=== PATIENT | female | born 1960 | race Caucasian/White ===

== ENCOUNTER 2021-08-06 06:05 | Observation (INO) ==
--- NOTE | 2021-07-14 10:51 | PAT Medication Instructions ---
Medication Instructions Date of Service July 14, 2021 Home Medications Bone Broth 2 cap PO QAM [place] 1 cap PO QAM Turmeric Powder 1 dose PO QAM alfalfa 650 mg tablet 650 mg PO QAM alprazolam 0.5 mg tablet (Xanax) 0.5 mg PO BID PRN ascorbic acid (vitamin C) 1,000 mg capsule,extended release 1 cap PO QAM ascorbic acid 125 mg-collagen, hydrolyzed 740 mg capsule (Collagen Plus Vitamin C) 1 cap PO QAM Adrenal Tincture Otc 1 dose PO QAM Hair Plus Tincture Otc 1 dose PO QAM Kidney Tincture Otc 1 dose PO QAM Liver Gall Bladder Tincture Otc 1 dose PO QAM Lymphatic Tincture Otc 1 dose PO QAM Multi Collagen Otc 2 tab PO QAM Plant Calcium Otc 2 tab PO QAM ibuprofen 200 mg capsule 800 mg PO Q6H PRN lidocaine 5 % topical patch 1 patch TOPICAL DAILY PRN [id number] oil 350 mg- 400 mg capsule 1 cap PO QAM Continue as directed lidocaine 5 % topical patch 1 patch TOPICAL DAILY PRN (avoid placement near surgery site prior to surgery) ASK your surgeon for instructions ibuprofen 200 mg capsule 800 mg PO Q6H PRN STOP taking 2 weeks before surgery (or as soon as possible if surgery is within 2 weeks) Bone Broth 2 cap PO QAM [place] 1 cap PO QAM Turmeric Powder 1 dose PO QAM alfalfa 650 mg tablet 650 mg PO QAM Adrenal Tincture Otc 1 dose PO QAM Hair Plus Tincture Otc 1 dose PO QAM Kidney Tincture Otc 1 dose PO QAM Liver Gall Bladder Tincture Otc 1 dose PO QAM Lymphatic Tincture Otc 1 dose PO QAM Multi Collagen Otc 2 tab PO QAM Plant Calcium Otc 2 tab PO QAM [id number] [id number] oil 350 mg- 400 mg capsule 1 cap PO QAM DO NOT take the morning of surgery ascorbic acid (vitamin C) 1,000 mg capsule,extended release 1 cap PO QAM ascorbic acid 125 mg-collagen, hydrolyzed 740 mg capsule (Collagen Plus Vitamin C) 1 cap PO QAM Take morning of surgery With a small sip of water, OTHERWISE NOTHING TO EAT OR DRINK AFTER MIDNIGHT: alprazolam 0.5 mg tablet (Xanax) 0.5 mg PO BID PRN (if needed) Take evening before surgery alprazolam 0.5 mg tablet (Xanax) 0.5 mg PO BID PRN (if needed) Other Notes If you have any questions please call us at [phone] or [phone] or [phone] or [phone]
--- NOTE | 2021-07-15 14:03 | Anesthesiology Consultation ---
Date of Service July 15, 2021 Assessment & Plan (1) Encounter for pre-operative examination: - leukopenia, 3.6 reduced from 4.5 one year ago. Fritz with surgeon's office advised will fax most recent PCP note for further review. Awaiting most recent PCP note. - Outpatient joint pathway: Pt states discussion with surgeon's office was option through DOS to either go home or stay overnight. We discussed that if she was requesting outpatient joint plan would be to go home same day unless an issue arose. She states is nervous to go home same day and would like booking changed to stay overnight. Fritz with surgeon's office aware. - COVID screening: Per assessment on 07/15/2021: Travel screen negative, no known COVID-19 positive contacts or current COVID-19 related symptoms in past 2 weeks. Patient vaccinated. Surgeon arranging preop COVID testing, scheduled 07/21/2021. Awaiting results. Chart Review Chart Review: Pending: Refer to Additional Notes / Consult section and Patient seen in Pre Admission Testing Teaching & Discussion Pre-Anesthesia Teaching/Discussion Notes: Instructed NPO after midnight before surgery, except medications with 15 cc of water. Medication instructions provided according to the PAT guidelines. History Surgery Operation Date: 07/23/21 09:25 Proposed Procedures p OP: Right Total Hip Arthroplasty - Henrry Barcenas MD Height/Weight Height: 5 ft 4 in Weight: 69.5 kg Allergies Allergy/AdvReac Type Severity Reaction Status Date / Time doxycycline AdvReac Unknown CAN'T Verified 07/10/21 15:00 FUNCTION, CAN'T TALK Medications Home Medications Medication Instructions Recorded Confirmed Last Taken Bone Broth 2 cap PO QAM 05/06/20 07/10/21 05/05/20 [place] 1 cap PO QAM 05/06/20 07/10/21 05/05/20 Turmeric Powder 1 dose PO QAM 05/06/20 07/10/21 05/09/20 10:00 alfalfa 650 mg tablet 650 mg PO QAM 05/06/20 07/10/21 05/05/20 alprazolam 0.5 mg tablet (Xanax) 0.5 mg PO BID PRN 05/06/20 07/10/21 05/09/20 22:00 ascorbic acid (vitamin C) 1,000 mg 1 cap PO QAM 05/06/20 07/10/21 05/05/20 capsule,extended release ascorbic acid 125 mg-collagen, 1 cap PO QAM 05/06/20 07/10/21 05/05/20 hydrolyzed 740 mg capsule (Collagen Plus Vitamin C) Adrenal Tincture Otc 1 dose PO QAM 07/10/21 07/10/21 Unknown Hair Plus Tincture Otc 1 dose PO QAM 07/10/21 07/10/21 Unknown Kidney Tincture Otc 1 dose PO QAM 07/10/21 07/10/21 Unknown Liver Gall Bladder Tincture Otc 1 dose PO QAM 07/10/21 07/10/21 Unknown Lymphatic Tincture Otc 1 dose PO QAM 07/10/21 07/10/21 Unknown Multi Collagen Otc 2 tab PO QAM 07/10/21 07/10/21 Unknown Plant Calcium Otc 2 tab PO QAM 07/10/21 07/10/21 Unknown ibuprofen 200 mg capsule 800 mg PO Q6H PRN 07/10/21 07/10/21 Unknown lidocaine 5 % topical patch 1 patch TOPICAL DAILY PRN 07/10/21 07/10/21 Unknown mioft7-[id number]-other [id number] 1 cap PO QAM 07/10/21 07/10/21 Unknown oil 350 mg- 400 mg capsule Past Medical History Medical History Anxiety and depression Blood clot in vein OVER 20 YEARS AGO, R calf after Heart palpitations rare, denies dizziness, lightheadedness, chest discomfort or shortness of breath; ongoing x yrs; denies change or worsening History of restless legs syndrome with Lyme disease Hx of Lyme disease Post traumatic stress disorder Patient denies h/o stroke, seizures, heart attack, heart failure, DM, HTN, or blood transfusions. Exercise / Class Metabolic Activity II 4-5 Yardwork/Stairs/Walk up hill (denies CP or SOB with 1 FOS, ambulates with cane) Past Family History Family History Aunt Family history of diabetes mellitus Other No family history of adverse response to anesthesia Past Surgical History Surgical History H/O eye surgery LEFT EYE TITANIUM SHELF PLACED AFTER "CRACKING ORBIT" H/O foot surgery LEFT History of arthroscopy of right shoulder 05/10/20: Grade 2 view, MAC 3 ETT 7.5 + PNB. No postop issues per anesthesia progress note. History of cholecystectomy History of colonoscopy History of esophagogastroduodenoscopy (EGD) History of hemorrhoidectomy History of hysterectomy Hx of gynecological procedure VAGINAL RECONSTRUCTION AND BLADDER TACK/MESH Nausea and vomiting after administration of anesthetic agent "ALWAYS GETS MEDICATED TO PREVENT" Past Anesthesia History No Hx of Anesthesia Complications and No Family Hx of Anesthesia Complications History of PONV No Hx of Motion Sickness and History of PONV Social History Smoking Status: Light tobacco smoker tobacco type: cigarettes Smoking cigarettes per day: 5 CIGS A WEEK-NPO Do You Dip or Chew Tobacco: No Hx Alcohol Use: Yes Alcohol type: hard liquor alcohol intake frequency: a few times a month Hx Substance Use: No substance use type: does not use Review of Systems Occasional snoring, denies witnessed apneas. Patient denies chest pain, shortness of breath, dyspnea on exertion, reflux, fever, chills, cough, or wheezing. Physical Exam Vital Signs Vitals BP 138/85 P 74 TEMP 98.8 SP02 99% on RA RESP 16 Physical Full cervical extension range of motion without pain TMD 3.5 finger breaths Mallampati Score 2 Dentition: intact, denies missing, chipped or loose teeth, caps/crowns, implants or bridges Lungs: normal respiratory effort. Clear throughout to auscultation, no adventitious breath sounds Cardiac: regular rate and rhythm, no murmurs noted Carotid arteries: negative bruit bilat Lab Results Anesthesia Preop Results Results Anesthesia Widget: WBC 3.67 K/uL (4.8-10.8) L 07/15/21 Hgb 13.1 g/dL (12.0-16.0) 07/15/21 Hct 39.4 % (37-47) 07/15/21 Plt 248 K/uL (130-400) 07/15/21 Na 141 mmol/L (136-145) 07/15/21 K 3.9 mmol/L (3.5-5.1) 07/15/21 Cl 106 mmol/L (98-107) 07/15/21 CO2 31 mmol/L (21-32) 07/15/21 BUN 19 mg/dl (6-23) 07/15/21 Creat 0.85 mg/dl (0.6-1.2) 07/15/21 Glucose Level 91 mg/dl (70-99(Fasting)) 07/15/21 PT 10.9 Seconds (9.0-12.0) 07/15/21 PTT 25.3 Seconds (21.0-31.0) 07/15/21 INR 1.0 (0.9-1.1) 07/15/21 HA1c 5.0 % (4.5-5.6) 07/15/21 Urine Color Yellow 07/15/21 Urine Appearance Clear (Clear) 07/15/21 Urine pH 6.5 (4.5-7.5) 07/15/21 Urine Specific [place] 1.024 (1.000-1.030) 07/15/21 Urine Protein Negative (Negative) 07/15/21 Urine Glucose (UA) Negative (Negative) 07/15/21 Urine Ketones Negative (Negative) 07/15/21 Urine Blood Negative (Negative) 07/15/21 Urine Nitrite Negative (Negative) 07/15/21 Urine Bilirubin Negative (Negative) 07/15/21 Urine Urobilinogen Negative (Negative) 07/15/21 Urine Leukocyte Esterase Negative (Negative) 07/15/21 Blood Type O Negative 07/15/21 Antibody Screen NEGATIVE 07/15/21 Testing Electrocardiogram Date: 03/09/21 NSR, rate 61 bpm
--- NOTE | 2021-07-15 16:02 | History & Physical Report ---
Date of Service July 15, 2021 Assessment & Plan (1) Osteoarthritis of right hip: Plan: PRE-OP Diagnosis: Right hip osteoarthritis Planned Procedure: Right total hip arthroplasty Plan: Patient is scheduled to undergo this procedure at the [facility] with a 23-hour observation admission on , July 23, [address] Henrry Barcenas. Risks and complications of the procedure such as: Infection, bleeding, pain, scarring, nerve blood vessel damage, weakness, wound problems, stiffness, incomplete relief of symptoms, hardware failure, hardware loosening, wear, fracture, tendon or ligament injury, dislocation, leg length inequality, blood clots, embolism, heart attack, stroke and were explained to the patient at her visit today. Informed consent to perform the procedure was obtained. Patient also understands risks of proceeding with surgical intervention during the COVID-19 pandemic. Currently she is asymptomatic and understands that she will need to be tested prior to surgery. We have already obtained preoperative medical clearance from the patient's primary care provider Dr. Fox. Patient is scheduled to meet with anesthesia at the hospital later this afternoon and while there she will obtain a CBC with differential, complete metabolic panel, PT/INR, blood type and screen, urinalysis, urine culture and sensitivity, EKG, hemoglobin A1c and a nasal culture for MRSA. During today's visit we discussed discharge planning following surgery. Patient states that she will most likely do in-home physical therapy for the first 2 weeks postoperatively in order for this was placed. We reviewed the total hip packet. We discussed total hip precautions. I recommended the patient's purchase a hip kit, raised toilet seat and shower chair. I provided her with an order to get a walker. We discussed lectures offered by [facility] offered via Zoom in regards to joint replacement surgery. I provided the patient with a handicap placard paperwork for her vehicle. We discussed antibiotic use for dental procedures following joint replacement surgery. I advised the patient that we will discharge her from the hospital on postoperative day 1 with a prescription for narcotic pain medication and an anti-inflammatory. I would like her to purchase extra strength Tylenol and a baby aspirin to use for additional pain control and blood clot prevention respectively. Advised her that the baby aspirin will be taken twice daily for the first 30 days postoperatively. Patient is scheduled for 2-week postoperative follow-up with myself on August 07 at 2 PM. Patient verbalized understanding of all information provided during today's visit. She thanks for the care that she received. She has questions or concerns should arise prior to her surgery, she will contact clinic. History of Present Illness Chief Complaint: Chief Complaint: Right hip pain Primary Care Provider: Phoenix Arias MD History of Present Illness (including history relevant to procedure): This 61-year-old female presents to clinic today for preoperative history and physica l. Patient had an insidious onset of right hip pain that developed in late April and since that time, she has had difficulty walking. She feels the pain in her groin as well as in the posterior aspect of her hip. She sometimes gets a cramping sensation in the front of her quad and burning around the knee. She did have an EMG nerve conduction study done at [facility] that she says showed some abnormalities in L4 and L5. She denies any back pain, however. She has cracking in her hips now, which is painful for her. Patient also showed Dr. Stern who attempted to aspirate fluid from the patient's hip joint under ultrasound guidance but this was unsuccessful and patient continues to have debilitating pain that requires her to use a cane for ambulatory purposes. Review Of Systems: A 12 point review of systems performed was unremarkable except for those things stated in the HPI and past medical history. Past Medical History: Problems: Right hip pain Lipoma Tobacco user Anxiety Procedure History Procedure Procedure Date Comments Suturing of ligament of shoulder joint Hysterectomy Cholecystotomy Reconstruction of orbital cavity Excision 01/01/2021 Allergies and Sensitivities: doxycycline(Unable to speak) doxycycline(Unable to move) Social history: Patient states she occasionally smokes cigarettes and occasionally consumes alcohol. She denies any illicit drug use. Family history: Diabetes Current Home Meds: (Last Updated 07/15 11:17) ALPRAZolam (ALPRAZolam 0.5 mg oral tablet) 30 each Responsible Provider: BRIANA ARANDA 12/22 11:05 acyclovir (acyclovir 400 mg oral tablet) 30 each Responsible Provider: PHOENIX ARIAS 12/22 11:05 Initial Wt: 07/15 69.0 kg 152 lb Allergies Allergy/AdvReac Type Severity Reaction Status Date / Time doxycycline AdvReac Unknown CAN'T Verified 07/10/21 15:00 FUNCTION, CAN'T TALK Home Medications Medication Instructions Recorded Confirmed Type Bone Broth 2 cap PO QAM 05/06/20 07/10/21 History [place] 1 cap PO QAM 05/06/20 07/10/21 History Turmeric Powder 1 dose PO QAM 05/06/20 07/10/21 History alfalfa 650 mg tablet 650 mg PO QAM 05/06/20 07/10/21 History alprazolam 0.5 mg tablet (Xanax) 0.5 mg PO BID PRN 05/06/20 07/10/21 History ascorbic acid (vitamin C) 1,000 mg 1 cap PO QAM 05/06/20 07/10/21 History capsule,extended release ascorbic acid 125 mg-collagen, 1 cap PO QAM 05/06/20 07/10/21 History hydrolyzed 740 mg capsule (Collagen Plus Vitamin C) Adrenal Tincture Otc 1 dose PO QAM 07/10/21 07/10/21 History Hair Plus Tincture Otc 1 dose PO QAM 07/10/21 07/10/21 History Kidney Tincture Otc 1 dose PO QAM 07/10/21 07/10/21 History Liver Gall Bladder Tincture Otc 1 dose PO QAM 07/10/21 07/10/21 History Lymphatic Tincture Otc 1 dose PO QAM 07/10/21 07/10/21 History Multi Collagen Otc 2 tab PO QAM 07/10/21 07/10/21 History Plant Calcium Otc 2 tab PO QAM 07/10/21 07/10/21 History ibuprofen 200 mg capsule 800 mg PO Q6H PRN 07/10/21 07/10/21 History lidocaine 5 % topical patch 1 patch TOPICAL DAILY PRN 07/10/21 07/10/21 History -xgl-sso-other [id number] 1 cap PO QAM 07/10/21 07/10/21 History oil 350 mg- 400 mg capsule Past Med/Surg History Medical History Anxiety and depression Blood clot in vein OVER 20 YEARS AGO, R calf after Heart palpitations rare, denies dizziness, lightheadedness, chest discomfort or shortness of breath; ongoing x yrs; denies change or worsening History of restless legs syndrome with Lyme disease Hx of Lyme disease Post traumatic stress disorder Surgical History H/O eye surgery LEFT EYE TITANIUM SHELF PLACED AFTER "CRACKING ORBIT" H/O foot surgery LEFT History of arthroscopy of right shoulder 05/10/20: Grade 2 view, MAC 3 ETT 7.5 + PNB. No postop issues per anesthesia progress note. History of cholecystectomy History of colonoscopy History of esophagogastroduodenoscopy (EGD) History of hemorrhoidectomy History of hysterectomy Hx of gynecological procedure VAGINAL RECONSTRUCTION AND BLADDER TACK/MESH Nausea and vomiting after administration of anesthetic agent "ALWAYS GETS MEDICATED TO PREVENT" Family History Aunt Family history of diabetes mellitus Other No family history of adverse response to anesthesia Social History Smoking Status: Light tobacco smoker Cigarettes Per Day: 5 CIGS A WEEK-NPO; Second Hand Exposure: No; Hx Alcohol Use: Yes Alcohol type: hard liquor Hx Substance Use: No Preferred Language: Sinhala Communication Ability: Effective Attendant Honor Bar Required: No Beliefs That Will Affect Care: None Current Living Situation: Significant Other current occupational status: unemployed Feels Safe at Home: Yes Assistive Devices: Cane and Glasses Review of Systems All systems reviewed & are unremarkable except as noted in Subjective Physical Exam Physical Exam: Physical Exam: (relevant to the procedure, including heart and lung evaluation) General: Alert and oriented x3 with proper grooming and hygiene Eyes: Pupils are equal and reactive to light with accommodation. Extraocular movements are intact Throat: Deferred due to COVID-19 precautions Cardiac: Regular rate and rhythm with no murmurs or gallops appreciated Lungs: Clear to auscultation throughout with no wheezing, rales or rhonchi Abdomen: Mildly obese, nondistended, nontender with normoactive bowel sounds Extremities: Right hip: Flexion is limited to 110 degrees, external rotation 35 degrees and internal rotation 12 degrees. Straight leg raise test causes referred pain to the groin and posterior lateral hip. Logroll test negative. Stinchfield test positive. Patient experiences tenderness to palpation of her groin and posterior aspect of her hip. She walks with an antalgic gait with her ambulatory assistive device. She is neurovascularly intact in the right lower extremity. Neuro: Cranial nerves II through XII are intact no motor or sensory deficit Skin: Normal in appearance no open skin areas or discharge Results & Data ([facility]) Diagnostic Findings Studies (relevant to the procedure): X-rays done include a standing AP pelvis, false profile, and cross-table lateral views of the right hip. These demonstrate well-preserved joint spaces. Very mild upsloping of the sourcil, less than 10 degrees. No fractures are visualized.
[~2021-08-06 06:05] MED LIST: ACETAMINOPHEN 500 MG TAB PO SCH; CeleBREX 200 MG CAP PO SCH; FAMOTIDINE 20 MG TAB PO SCH; General Order Problem(s) SCH; LR 500ML BOLUS, THEN 15ML/HR IV SCH; LR 60ML/HR IV SCH; ROPIVACAINE 0.5% HCL/PF 150 MG, BUPIVACAINE 0.75% MPF 20 ML, EPINEPHrine 0.15 MG, Ketor... INFIL SCH; Scopolamine 1 MG TDSY TD SCH; TRANEXAMIC ACID 1,000 MG **IV Intra-op IV SCH; TRANEXAMIC ACID 1,000 MG **IV Pre-op IV SCH; ceFAZolin 2000MG 2,000 MG/15 ML SYR IV SCH; dexAMETHasone 4 MG TAB PO SCH; traMADol HCL 50 MG TABLET PO SCH
[2021-08-06] MEDS ORDERED: BUPIVACAINE 0.5 % 5 MG/1 ML PF 10ML VIAL ONE (06:27)
--- NOTE | 2021-08-06 07:44 | History & Physical Bridge Note ---
Date of Service August 06, 2021 History & Physical Bridge Note I have examined the patient, reviewed the History & Physical and in the interval since the performance of the History & Physical I have noted the following changes of clinical significance: no changes noted. Patient asked if she could have the bone that is removed. I told her that I was fairly certain there is a hospital policy against this, but we can ask to confirm whether or not this is true.
[2021-08-06] MEDS ORDERED: fentaNYL citrate 100 MCG/2 ML VIAL ONE (07:48)
[2021-08-06] MEDS ORDERED: PROPOFOL IV EMULSION 10 MG/ML 20 ML VIAL IV ONE ×3 (07:48→09:33)
[2021-08-06] MEDS ORDERED: MIDAZOLAM HCL 1 MG/ML 2ML VIAL ONE (07:48)
[2021-08-06] MEDS ORDERED: LIDOCAINE 2% 2 ML VIAL/AMP(20MG/ML) INFIL ONE (07:48)
[2021-08-06] MEDS ORDERED: ROPIVACAINE 0.5% HCL/PF 150 MG, BUPIVACAINE 0.75% MPF 20 ML, EPINEPHrine 0.15 MG, Ketor... INFIL SCH (08:20)
[2021-08-06] MEDS ORDERED: KETAMINE 50 MG/5 ML SYRINGE ONE (09:19)
--- NOTE | 2021-08-06 10:31 | Operative Report ---
Post Operative Report Pre & Post Diagnosis Operation Date: 08/06/21 08:15 Pre-Op Diagnosis: Right Hip avascular necrosis Post-Op Diagnosis: Right Hip avascular necrosis I identified the patient and participated in the time-out.: Yes Procedure Operation Date: 08/06/21 08:15 Actual Procedures p Right Total Hip Arthroplasty(Right) - Henrry Barcenas MD Surgeon Henrry Barcenas MD [employer] BRIAN Sousa PA-C and JAMIE Yoder2. No resident or fellow was available. Estimated Blood Loss 100 Findings Consistent with Post-Op Diagnosis Specimens Right femoral head Anesthesia Type Spinal MAC Complications none Disposition Disposition: Recovery Room Indications 61-year-old female with right hip pain refractory to conservative management. X-rays and MRI were obtained. This showed evidence of avascular necrosis with edema within the femoral head and subchondral collapse of the superior femoral head weightbearing surface. I had a long discussion with her about the risks and benefits of surgery, alternatives, and expected outcomes. After reviewing all these she elected to proceed with surgery. All questions were answered. Informed consent was signed. Description of Procedure Patient was identified in the preoperative holding area and the surgical site, right hip, was marked. A spinal anesthetic was placed, then the patient was brought back to the main operating room, placed in the operating table and moved into the lateral decubitus position. Axillary roll was placed. All bony prominences were padded. Perioperative antibiotics and tranexamic acid 1 gram IV were administered. Operative extremity was prepped and draped in the normal sterile fashion. Prior to incision a multidisciplinary timeout was called. All in the room were in agreement. We began by making an incision for a posterior approach to the hip. We dissected down through subcutaneous tissues to the level of the fascia. The fascia was incised in line with the incision. Charnley bow was placed. The trochanteric bursa was excised. The piriformis and short external rotators were dissected off the posterior aspect of the hip. A box cut was made in the capsule. The femoral head was dislocated. The femoral neck cut was made at our preoperative template. The acetabulum was then exposed. The labrum was sharply excised. Contents of the cotyloid fossa were removed with electrocautery. We then began reaming at a size 8 mm less than our preoperative template. We reamed up by [address] the way up to a size 50 mm cup. This gave us good bleeding cancellus bone circumferentially. The acetabulum was then irrigated out and dried. The real Blackwell Gription cup was then impacted down into position with 45 degrees of lateral opening and 25 degrees of anteversion. A single cancellous bone screw was placed up into the ilium. Excellent fixation was obtained. An Altrx polyethylene liner for a 32 mm femoral head was then impacted into the shell. The locking mechanism was checked to ensure that it had engaged which it had. Next we turned our attention to the femur. The lateral neck was removed with a box osteotome. Intramedullary guide was used followed by the lateralizing reamer. We then reamed up to a size 3 [place] stem. We then broached all the way up to a size 2. We began trialing with a high offset neck and a +1.5 head. Hip was reduced. Leg lengths were symmetric. The hip was stable in extension and external rotation, and stable in the sleeper position. At 90 degrees of hip flexion the hip could be internally rotated 65 degrees before levering out of the cup. I was very happy with the stability exam. Therefore the hip was dislocated and the femoral trial was removed. The femoral canal was irrigated and dried. The real size 2 high offset [place] femoral stem was opened up. This was impacted down into position. It sat at the same level as the femoral trial. Therefore the 32 mm ceramic femoral head with a +1.5 mm offset was opened up and gently impacted down onto the trunnion. The hip was atraumatically reduced. Another 1 gram of IV tranexamic acid was started prior to closure. The wound was irrigated out with sterile Betadine solution. The periarticular injection cocktail was then placed. The short external rotators, piriformis, and posterior capsule were repaired through drill holes in the greater trochanter u sing #2 Vicryl. The fascia was run with a looped #1 PDS. The subcutaneous layer was closed with #1 PDS. The dermal layer was closed with 2-0 Vicryl. Zip line was used for the skin followed by a Silverlon dressing. A compressive dressing was then placed. The patient was then rolled supine. Leg lengths were rechecked and were symmetric. An abduction pillow was placed. Sedation was lifted and the patient was transferred to recovery room in stable condition. Summary of implants: Depuy Blackwell Gription Acetabular Shell Sector Cup, 50 mm outer diameter Blackwell Cancellous bone screw, 6.5 x 35 mm Blackwell Altrx Polyethylene Acetabular Liner, Neutral, with a 32 mm inner diameter DePuy [place] Femoral stem with [place], 12/14 taper, size 2 high offset 32 mm ceramic femoral head with +1.5 offset Postoperative course: Patient will be admitted to the hospital from the recovery room. Patient will be weightbearing as tolerated with posterior hip precautions. Aspirin for DVT prophylaxis I attest to the content of the Intraoperative Record and any orders documented therein. Any exceptions are noted below.
[2021-08-06] MEDS ORDERED: METOCLOPRAMIDE HCL INJ 5 MG/ML 2 ML VIAL IV PRN (10:39)
[2021-08-06] MEDS ORDERED: ALUMINUM/MAGNESIUM SUSP 30 ML UDC PO PRN (10:39)
[2021-08-06] MEDS ORDERED: MAGNESIUM HYDROXIDE SUSP 30 ML UDC PO PRN (10:39)
[2021-08-06] MEDS ORDERED: NALOXONE HCL 0.4 MG/1 ML VIAL/CARP IV PRN (10:39)
[2021-08-06] MEDS ORDERED: diphenhydrAMINE 50 MG/ML VIAL IV PRN (10:39)
[2021-08-06] MEDS ORDERED: bisacodyL 10 MG SUPP PR PRN (10:39)
[2021-08-06] MEDS ORDERED: ONDANSETRON INJ 2 MG/ML 2 ML VIAL IV PRN (10:39)
--- NOTE | 2021-08-06 10:39 | Operative Report ---
Post Operative Report Pre & Post Diagnosis Operation Date: 08/06/21 08:15 Pre-Op Diagnosis: Right Hip Osteoarthritis Post-Op Diagnosis: Right Hip Osteoarthritis I identified the patient and participated in the time-out.: Yes Procedure Operation Date: 08/06/21 08:15 Actual Procedures p Right Total Hip Arthroplasty(Right) - Henrry Barcenas MD Surgeon Henrry Barcenas MD [facility] BRIAN Sousa PA-C and Robyn Vance MS-2. No resident or fellow was available. Estimated Blood Loss 100 Findings Consistent with Post-Op Diagnosis Specimens femoral head Description of Procedure I was present during the entire case assisting with positioning, prepping, draping, wound retraction, wound closure, dressing and abduction pillow placement. No fellow present. Please see Dr. Barcenas procedure note for specifics of the case. I attest to the content of the Intraoperative Record and any orders documented therein. Any exceptions are noted below.
[2021-08-06] MEDS ORDERED: IBUPROFEN 200 MG PO PRN (10:42)
[2021-08-06] MEDS ORDERED: ALPRAZolam 0.5 MG TABLET PO PRN (10:42)
[2021-08-06] MEDS ORDERED: LIDOCAINE 5% 1 PATCH TD PRN (10:42)
[2021-08-06] MEDS ORDERED: KETOROLAC TROMETHAMINE 15 MG/ML VIAL IV SCH (10:45)
[2021-08-06] MEDS ORDERED: SODIUM CHLORIDE 0.9% 1000ML 1,000 ML IV SCH (10:45)
--- NOTE | 2021-08-06 11:07 | XRay Report ---
XR pelvis 1-2V routine CLINICAL HISTORY: Post Surgical COMPARISON: Right hip radiographs April 16, 2021. FINDINGS: Alignment of the total right hip arthroplasty is anatomic. No periprosthetic fracture or u nexpected radiopaque foreign body. Acetabular screw is noted. IMPRESSION: Expected findings following total right hip arthroplasty. ACT 112: Negative or not required by law. Electronically signed by: Deric Ayala M.D. 08/06/2021 11:06 AM
--- NOTE | 2021-08-06 12:05 | Anesthesiology Progress Note ---
Date of Service August 06, 2021 Anesthesia Post Procedure Vital Signs Vital Signs: Temp Pulse Resp BP Pulse Ox 08/06/21 11:35 55 L 16 137/81 98 08/06/21 11:25 54 L 16 129/82 97 08/06/21 11:15 36.6 C 54 L 16 132/74 97 08/06/21 11:05 59 L 18 128/70 97 08/06/21 10:55 58 L 16 132/75 98 08/06/21 10:45 54 L 16 120/79 94 08/06/21 10:37 36.7 C 75 18 112/74 97 08/06/21 06:32 36.7 C 63 20 156/95 H 97 Transfer of Care Handoff Completed per policy Notes Mental Status: alert / awake / arousable and participated in evaluation Patient Amnestic to Procedure: Yes Nausea / Vomiting: adequately controlled Pain: adequately controlled Airway Patency, RR, SpO2: stable & adequate BP & HR: stable & adequate Hydration State: stable & adequate Neuraxial Anesthesia: was administered and sensory block is resolving Anesthetic Complications: no major complications apparent
[2021-08-06] MEDS: ACETAMINOPHEN 500 MG TAB PO SCH ×2 (13:58→22:11)
[2021-08-06] MEDS: KETOROLAC TROMETHAMINE 15 MG/ML VIAL IV SCH ×2 (13:59→20:19)
[2021-08-06] MEDS: Scopolamine CHECK PATCH PLACEMENT SCH ×2 (16:05→23:00)
[2021-08-06] MEDS: ceFAZolin 2000MG 2,000 MG/15 ML SYR IV SCH (16:05)
[2021-08-06] MEDS ORDERED: TRANEXAMIC ACID / 0.7% NACL 1,000 MG/100 ML BAG IV SCH (16:45)
[2021-08-06] MEDS: oxyCODONE HCL IR 5 MG TAB (IMMEDIATE RELEASE) PO PRN ×2 (17:44→22:11)
[2021-08-06] MEDS: DOCUSATE SODIUM 100 MG CAP PO SCH (20:20)
[2021-08-06] MEDS ORDERED: COUGH DROP (SUGAR FREE) LOZ 24 LOZ/1 BOX BUCCAL ONE (20:27)
[2021-08-06] MEDS ORDERED: SENNA 8.6 MG TAB PO SCH (21:00)
[2021-08-07] MEDS: ceFAZolin 2000MG 2,000 MG/15 ML SYR IV SCH (01:49)
[2021-08-07] MEDS: KETOROLAC TROMETHAMINE 15 MG/ML VIAL IV SCH ×2 (01:51→08:46)
[2021-08-07] MEDS: oxyCODONE HCL IR 5 MG TAB (IMMEDIATE RELEASE) PO PRN ×3 (02:30→10:52)
[2021-08-07] MEDS: ACETAMINOPHEN 500 MG TAB PO SCH (06:20)
[2021-08-07 07:03] LABS: Basophils # (auto) 0.01 K/uL (0-0.2); Basophils % (auto) 0.1 %; Eosinophils # (auto) 0.01 K/uL (0-0.5); Eosinophils % (auto) 0.1 %; Hematocrit (blood only) 38.1 % (37-47); Hemoglobin 13.5 g/dL (12.0-16.0); Immature Granulocytes # (auto) 0.01 K/uL (0.00-0.02); Immature Granulocytes % (auto) 0.1 %; Lymphocytes # (auto) 1.61 K/uL (1.2-3.4); Lymphocytes % (auto) 20.8 %; Mean Corpuscular Hemoglobin 33.7 pg (25-34); Mean Corpuscular Hgb Conc 35.4 g/dL (32-36); Mean Platelet Volume 9.6 fL (7.4-10.4); Monocytes # (auto) 0.74 K/uL (0.11-0.59); Monocytes % (auto) 9.6 %; Neutrophils # (auto) 5.36 K/uL (1.4-6.5); Neutrophils % (auto) 69.3 %; Platelet Count 232 K/uL (130-400); RDW Coefficient of Variation 12.6 % (11.5-14.5); RDW Standard Deviation 44.1 fL (36.4-46.3); Red Blood Count 4.01 M/uL (4.2-5.4); White Blood Count 7.74 K/uL (4.8-10.8)
[2021-08-07 07:23] LABS: BUN Creatinine Ratio 21.7 (10-20); Calcium 9.7 mg/dl (8.5-10.1); Est GFR (African American) 113.2 ml/min; Est GFR (Non-African American) 97.7 ml/min; Potassium 3.9 mmol/L (3.5-5.1)
[2021-08-07] MEDS ORDERED: dexAMETHasone 4 MG TAB PO SCH (08:00)
[2021-08-07] MEDS: Scopolamine CHECK PATCH PLACEMENT SCH (08:46)
[2021-08-07] MEDS: DOCUSATE SODIUM 100 MG CAP PO SCH (08:48)
[2021-08-07] MEDS ORDERED: [UNRECOGNIZED DRUG - OTHER] PO SCH (09:00)
[2021-08-07] MEDS ORDERED: [UNRECOGNIZED DRUG - OTHER] PO SCH (09:00)
[2021-08-07] MEDS ORDERED: ASCORBIC ACID COLLAGEN PO SCH (09:00)
[2021-08-07] MEDS ORDERED: ALFALFA PO SCH (09:00)
[2021-08-07] MEDS ORDERED: TURMERIC PO SCH (09:00)
[2021-08-07] MEDS ORDERED: MORINGA PO SCH (09:00)
[2021-08-07] MEDS ORDERED: MULTIVITAMIN TAB PO SCH (09:00)
[2021-08-07] MEDS ORDERED: [UNRECOGNIZED DRUG - OTHER] PO SCH (09:00)
[2021-08-07] MEDS ORDERED: ASPIRIN 81 MG ECTAB PO SCH (09:00)
[2021-08-07] MEDS ORDERED: CALCIUM PO SCH (09:00)
[2021-08-07] MEDS ORDERED: [UNRECOGNIZED DRUG - OTHER] PO SCH (09:00)
[2021-08-07] MEDS ORDERED: [UNRECOGNIZED DRUG - OTHER] PO SCH (09:00)
[2021-08-07] MEDS ORDERED: OMEGA-3 (PURIFIED FISH OIL) 1 GM CAP PO SCH (09:00)
[2021-08-07] MEDS ORDERED: [UNRECOGNIZED DRUG - OTHER] PO SCH (09:00)
[2021-08-07] MEDS ORDERED: ASCORBIC ACID 500 MG TAB PO SCH (09:00)
[2021-08-07] MEDS ORDERED: [UNRECOGNIZED DRUG - OTHER] PO SCH (09:00)
[2021-08-07] MEDS ORDERED: [UNRECOGNIZED DRUG - OTHER] PO SCH (09:00)
--- NOTE | 2021-08-07 09:59 | Orthopedic Progress Note ---
Date of Service August 07, 2021 Assessment & Plan (1) S/P total hip arthroplasty: Plan: Total hip precautions reviewed Weightbearing as tolerated with walker assistance Keep Silverlon dressing in place Ice with easy wrap Pain control with p.o. medication DVT prophylaxis with aspirin and MELLY stockings Plan on discharge home around lunchtime today with in-home physical therapy Abduction pillow use x6 weeks Follow-up at [facility] orthopedics as previously scheduled With questions contact our clinic at [phone] Admission and Anticipated Discharge Date Admission Date: August 06, 2021 Subjective This 61-year-old female is day 1 status post right total hip arthroplasty. She states that she is doing very well. She states that her pain is well controlled with p.o. pain medication. She states that she already worked with PT and OT this morning and was able to do a complete lap around the [address]. She states that she is ready to be discharged home. Currently she denies any signs or symptoms of infection. She has no chest pain, shortness of breath, fever, chills, sweats, lethargy, numbness or tingling in her right lower extremity. She also denies nausea, vomiting, diarrhea or difficulty voiding. Review of Systems Review of Systems: All systems reviewed & are unremarkable except as noted in Subjective Physical Exam Physical Exam: Right hip: Patient is able to perform active straight leg raise test. She is able to actively dorsi and plantarflex her foot. Quad strength is 3 out of 5. Patient is neurovascular intact in the right lower extremity. Her calf is soft and supple nontender to palpation. Logroll test negative. Hip flexion to 90 degrees passively causes no pain. Patient experiences no pain with light passive external rotation but does have some slight tension with very light passive internal rotation. Her surgical incision site is covered with a Silverlon that is clean dry and intact. Results & Data ([facility]) Vital Signs (Past 12 Hours) Vital Signs Temp Pulse Resp BP Pulse Ox 08/07/21 07:23 36.4 C L 54 L 16 129/88 100 08/07/21 02:50 37.2 C 57 L 16 148/84 H 98 08/07/21 00:26 36.6 C 65 16 145/75 H 99 Diagnostic Findings Laboratory Results WBC 7.74 K/uL (4.8-10.8) 08/07/21 06:33 RBC 4.01 M/uL (4.2-5.4) L 08/07/21 06:33 Hgb 13.5 g/dL (12.0-16.0) 08/07/21 06:33 Hct 38.1 % (37-47) 08/07/21 06:33 MCV 95.0 fL (80-100) 08/07/21 06:33 MCH 33.7 pg (25-34) 08/07/21 06:33 MCHC 35.4 g/dL (32-36) 08/07/21 06:33 RDW Std Deviation 44.1 fL (36.4-46.3) 08/07/21 06:33 RDW Coeff of Thomas 12.6 % (11.5-14.5) 08/07/21 06:33 Plt Count 232 K/uL (130-400) 08/07/21 06:33 MPV 9.6 fL (7.4-10.4) 08/07/21 06:33 Immature Gran % (Auto) 0.1 % 08/07/21 06:33 Neut % (Auto) 69.3 % 08/07/21 06:33 Lymph % (Auto) 20.8 % 08/07/21 06:33 [place] % (Auto) 9.6 % 08/07/21 06:33 Eos % (Auto) 0.1 % 08/07/21 06:33 Baso % (Auto) 0.1 % 08/07/21 06:33 Neut # (Auto) 5.36 K/uL (1.4-6.5) 08/07/21 06:33 Lymph # (Auto) 1.61 K/uL (1.2-3.4) 08/07/21 06:33 [place] # (Auto) 0.74 K/uL (0.11-0.59) H 08/07/21 06:33 Eos # (Auto) 0.01 K/uL (0-0.5) 08/07/21 06:33 Baso # (Auto) 0.01 K/uL (0-0.2) 08/07/21 06:33 Immature Gran # (Auto) 0.01 K/uL (0.00-0.02) 08/07/21 06:33 Sodium 136 mmol/L (136-145) 08/07/21 06:33 Potassium 3.9 mmol/L (3.5-5.1) 08/07/21 06:33 Chloride 105 mmol/L (98-107) 08/07/21 06:33 Carbon Dioxide 27 mmol/L (21-32) 08/07/21 06:33 Anion Gap 4 (3-11) 08/07/21 06:33 BUN 13 mg/dl (6-23) 08/07/21 06:33 Creatinine 0.60 mg/dl (0.6-1.2) 08/07/21 06:33 Est Cr Clr Drug Dosing 89.0 ml/min 08/07/21 06:33 Est GFR ( Amer) 113.2 ml/min 08/07/21 06:33 Est GFR (Non-Af Amer) 97.7 ml/min 08/07/21 06:33 BUN/Creatinine Ratio 21.7 (10-20) H 08/07/21 06:33 Glucose 105 mg/dl (70-99(Fasting)) H 08/07/21 06:33 Calcium 9.7 mg/dl (8.5-10.1) 08/07/21 06:33 SARS-CoV-2, RNA, NAAT NEGATIVE (NEGATIVE) 08/06/21 06:40 Impressions Pelvis X-Ray 08/06/21 10:39 XR pelvis 1-2V routine CLINICAL HISTORY: Post Surgical COMPARISON: Right hip radiographs April 16, 2021. FINDINGS: Alignment of the total right hip arthroplasty is anatomic. No periprosthetic fracture or unexpected radiopaque foreign body. Acetabular screw is noted. IMPRESSION: Expected findings following total right hip arthroplasty. ACT 112: Negative or not required by law. Electronically signed by: Deric Ayala M.D. 08/06/2021 11:06 AM
--- NOTE | 2021-08-07 10:05 | Discharge Summary ---
Date of Service August 07, 2021 Admission HPI Per Admitting Provider History of Present Illness (including history relevant to procedure): This 61-year-old female presents to clinic today for preoperative history and physical. Patient had an insidious onset of right hip pain that developed in late April and since that time, she has had difficulty walking. She feels the pain in her groin as well as in the posterior aspect of her hip. She sometimes gets a cramping sensation in the front of her quad and burning around the knee. She did have an EMG nerve conduction study done at [facility] that she says showed some abnormalities in L4 and L5. She denies any back pain, however. She has cracking in her hips now, which is painful for her. Patient also showed Dr. Stern who attempted to aspirate fluid from the patient's hip joint under ultrasound guidance but this was unsuccessful and patient continues to have debilitating pain that requires her to use a cane for ambulatory purposes. Review Of Systems: A 12 point review of systems performed was unremarkable ex cept for those things stated in the HPI and past medical history. Past Medical History: Problems: Right hip pain Lipoma Tobacco user Anxiety Procedure History Procedure Procedure Date Comments Suturing of ligament of shoulder joint Hysterectomy Cholecystotomy Reconstruction of orbital cavity Excision 01/01/2021 Allergies and Sensitivities: doxycycline(Unable to speak) doxycycline(Unable to move) Social history: Patient states she occasionally smokes cigarettes and occasionally consumes alcohol. She denies any illicit drug use. Family history: Diabetes Current Home Meds: (Last Updated 07/15 11:17) ALPRAZolam (ALPRAZolam 0.5 mg oral tablet) 30 each Responsible Provider: BRIANA ARANDA 12/22 11:05 acyclovir (acyclovir 400 mg oral tablet) 30 each Responsible Provider: PHOENIX ARIAS 12/22 11:05 Initial Wt: 07/15 69.0 kg 152 lb Admission Exam Per Admitting Provider Physical Exam: (relevant to the procedure, including heart and lung evaluation) General: Alert and oriented x3 with proper grooming and hygiene Eyes: Pupils are equal and reactive to light with accommodation. Extraocular movements are intact Throat: Deferred due to COVID-19 precautions Cardiac: Regular rate and rhythm with no murmurs or gallops appreciated Lungs: Clear to auscultation throughout with no wheezing, rales or rhonchi Abdomen: Mildly obese, nondistended, nontender with normoactive bowel sounds Extremities: Right hip: Flexion is limited to 110 degrees, external rotation 35 degrees and internal rotation 12 degrees. Straight leg raise test causes referred pain to the groin and posterior lateral hip. Logroll test negative. Stinchfield test positive. Patient experiences tenderness to palpation of her groin and posterior aspect of her hip. She walks with an antalgic gait with her ambulatory assistive device. She is neurovascularly intact in the right lower extremity. Neuro: Cranial nerves II through XII are intact no motor or sensory deficit Skin: Normal in appearance no open skin areas or discharge Principal Diagnosis Right hip osteoarthritis (avascular necrosis) Discharge Exam Right hip: Patient is able to perform active straight leg raise test. She is able to actively dorsi and plantarflex her foot. Quad strength is 3 out of 5. Patient is neurovascular intact in the right lower extremity. Her calf is soft and supple nontender to palpation. Logroll test negative. Hip flexion to 90 degrees passively causes no pain. Patient experiences no pain with light passive external rotation but does have some slight tension with very light passive internal rotation. Her surgical incision site is covered with a Silverlon that is clean dry and intact. Discharge Data Allergies Allergy/AdvReac Type Severity Reaction Status Date / Time doxycycline AdvReac Unknown CAN'T Verified 08/06/21 06:30 FUNCTION, CAN'T TALK Procedures Performed Operation Date: 08/06/21 08:15 Actual Procedures p Right Total Hip Arthroplasty(Right) - Henrry Barcenas MD Hospital Course (1) S/P total hip arthroplasty: Patient had an uneventful overnight stay following right total hip arthr oplasty. She states she did very well with PT and OT this morning. She is ready to be discharged home. She discussed in-home physical therapy with case management. She is very pleased with the results of her surgery. Total hip precautions reviewed Weightbearing as tolerated with walker assistance Keep Silverlon dressing in place Ice with easy wrap Pain control with p.o. medication DVT prophylaxis with aspirin and MELLY stockings Plan on discharge home around lunchtime today with in-home physical therapy Abduction pillow use x6 weeks Follow-up at [facility] as previously scheduled With questions contact our clinic at [phone] Total Time Total Time Spent Total Time Spent (In Minutes): 20 mins Discharge Plan Discharge Items Patient Disposition: Home - Home Health Services Reason For Visit: Right Hip Osteoarthritis Discharge Diagnosis: Right Hip Osteoarthritis Activity: As commented below Lifting: None Bathing: Keep incision dry Bathing Comment: May shower tomorrow Sexual Activity: Wait until after follow-up appointment Exercise/Sports: Wait until after follow-up appointment Driving/Machine Use: No driving until cleared by podiatrist orthopedic Weightbearing: Right weightbearing Weightbearing Comment: as tolerated with walker assistance Non-emergency contact: Surgeon Call non-emergency contact if: you have any medication questions, your pain is not controlled, your temperature is above 101.5, your wound has increased drainage and your wound pain has increased Follow-up/Referrals: Phoenix Arias MD [Primary Care Provider] - Diet: Regular Addtl Attending Provider Instructions: Post-operative Instructions Dear Patient and Family/Friends, Before you are discharged from the hospital, it is important to know what to expect when you get home after surgery. To that end, we have created this sheet of discharge instructions which covers many commonly asked questions. Make sure you go through this sheet in its entirety with your nurse before you are discharged. Please note that we will go over the specifics of your surgery and recovery when you return for your first post-operative visit. Sincerely, Dr. Barcenas Medications 1. Oxycodone 5 mg: take 1-2 tabs every 4-6 hours as needed for pain. A prescription will be sent to your pharmacy for this medication. 2. Diclofenac Sodium 75 mg: take 1 tab twice daily for the first 30 days post operatively for pain and inflammation relief. A prescription will be sent to your pharmacy with 1 refill. 3. Aspirin 81 mg: take 1 tab twice daily for blood clot prevention. Please purchase. 4. Extra Strength Tylenol 500 mg: take 2 tabs every 6-8 hrs as needd for additional pain relief. Pain Expect to be in a fair amount of pain after surgery. Remember, our goal is not to eliminate your pain, but to make it tolerable. It is a good idea to stay ahead of your pain by taking the medications you were prescribed once you get home. Typically, the pain starts improving 3-7 days after surgery. You should start weaning off the narcotic pain medication (oxycodone, hydrocodone, hydromorphone, morphine) as soon as your pain improves. Please call our office if your pain is not adequately controlled. Ice Ice your operative site at least 5 times a day for 15-30 minutes at a time. Make sure you have a thin cloth between the ice or cooling unit and your skin to prevent allan bite. This is especially important if you received a nerve block. Continue icing your operative site for the first 5-7 days after surgery, then as needed. Diet/Nausea/Vomiting Start by drinking clear liquids and eating crackers. If you can tolerate this, then you may resume your normal diet. If you feel nauseated or vomit, take Zofran/ondansetron (if prescribed). Please call our office if you have intractable nausea or vomiting, or, if after hours, you may go to the Emergency Room for help. Constipation Constipation is a common side effect of narcotic pain medication. If you have not had a bowel movement within 2 days after surgery, we recommend purchasing an over the counter laxative such as Milk of Magnesia, Dulcolax, or Miralax from a local pharmacy, and taking it as instructed. Call our clinic if any questions. Nerve block The anesthesia team sometimes places a nerve block to help with post-operative pain control. This results in significant numbness and inability to move the extremity. The nerve block usually wears off in 8-12 hours, but sometimes can last up to 24 hours. Please call our office if you are still unable to move your extremity after 24 hours, unless you received a pain pump to take home. Nerve blocks typically wear off quickly, so start taking pain medication as soon as you start feeling soreness near your surgical site. Weight bearing and Range of Motion. Do not bear any weight through your operative extremity immediately after surgery. If you had upper extremity surgery, do not lift anything with that arm. If you are in a knee brace, keep it locked in place until your follow-up. We will discuss your weight bearing, range of motion, and lifting restrictions in detail at your first post-operative appointment. Continuous Passive Motion (CPM) Machine If you were prescribed a CPM machine, it will start after your first post- operative appointment, at which time we will give you instructions on the range of motion settings and duration of treatment Physical therapy You will be given a prescription for physical therapy or occupational therapy at your first post-operative appointment. Typically, patients start therapy within 1 week of surgery Wound care and showering We will inspect your wound at your first post-operative visit, and may do a dressing change at that time. Most patients will be in a water-proof dressing that is removed 14 days after surgery. It is normal to see some dried blood on the dressing. Do not remove your dressing, paper strips or sutures yourself unless you are given permission. Showering is allowed the day after surgery. Do not scrub or remove any dressings. The wound should not be submerged underwater (i.e. in a bathtub or pool) until 4 weeks after surgery MELLY stockings If you were given white stockings, these are to be worn at all times except to shower (on both legs) for the first 2 weeks after surgery. Driving You may not drive while taking narcotic pain medication or while in a cast, splint, sling or brace. You, the patient, need to make the final determination about when you are safe to drive, however, the earliest you may consider driving after surgery is below: Hand/Wrist/Elbow Surgery: 3 days Shoulder Surgery: 2 weeks Hip,/Knee/Ankle Surgery: 4 weeks Fracture repair: 6 weeks Return to Work Your return to work depends on what surgery was done and what type of work you do. Please bring any paperwork your employer needs completed to your first post-operative visit. Also, bring a description of your job duties, as this helps us to understand what risks you may face at work. Travel Avoid long distance travel (greater than 1 hour) in airplanes and cars for the first 6 weeks after surgery. If you must travel, you need to have a Doppler ultrasound done before you travel to rule out a blood clot in your legs. Follow-up You should have a follow-up appointment already scheduled 1-2 days after surgery. If not, please contact our office to make this appointment before you leave the hospital. When to call the office It is normal to have swelling and bruising in the limb that was operated on. This will improve with time. It is also normal to have fevers for the first 2 days after surgery. Reasons you should call your doctor include: Uncontrolled pain; Nausea, vomiting, or constipation that does not improve with medication; Fevers over 101.5, chills, sweats; Drainage or bleeding from the wound; Foul odor; Spreading areas of redness; Any other concerns Pending Studies at Discharge: No Stand-Alone Forms: My [facility] [address], Smoking Cessation Medications and DC Order Prescriptions: New oxycodone 5 mg tablet 5 mg PO Q4H Qty: 28 RF: 0 diclofenac sodium 75 mg tablet,delayed release (DR/EC) 75 mg PO BID 30 Days Qty: 60 RF: 1 Continued alprazolam [Xanax] 0.5 mg Tablet 0.5 mg PO BID PRN (Reason: Anxiety) RF: 0 alfalfa 650 mg Tablet 650 mg PO QAM RF: 0 ascorbic acid (vitamin C) 1,000 mg Capsule, Extended Release 1 cap PO QAM RF: 0 Collagen Plus Vitamin C 125-740 mg Capsule 1 cap PO QAM RF: 0 Bone Broth 2 cap PO QAM RF: 0 [place] 1 cap PO QAM RF: 0 Turmeric Powder 1 dose PO QAM RF: 0 Plant Calcium Otc 2 tab PO QAM RF: 0 Multi Collagen Otc 2 tab PO QAM RF: 0 ibuprofen 200 mg Capsule 800 mg PO Q6H PRN (Reason: Pain) RF: 0 lidocaine 5 % Adhesive Patch,Medicated 1 patch TOPICAL DAILY PRN (Reason: Pain) RF: 0 [id number] oil 350-400 mg Capsule 1 cap PO QAM RF: 0 Kidney Tincture Otc 1 dose PO QAM RF: 0 Lymphatic Tincture Otc 1 dose PO QAM RF: 0 Adrenal Tincture Otc 1 dose PO QAM RF: 0 Hair Plus Tincture Otc 1 dose PO QAM RF: 0 Liver Gall Bladder Tincture Otc 1 dose PO QAM RF: 0 Discharge Orders: Discharge Order (Routine); Ordered 08/07/21 Ordered By: Henrry Sousa Admission Data Admit Date/Time: 08/06/21 10:39 Attending Provider: Henrry Barcenas Admit Provider: Henrry Barcenas Primary Care Provider: Phoenix Arias Other Providers: [facility]
[2021-08-07] MEDS ORDERED: CeleBREX 200 MG CAP PO SCH (21:00)
== END 2021-08-07 13:34 | disposition home health service (06) ==
LOC: ASU 06:05 → 3E 06:05

== ENCOUNTER 2022-08-15 16:19 | Inpatient (IN) ==
[2022-08-15] MEDS ORDERED: SODIUM CHLORIDE 0.9% 1000ML 500 ML IV ONE (16:31)
[2022-08-15] MEDS ORDERED: HYDROmorphone INJ 1 MG/ML SYRINGE IV STA (16:31)
[2022-08-15] MEDS ORDERED: ONDANSETRON INJ 2 MG/ML 2 ML VIAL IV STA (16:31)
[2022-08-15 16:52] LABS: Hematocrit (blood only) 41.6 % (37.0-47.0); Hemoglobin 14.6 g/dl (12.0-16.0); Mean Corpuscular Hgb Conc 35.1 g/dL (32.0-36.0); Mean Platelet Volume 9.2 fL (9.4-12.4); Platelet Count 222 K/uL (130-400); RDW Standard Deviation 46.1 fL (36.4-46.3); Red Blood Count 4.29 M/uL (4.20-5.40); White Blood Count 3.42 K/ul (4.8-10.8)
--- NOTE | 2022-08-15 16:58 | Emergency Department Note ---
Impression & Plan Acute right hip pain, Dislocation of right hip ED Provider Note NAME: PITO LI AGE: 62 SEX: F : 1960 ARRIVES VIA: Ambulance INFORMANT: [Patient] ED PROVIDER(S): [Alex Loving MD] CHIEF COMPLAINT: Hip pain HISTORY OF PRESENT ILLNESS: The patient is a 62-year-old female with a history of a right hip replacement who states that about 45 minutes ago she was in the shower. She had her right leg up on a shelf shaving. She turned the right leg in and felt the right hip pop out of position. She understands that she went past center with the knee and she was told never to do this. She had immediate pain. She did not fall. She denies any other injury. No loss of consciousness. In route, she was given 200 mcg of IV fentanyl for pain control. The pain is starting to return. She feels spasms of the muscle in the area of the right hip. Patient is not on blood thinning agents. She takes medication for anxiety fairly regularly. She is quite anxious at the moment. PMHx/PSHx: See Below SOCIAL HISTORY: See Below. PHYSICAL EXAM: GENERAL: Patient is in moderate distress from pain, anxious. HEENT: No acute trauma, normocephalic atraumatic, mucous membranes moist, no nasal congestion. NECK: No stridor, no adenopathy, no meningismus, trachea is midline. LUNGS: Clear to auscultation bilaterally, no wheeze, no rhonchi, breath sounds equal. HEART: Without murmurs gallops or rubs, regular rate and rhythm. ABDOMEN: Soft, nontender, bowel sounds positive, no peritonitis. EXTREMITIES: No cyanosis or edema. The patient has a strong distal right pedal pulse. The right lower extremity is slightly flexed at the knee and internally rotated. She is tender in the area of the right hip and any movement of the right hip causes significant pain. No pain at the knee, ankle or foot. NEUROLOGIC: Oriented x 3, no acute motor or sensory deficits, no focal weakness. SKIN: No rash, no jaundice, no diaphoresis. DIFFERENTIAL DIAGNOSIS: Hip dislocation, hip fracture, sprain, strain, contusion, neurovascular compromise, among others. EMERGENCY DEPARTMENT COURSE/PROCEDURES: Prior/Outside records reviewed: EMS notes. MEDICAL DECISION MAKING: There is no leukocytosis. There is no anemia. Platelet count is normal. No renal failure or significant electrolyte abnormality. COVID test returned negative. Right hip and pelvis films per my review show a right hip dislocation. There was no fracture. On exam, the patient had pain in the area of the right hip. The right lower extremity was internally rotated and flexed slightly at the knee. There was a strong distal right dorsalis pedis pulse. I could not find evidence for injury elsewhere by exam or history. Patient received IV Dilaudid for pain control. She was given a 500 cc saline bolus. She received IV Zofran for nausea. She was made NPO. The patient had eaten about 2.5 hours ago. She would be ready for conscious/ deep sedation at around 10 PM. I spoke with Dr. Kevin of orthopedics. We discussed the case. Anesthesia was consulted. They felt the patient would be appropriate for the OR at 8 PM, 2 hours earlier than the 10 PM required by our protocols. The patient will be sent to the OR for her hip reduction. She understands she does have to wait a few more hours until the appropriate time post ingestion has been reached. She is currently resting comfortably after the Dilaudid. DISPOSITION: Patient is being transferred to the OR for hip reduction. Past Med/Surg History Medical History Anxiety and depression Blood clot in vein 20+ years ago Right calf () Heart palpitations Rare occurrences x years History of COVID-19 Early 10/2021, runny nose, DUMONT > resolved History of restless legs syndrome with Lyme disease Hx of Lyme disease Leukopenia Chronic, PCP aware/monitoring Lipoma of arm Post traumatic stress disorder Surgical History (Updated 01/08/22 @ 10:17 by Margoth Liu RN) H/O excision of mass Left upper arm by a [employer] [facility] Dr. Dany Dumont Lipoma H/O eye surgery LEFT EYE TITANIUM SHELF PLACED AFTER "CRACKING ORBIT" H/O foot surgery LEFT History of arthroscopy of right shoulder 05/10/20: Grade 2 view, MAC 3 ETT 7.5 + PNB. No postop issues per anesthesia progress note. History of cholecystectomy History of colonoscopy History of esophagogastroduodenoscopy (EGD) History of hemorrhoidectomy History of hysterectomy History of total right hip replacement 08/2021 mn Hx of gynecological procedure VAGINAL RECONSTRUCTION AND BLADDER TACK/MESH Nausea and vomiting after administration of anesthetic agent "ALWAYS GETS MEDICATED TO PREVENT" S/P excision of lipoma (01/07/22) Excision Recurrent Lipoma Left Upper Extremity(Left) 6 cm x 3 cm - Ashok Carter MD, FACS Family History Aunt Family history of diabetes mellitus Other No family history of adverse response to anesthesia Social History Smoking Status: Former smoker Tobacco Type: Cigarettes Cigarettes Per Day: 5 CIGS A WEEK-NPO; Second Hand Exposure: No; Do You Dip or Chew Tobacco: No; Tobacco Cessation Education Requested by Patient: No Hx Alcohol Use: Yes Alcohol type: wine Alcohol Intake Frequency: Monthly or Less Hx Substance Use: No Preferred Language: Armenian Communication Ability: Effective Visual Impairment: No Limitations High Wire Artist Required: No Beliefs That Will Affect Care: None marital status: Current Living Situation: Significant Other Current Living Situation Comment: lives in 2 story home with significant other current occupational status: unemployed How many Children do You have: 2 Other Information That Helps Us Care for You: No Feels Safe at Home: Yes Safety Concerns: Feels Safe At This Time Diet: Atkins during the past year weight has: decreased > 10 lbs Assistive Devices: None Allergies Allergies Allergy/AdvReac Type Severity Reaction Status Date / Time doxycycline AdvReac Unknown CAN'T Verified 01/07/22 07:02 FUNCTION, CAN'T TALK Home Meds Home Medications Medication Instructions Recorded Confirmed Bone Broth 2 cap PO QAM 05/06/20 01/07/22 Moringa 1 cap PO QAM 05/06/20 01/07/22 Turmeric Powder 1 dose PO QAM 05/06/20 12/31/21 alfalfa 650 mg tablet 650 mg PO QAM 05/06/20 01/07/22 alprazolam 0.5 mg tablet (Xanax) 0.5 mg PO BID PRN Anxiety 05/06/20 01/07/22 ascorbic acid (vitamin C) 1,000 mg 1 cap PO QAM 05/06/20 01/07/22 capsule,extended release ascorbic acid 125 mg-collagen, 1 cap PO QAM 05/06/20 01/07/22 hydrolyzed 740 mg capsule (Collagen Plus Vitamin C) Adrenal Tincture Otc 1 dose PO UD 07/10/21 01/07/22 Hair Plus Tincture Otc 1 dose PO QAM 07/10/21 01/07/22 Kidney Tincture Otc 1 dose PO QAM 07/10/21 01/07/22 Liver Gall Bladder Tincture Otc 1 dose PO QAM 07/10/21 01/07/22 Lymphatic Tincture Otc 1 dose PO QAM 07/10/21 01/07/22 Multi Collagen Otc 2 tab PO QAM 07/10/21 01/07/22 Plant Calcium Otc 2 tab PO QAM 07/10/21 01/07/22 [id number] [id number] 1 cap PO QAM 07/10/21 01/07/22 oil 350 mg- 400 mg capsule Previous Rx's Medication Instructions Recorded diclofenac sodium 75 mg 75 mg PO BID Postoperative pain 08/07/21 tablet,delayed release and inflammation relief 30 days #60 tabs oxycodone 5 mg tablet 5 - 10 mg PO .[id number] PRN pain, 01/07/22 for initial therapy, max 6 tabs per day #5 tabs Results & Data (ED) Vital Signs Vital Signs - 24 hr 08/15/22 16:35 08/15/22 16:35 08/15/22 16:37 Temperature 36.6 C Temperature Source Oral Pulse Rate 90 92 H Pulse Rate [Apical] Pulse Rate from SpO2 Sensor 95 H Pulse Rhythm [Apical] Respiratory Rate 16 26 H Respiratory Effort / Characteristics Non-Labored Spontaneous Respiratory Depth Normal Respiratory Pattern Regular Blood Pressure 161/81 H Blood Pressure [Left Arm] Blood Pressure Mean 107 Blood Pressure Mean [Left Arm] Pulse Oximetry 100 100 97 Oxygen Delivery Method Room Air Room Air Oxygen Flow Rate Sepsis Recent Fever Within 48 Hours No Sepsis New/Unexplained Change in Mental Status N/A Sepsis Action Taken by Nursing No Action Required 08/15/22 16:40 08/15/22 16:50 08/15/22 17:00 Temperature Temperature Source Pulse Rate 92 H 93 H Pulse Rate [Apical] Pulse Rate from SpO2 Sensor 93 H 92 H Pulse Rhythm [Apical] Respiratory Rate 15 10 L Respiratory Effort / Characteristics Respiratory Depth Respiratory Pattern Blood Pressure 170/89 H Blood Pressure [Left Arm] Blood Pressure Mean 133 Blood Pressure Mean [Left Arm] Pulse Oximetry 97 96 Oxygen Delivery Method Oxygen Flow Rate Sepsis Recent Fever Within 48 Hours Sepsis New/Unexplained Change in Mental Status Sepsis Action Taken by Nursing 08/15/22 17:00 08/15/22 17:10 08/15/22 17:20 Temperature Temperature Source Pulse Rate 83 85 92 H Pulse Rate [Apical] Pulse Rate from SpO2 Sensor 83 86 92 H Pulse Rhythm [Apical] Respiratory Rate 15 17 25 H Respiratory Effort / Characteristics Respiratory Depth Respiratory Pattern Blood Pressure Blood Pressure [Left Arm] Blood Pressure Mean Blood Pressure Mean [Left Arm] Pulse Oximetry 97 99 96 Oxygen Delivery Method Oxygen Flow Rate Sepsis Recent Fever Within 48 Hours Sepsis New/Unexplained Change in Mental Status Sepsis Action Taken by Nursing 08/15/22 17:30 08/15/22 17:40 08/15/22 17:50 Temperature Temperature Source Pulse Rate 83 86 85 Pulse Rate [Apical] Pulse Rate from SpO2 Sensor 84 87 85 Pulse Rhythm [Apical] Respiratory Rate 14 18 14 Respiratory Effort / Characteristics Respiratory Depth Respiratory Pattern Blood Pressure Blood Pressure [Left Arm] Blood Pressure Mean Blood Pressure Mean [Left Arm] Pulse Oximetry 97 98 95 Oxygen Delivery Method Oxygen Flow Rate Sepsis Recent Fever Within 48 Hours Sepsis New/Unexplained Change in Mental Status Sepsis Action Taken by Nursing 08/15/22 18:00 08/15/22 18:00 08/15/22 18:10 Temperature Temperature Source Pulse Rate 81 79 Pulse Rate [Apical] Pulse Rate from SpO2 Sensor 79 80 Pulse Rhythm [Apical] Respiratory Rate 21 15 Respiratory Effort / Characteristics Respiratory Depth Respiratory Pattern Blood Pressure 142/82 H Blood Pressure [Left Arm] Blood Pressure Mean 97 Blood Pressure Mean [Left Arm] Pulse Oximetry 97 97 Oxygen Delivery Method Oxygen Flow Rate Sepsis Recent Fever Within 48 Hours Sepsis New/Unexplained Change in Mental Status Sepsis Action Taken by Nursing 08/15/22 18:20 08/15/22 18:30 08/15/22 18:40 Temperature Temperature Source Pulse Rate 82 79 75 Pulse Rate [Apical] Pulse Rate from SpO2 Sensor 81 78 76 Pulse Rhythm [Apical] Respiratory Rate 28 H 10 L 14 Respiratory Effort / Characteristics Respiratory Depth Respiratory Pattern Blood Pressure Blood Pressure [Left Arm] Blood Pressure Mean Blood Pressure Mean [Left Arm] Pulse Oximetry 94 97 96 Oxygen Delivery Method Room Air Oxygen Flow Rate Sepsis Recent Fever Within 48 Hours Sepsis New/Unexplained Change in Mental Status Sepsis Action Taken by Nursing 08/15/22 18:50 08/15/22 19:00 08/15/22 19:00 Temperature Temperature Source Pulse Rate 78 81 Pulse Rate [Apical] Pulse Rate from SpO2 Sensor 80 77 Pulse Rhythm [Apical] Respiratory Rate 16 20 Respiratory Effort / Characteristics Respiratory Depth Respiratory Pattern Blood Pressure 137/84 Blood Pressure [Left Arm] Blood Pressure Mean 97 Blood Pressure Mean [Left Arm] Pulse Oximetry 97 95 Oxygen Delivery Method Oxygen Flow Rate Sepsis Recent Fever Within 48 Hours Sepsis New/Unexplained Change in Mental Status Sepsis Action Taken by Nursing 08/15/22 19:10 08/15/22 19:17 08/15/22 19:17 Temperature Temperature Source Pulse Rate 84 103 H Pulse Rate [Apical] Pulse Rate from SpO2 Sensor 85 104 H Pulse Rhythm [Apical] Respiratory Rate 15 24 Respiratory Effort / Characteristics Respiratory Depth Respiratory Pattern Blood Pressure 173/91 H Blood Pressure [Left Arm] Blood Pressure Mean 135 Blood Pressure Mean [Left Arm] Pulse Oximetry 98 97 Oxygen Delivery Method Oxygen Flow Rate Sepsis Recent Fever Within 48 Hours Sepsis New/Unexplained Change in Mental Status Sepsis Action Taken by Nursing 08/15/22 19:20 08/15/22 20:43 Temperature 36.5 C Temperature Source Temporal Artery Scan Pulse Rate 88 Pulse Rate [Apical] 79 Pulse Rate from SpO2 Sensor 88 Pulse Rhythm [Apical] Regular Respiratory Rate 16 13 Respiratory Effort / Characteristics Non-Labored Respiratory Depth Normal Respiratory Pattern Regular Blood Pressure Blood Pressure [Left Arm] 134/82 Blood Pressure Mean Blood Pressure Mean [Left Arm] 99 Pulse Oximetry 98 99 Oxygen Delivery Method Oxymask Oxygen Flow Rate 4 Sepsis Recent Fever Within 48 Hours Sepsis New/Unexplained Change in Mental Status Sepsis Action Taken by Longterm Medications Current Medication List: was personally reviewed by me Laboratory Data Attestation: I reviewed the patient's lab results. 08/15/22 16:33 08/15/22 16:33 Lab Results 08/15/22 08/15/22 08/15/22 Range/Units 16:33 16:33 17:29 WBC 3.42 L (4.8-10.8) K/ul RBC 4.29 (4.20-5.40) M/uL Hgb 14.6 (12.0-16.0) g/dl Hct 41.6 (37.0-47.0) % MCV 97.0 (80.0-100.0) fL MCH 34.0 (25.0-34.0) pg MCHC 35.1 (32.0-36.0) g/dL RDW Std Deviation 46.1 (36.4-46.3) fL RDW Coeff of Thomas 13.0 (11.5-14.5) % Plt Count 222 (130-400) K/uL MPV 9.2 L (9.4-12.4) fL Sodium 139 (136-145) mmol/L Potassium 3.7 (3.5-5.1) mmol/L Chloride 104 (98-107) mmol/L Carbon Dioxide 27 (21-32) mmol/L Anion Gap 8 (3-11) BUN 16 (6-23) mg/dl Creatinine 0.73 (0.6-1.2) mg/dl Est Cr Clr Drug Dosing 70.8 ml/min Est GFR ( Amer) 101.6 ml/min Est GFR (Non-Af Amer) 87.7 ml/min BUN/Creatinine Ratio 21.9 H (10-20) Glucose 118 H (70-99(Fasting)) mg/dl Calcium 10.2 (8.6-10.3) mg/dl SARS-CoV-2, RNA, NAAT NEGATIVE (NEGATIVE) Administered Medications Docusate Sodium (Docusate Sodium 100 Mg Cap) 100 mg PO BID SHANNAN Stop: 09/14/22 21:27 Last Admin: 08/15/22 22:31 Dose: 100 mg Documented By: OLIVIA Hydromorphone HCl (Hydromorphone Inj 0.5 Mg/0.5 Ml Syr) 0.5 mg IV Q15M PRN PRN Reason: Pain Stop: 08/29/22 16:30 Last Admin: 08/15/22 19:19 Dose: 0.5 mg Documented By: Admin: 08/15/22 18:08 Dose: 0.5 mg Documented By: Admin: 08/15/22 17:36 Dose: 0.5 mg Documented By: YULIANA Sodium Chloride (Nss 1000ml) 1,000 mls @ 100 mls/hr IV .Q10H SHANNAN Stop: 08/16/22 06:00 Last Admin: 08/15/22 21:38 Dose: 100 mls/hr Documented By: OLIVIA Oxycodone HCl (Oxycodone Hcl Ir 5 Mg Tab (Immediate Release)) 5 - 10 mg PO Q4H PRN PRN Reason: Pain or Pre PT Stop: 08/29/22 21:27 Last Admin: 08/15/22 22:32 Dose: 10 mg Documented By: OLIVIA Sennosides (Senna 8.6 Mg Tab) 17.2 mg PO HS SHANNAN Stop: 09/14/22 21:27 Last Admin: 08/15/22 22:31 Dose: 17.2 mg Documented By: OLIVIA Discontinued Medications Hydromorphone HCl (Hydromorphone Inj 1 Mg/Ml Syringe) 1 mg IV NOW STA Stop: 08/15/22 16:32 Last Admin: 08/15/22 16:44 Dose: 1 mg Documented By: JAI Sodium Chloride (Nss 1000ml) 500 mls @ 999 mls/hr IV .Q31M ONE Stop: 08/15/22 17:01 Last Infusion: 08/15/22 18:19 Dose: 0 mls/hr Documented By: Admin: 08/15/22 16:45 Dose: 999 mls/hr Documented By: JAI Ondansetron HCl (Ondansetron Inj 2 Mg/Ml 2 Ml Vial) 4 mg IV NOW STA Stop: 08/15/22 16:32 Last Admin: 08/15/22 16:45 Dose: 4 mg Documented By: JAI Imaging Data Radiologist's Impression: Hip/Pelvis X-Ray 08/15/22 16:31 XR hip RT 2V w pelvis CLINICAL HISTORY: poss dislocation TECHNIQUE: 2 views of the right hip and single frontal view of the pelvis were obtained. Comparison: Comparison is made to right hip radiograph 05/07/2022 FINDINGS: There is a dislocation of the right hip. Right hip arthroplasty hardware is without fracture. No soft tissue abnormality is seen. IMPRESSION: Right hip dislocation is seen. ACT 112: Negative or not required by law. Electronically signed by: Shamar Love M.D. 08/15/2022 5:11 PM Discharge Plan Visit Data Chief Complaint: Hip Pain Stated Complaint: HIP PAIN ED Provider: Alex Loving Discharge Problem: Acute right hip pain, Dislocation of right hip Patient Disposition: Still a Patient Condition: Good Discharge Instructions Interventions: ED Discharge Assessment Last Done: 08/15/22 19:50
[2022-08-15 17:05] LABS: BUN Creatinine Ratio 21.9 (10-20); Calcium 10.2 mg/dl (8.6-10.3); Creatinine Clr Calc Pharmacy 70.8 ml/min; Est GFR (African American) 101.6 ml/min; Est GFR (Non-African American) 87.7 ml/min; Potassium 3.7 mmol/L (3.5-5.1)
--- NOTE | 2022-08-15 17:13 | XRay Report ---
XR hip RT 2V w pelvis CLINICAL HISTORY: poss dislocation TECHNIQUE: 2 views of the right hip and single frontal view of the pelvis were obtained. Comparison: Comparison is made to right hip radiograph 05/07/2022 FINDINGS: There is a dislocation of the right hip. Right hip arthroplasty hardware is without fracture. No soft tissue abnormality is seen. IMPRESSION: Right hip dislocation is seen. ACT 112: Negative or not required by law. Electronically signed by: Shamar Love M.D. 08/15/2022 5:11 PM
[2022-08-15] MEDS: HYDROmorphone INJ 0.5 MG/0.5 ML SYR IV PRN ×3 (17:36→19:19)
--- NOTE | 2022-08-15 19:38 | History & Physical Report ---
Date of Service August 15, 2022 Assessment & Plan (1) Dislocation of hip joint prosthesis: Plan: Radiographs are reviewed and shows a posterior superior dislocation of the right hip. Components look to be intact and there is no evidence of fracture or other complication. I recommend close reduction. She last ate at 2:00. She is cleared to go at 8 PM by anesthesia over in the OR. She is educated about the procedure. We talked about risks benefits and recovery. Informed consent was obtained. She does not need any preop antibiotics. History of Present Illness Primary Care Provider: Gabriel Bowers MD Janet is 1 year status post a right total hip arthroplasty by Dr. Shauna scehrer. She was in the shower shaving. She put her foot up on a bench but her knee rotated inward and her hip popped out of place. She has had no problems with the hip since surgery and complains of right hip pain. Allergies Allergy/AdvReac Type Severity Reaction Status Date / Time doxycycline AdvReac Unknown CAN'T Verified 01/07/22 07:02 FUNCTION, CAN'T TALK Home Medications Medication Instructions Recorded Confirmed Type Bone Broth 2 cap PO QAM 05/06/20 01/07/22 History Moringa 1 cap PO QAM 05/06/20 01/07/22 History Turmeric Powder 1 dose PO QAM 05/06/20 12/31/21 History alfalfa 650 mg tablet 650 mg PO QAM 05/06/20 01/07/22 History alprazolam 0.5 mg tablet (Xanax) 0.5 mg PO BID PRN Anxiety 05/06/20 01/07/22 History ascorbic acid (vitamin C) 1,000 mg 1 cap PO QAM 05/06/20 01/07/22 History capsule,extended release ascorbic acid 125 mg-collagen, 1 cap PO QAM 05/06/20 01/07/22 History hydrolyzed 740 mg capsule (Collagen Plus Vitamin C) Adrenal Tincture Otc 1 dose PO UD 07/10/21 01/07/22 History Hair Plus Tincture Otc 1 dose PO QAM 07/10/21 01/07/22 History Kidney Tincture Otc 1 dose PO QAM 07/10/21 01/07/22 History Liver Gall Bladder Tincture Otc 1 dose PO QAM 07/10/21 01/07/22 History Lymphatic Tincture Otc 1 dose PO QAM 07/10/21 01/07/22 History Multi Collagen Otc 2 tab PO QAM 07/10/21 01/07/22 History Plant Calcium Otc 2 tab PO QAM 07/10/21 01/07/22 History -vcg-dsg-other [id number] 1 cap PO QAM 07/10/21 01/07/22 History oil 350 mg- 400 mg capsule diclofenac sodium 75 mg 75 mg PO BID Postoperative pain 08/07/21 01/07/22 Rx tablet,delayed release and inflammation relief 30 days #60 tabs oxycodone 5 mg tablet 5 - 10 mg PO .[id number] PRN pain, 01/07/22 Rx for initial therapy, max 6 tabs per day #5 tabs Past Med/Surg History Medical History (Updated 08/15/22 @ 19:37 by Henrry Kevin MD) Anxiety and depression Blood clot in vein 20+ years ago Right calf () Heart palpitations Rare occurrences x years History of COVID-19 Early 10/2021, runny nose, DUMONT > resolved History of restless legs syndrome with Lyme disease Hx of Lyme disease Leukopenia Chronic, PCP aware/monitoring Lipoma of arm Post traumatic stress disorder Surgical History (Updated 01/08/22 @ 10:17 by Margoth Liu RN) H/O excision of mass Left upper arm by a [employer] [facility] Dr. Dany Dumont Lipoma H/O eye surgery LEFT EYE TITANIUM SHELF PLACED AFTER "CRACKING ORBIT" H/O foot surgery LEFT History of arthroscopy of right shoulder 05/10/20: Grade 2 view, MAC 3 ETT 7.5 + PNB. No postop issues per anesthesia progress note. History of cholecystectomy History of colonoscopy History of esophagogastroduodenoscopy (EGD) History of hemorrhoidectomy History of hysterectomy History of total right hip replacement 08/2021 mn Hx of gynecological procedure VAGINAL RECONSTRUCTION AND BLADDER TACK/MESH Nausea and vomiting after administration of anesthetic agent "ALWAYS GETS MEDICATED TO PREVENT" S/P excision of lipoma (01/07/22) Excision Recurrent Lipoma Left Upper Extremity(Left) 6 cm x 3 cm - Ashok Carter MD, FACS Family History Aunt Family history of diabetes mellitus Other No family history of adverse response to anesthesia Social History Smoking Status: Current every day smoker Tobacco Type: Cigarettes Cigarettes Per Day: 5 CIGS A WEEK-NPO; Second Hand Exposure: No; Do You Dip or Chew Tobacco: No; Hx Alcohol Use: Yes ("once in a while") Alcohol type: hard liquor Alcohol Intake Frequency: Monthly or Less Hx Substance Use: No Preferred Language: Yi Communication Ability: Effective Visual Impairment: No Limitations Real Estate Recruiter Required: No Beliefs That Will Affect Care: None marital status: Current Living Situation: Significant Other current occupational status: unemployed How many Children do You have: 2 Feels Safe at Home: Yes Diet: Atkins during the past year weight has: decreased > 10 lbs Assistive Devices: Glasses Review of Systems Review of Systems: Her health history is noted and reviewed. No problems with bleeding. She has a remote history of blood clot. No cancers or significant heart disease or diabetes. Physical Exam Physical Exam: She is laying on the hospital stretcher. Her right leg is shortened and internally rotated. She has 5 out of 5 ankle and toe plantarflexion dorsiflexion and eversion strength. She has intact sensation to light touch and 1+ DP and PT pulses she is awake alert and oriented. The right hip is painful with any movement there is no tenderness to palpation of the lower thigh knee leg or ankle. Results & Data Results & Data Vital Signs (Past 12 Hours) Vital Signs Temp Pulse Resp BP Pulse Ox O2 Del Method 08/15/22 19:20 88 16 98 08/15/22 19:17 173/91 H 08/15/22 19:17 103 H 24 97 08/15/22 19:10 84 15 98 08/15/22 19:00 81 20 95 08/15/22 19:00 137/84 08/15/22 18:50 78 16 97 08/15/22 18:40 75 14 96 08/15/22 18:30 79 10 L 97 Room Air 08/15/22 18:20 82 28 H 94 08/15/22 18:10 79 15 97 08/15/22 18:00 81 21 97 08/15/22 18:00 142/82 H 08/15/22 17:50 85 14 95 08/15/22 17:40 86 18 98 08/15/22 17:30 83 14 97 08/15/22 17:20 92 H 25 H 96 08/15/22 17:10 85 17 99 08/15/22 17:00 83 15 97 08/15/22 17:00 170/89 H 08/15/22 16:50 93 H 10 L 96 08/15/22 16:40 92 H 15 97 08/15/22 16:37 92 H 26 H 97 08/15/22 16:35 100 Room Air 08/15/22 16:35 36.6 C 90 16 161/81 H 100 Room Air
[2022-08-15] MEDS ORDERED: fentaNYL citrate PF 100 MCG/2 ML VIAL IV PRN (20:12)
[2022-08-15] MEDS ORDERED: ONDANSETRON INJ 2 MG/ML 2 ML VIAL IV PRN ×2 (20:12→21:28)
[2022-08-15] MEDS ORDERED: PROMETHAZINE HCL 6.25 MG in SODIUM CHLORIDE 0.9% 50 ML IV PRN (20:12)
[2022-08-15] MEDS ORDERED: ePHEDrine sulfate 50 MG/ML AMP IV PRN (20:12)
[2022-08-15] MEDS ORDERED: ATROPINE SULFATE 0.1 MG/ML 10ML SYR IV PRN (20:12)
--- NOTE | 2022-08-15 20:12 | Anesthesiology Consultation ---
Date of Service August 15, 2022 Assessment & Plan Chart Review Chart Review: Acceptable Risk for Surgery and Patient NOT seen in Pre Admission Testing Consults Requested none ASA [id number] Proposed Anesthesia Anesthesia Type: General Risk / Benefits Reviewed With: PT / POA / Parent / Guardian, Accepts Plan and Informed Consent Obtained History Surgery Operation Date: 08/15/22 19:35 Proposed Procedures p Closed Reduction Extremity - Henrry Kevin MD Height/Weight Height: 5 ft 3 in Weight: 63.5 kg Allergies Allergy/AdvReac Type Severity Reaction Status Date / Time doxycycline AdvReac Unknown CAN'T Verified 01/07/22 07:02 FUNCTION, CAN'T TALK Medications Home Medications Medication Instructions Recorded Confirmed Last Taken Bone Broth 2 cap PO QAM 05/06/20 01/07/22 12/30/21 [place] 1 cap PO QAM 05/06/20 01/07/22 12/30/21 Turmeric Powder 1 dose PO QAM 05/06/20 12/31/21 05/09/20 10:00 alfalfa 650 mg tablet 650 mg PO QAM 05/06/20 01/07/22 12/30/21 alprazolam 0.5 mg tablet (Xanax) 0.5 mg PO BID PRN Anxiety 05/06/20 01/07/22 01/06/22 22:00 ascorbic acid (vitamin C) 1,000 mg 1 cap PO QAM 05/06/20 01/07/22 12/30/21 capsule,extended release ascorbic acid 125 mg-collagen, 1 cap PO QAM 05/06/20 01/07/22 12/30/21 hydrolyzed 740 mg capsule (Collagen Plus Vitamin C) Adrenal Tincture Otc 1 dose PO UD 07/10/21 01/07/22 12/30/21 Hair Plus Tincture Otc 1 dose PO QAM 07/10/21 01/07/22 12/30/21 Kidney Tincture Otc 1 dose PO QAM 07/10/21 01/07/22 12/30/21 Liver Gall Bladder Tincture Otc 1 dose PO QAM 07/10/21 01/07/22 12/30/21 Lymphatic Tincture Otc 1 dose PO QAM 07/10/21 01/07/22 12/30/21 Multi Collagen Otc 2 tab PO QAM 07/10/21 01/07/22 12/30/21 Plant Calcium Otc 2 tab PO QAM 07/10/21 01/07/22 12/30/21 -sek-xel-other [id number] 1 cap PO QAM 07/10/21 01/07/22 12/30/21 oil 350 mg- 400 mg capsule diclofenac sodium 75 mg 75 mg PO BID Postoperative pain 08/07/21 01/07/22 Unknown tablet,delayed release and inflammation relief 30 days #60 tabs oxycodone 5 mg tablet 5 - 10 mg PO .[id number] PRN pain, 01/07/22 Unknown for initial therapy, max 6 tabs per day #5 tabs Active Medications Generic Name Dose Route Start Last Admin Trade Name Freq PRN Reason Stop Dose Admin Hydromorphone HCl 0.5 mg 08/15/22 16:31 08/15/22 19:19 Hydromorphone Inj 0.5 Mg/0.5 Ml Syr IV 08/29/22 16:30 0.5 mg Q15M PRN Administration Pain Past Medical History Medical History (Updated 08/15/22 @ 19:37 by Henrry Kevin MD) Anxiety and depression Blood clot in vein 20+ years ago Right calf () Heart palpitations Rare occurrences x years History of COVID-19 Early 10/2021, runny nose, DUMONT > resolved History of restless legs syndrome with Lyme disease Hx of Lyme disease Leukopenia Chronic, PCP aware/monitoring Lipoma of arm Post traumatic stress disorder Exercise / Class Metabolic Activity II 4-5 Yardwork/Stairs/Walk up hill Past Family History Family History Aunt Family history of diabetes mellitus Other No family history of adverse response to anesthesia Past Surgical History Surgical History (Updated 01/08/22 @ 10:17 by Margoth Liu RN) H/O excision of mass Left upper arm by a Pigment [employer] [facility] Dr. Dany Dumont Lipoma H/O eye surgery LEFT EYE TITANIUM SHELF PLACED AFTER "CRACKING ORBIT" H/O foot surgery LEFT History of arthroscopy of right shoulder 05/10/20: Grade 2 view, MAC 3 ETT 7.5 + PNB. No postop issues per anesthesia progress note. History of cholecystectomy History of colonoscopy History of esophagogastroduodenoscopy (EGD) History of hemorrhoidectomy History of hysterectomy History of total right hip replacement 08/2021 mn Hx of gynecological procedure VAGINAL RECONSTRUCTION AND BLADDER TACK/MESH Nausea and vomiting after administration of anesthetic agent "ALWAYS GETS MEDICATED TO PREVENT" S/P excision of lipoma (01/07/22) Excision Recurrent Lipoma Left Upper Extremity(Left) 6 cm x 3 cm - Ashok Carter MD, [facility] Past Anesthesia History No Hx of Anesthesia Complications and No Family Hx of Anesthesia Complications History of PONV No Hx of PONV and No Hx of Motion Sickness Social History Smoking Status: Current every day smoker tobacco type: cigarettes Smoking cigarettes per day: 5 CIGS A WEEK-NPO Do You Dip or Chew Tobacco: No Hx Alcohol Use: Yes ("once in a while") Alcohol type: hard liquor alcohol intake frequency: a few times a month Hx Substance Use: No substance use type: does not use Physical Exam Vital Signs Last Vital Signs Temp 36.6 C 08/15/22 16:35 Pulse 88 08/15/22 19:20 Resp 16 08/15/22 19:20 BP 173/91 H 08/15/22 19:17 Pulse Ox 98 08/15/22 19:20 O2 Del Method Room Air 08/15/22 18:30 ENMT Mouth: no dentition abnormality Thyromental Distance: > or= 3.5 Finger Breadths Mallampati Class: II Neck normal visual inspection Respiratory normal respiratory effort Auscultation: lungs clear to auscultation bilaterally Cardiovascular Rate/Rhythm: regular rate and regular rhythm Psychiatric Orientation: alert Testing Laboratory Results 08/15/22 16:33 08/15/22 16:33
[2022-08-15] MEDS ORDERED: fentaNYL citrate PF 100 MCG/2 ML VIAL ONE (20:16)
[2022-08-15] MEDS ORDERED: PROPOFOL IV EMULSION 10 MG/ML 20 ML VIAL IV ONE (20:37)
[2022-08-15] MEDS ORDERED: LIDOCAINE 2% 2 ML VIAL/AMP(20MG/ML) INFIL ONE (20:37)
[2022-08-15] MEDS ORDERED: ONDANSETRON INJ 2 MG/ML 2 ML VIAL ONE (20:37)
--- NOTE | 2022-08-15 20:43 | Operative Report ---
Post Operative Report Pre & Post Diagnosis Operation Date: 08/15/22 19:35 Pre-Op Diagnosis: Dislocation of hip joint prosthesis Post-Op Diagnosis: Dislocation of hip joint prosthesis I identified the patient and participated in the time-out.: Yes Procedure Operation Date: 08/15/22 19:35 Actual Procedures p Closed Reduction Right Hip - Henrry Kevin MD Surgeon Henrry Kevin MD [employer] none Estimated Blood Loss 0 Findings Consistent with Post-Op Diagnosis Specimens none Anesthesia Type MAC Complications none Disposition Accompanied Patient To Recovery: No Disposition: Recovery Room Indications Janet is 62. 1 year status post a right total hip replacement. Her hip dislocated today in the shower. Description of Procedure Informed consent obtained. Patient identified. She identified the procedure site as the right hip. I marked with my initials. Preop antibiotics were not indicated. She was taken to the OR positioned supine on the OR table. The anesthesia was administered. I then used the 90 degrees of hip flexion and knee flexion with longitudinal traction standing over the table. Did not reduce initially with this position. Reduced well with more extreme internal rotation and some abduction and hip flexion to about 100 degrees. Postreduction imaging was obtained showing a concentric reduction and no evidence of complication such as fracture. She was placed into a hip abduction pillow awakened from anesthesia and taken to recovery in stable condition. There were no specimens or complications. No counts. No blood loss. At the conclusion of the operation spoke to her significant other and discussed my findings and recommendations. I attest to the content of the Intraoperative Record and any orders documented therein. Any exceptions are noted below.
--- NOTE | 2022-08-15 21:05 | Anesthesiology Progress Note ---
Date of Service August 15, 2022 Anesthesia Post Procedure Vital Signs Vital Signs: Temp Pulse Pulse Resp BP BP Pulse Ox 08/15/22 21:00 78 16 147/88 H 97 08/15/22 20:50 76 14 134/75 99 08/15/22 20:43 36.5 C 79 13 134/82 99 08/15/22 19:20 88 16 98 08/15/22 19:17 173/91 H 08/15/22 19:17 103 H 24 97 08/15/22 19:10 84 15 98 08/15/22 19:00 81 20 95 08/15/22 19:00 137/84 08/15/22 18:50 78 16 97 08/15/22 18:40 75 14 96 08/15/22 18:30 79 10 L 97 08/15/22 18:20 82 28 H 94 08/15/22 18:10 79 15 97 08/15/22 18:00 81 21 97 08/15/22 18:00 142/82 H 08/15/22 17:50 85 14 95 08/15/22 17:40 86 18 98 08/15/22 17:30 83 14 97 08/15/22 17:20 92 H 25 H 96 08/15/22 17:10 85 17 99 08/15/22 17:00 83 15 97 08/15/22 17:00 170/89 H 08/15/22 16:50 93 H 10 L 96 08/15/22 16:40 92 H 15 97 08/15/22 16:37 92 H 26 H 97 08/15/22 16:35 100 08/15/22 16:35 36.6 C 90 16 161/81 H 100 O2 Del Method O2 Flow Rate 08/15/22 21:00 Room Air 08/15/22 20:50 Oxymask 4 08/15/22 20:43 Oxymask 4 08/15/22 19:20 08/15/22 19:17 08/15/22 19:17 08/15/22 19:10 08/15/22 19:00 08/15/22 19:00 08/15/22 18:50 08/15/22 18:40 08/15/22 18:30 Room Air 08/15/22 18:20 08/15/22 18:10 08/15/22 18:00 08/15/22 18:00 08/15/22 17:50 08/15/22 17:40 08/15/22 17:30 08/15/22 17:20 08/15/22 17:10 08/15/22 17:00 08/15/22 17:00 08/15/22 16:50 08/15/22 16:40 08/15/22 16:37 08/15/22 16:35 Room Air 08/15/22 16:35 Room Air Pain Intensity Right Hip: Pain Intensity: 4 Transfer of Care Handoff Completed per policy Notes Mental Status: alert / awake / arousable Patient Amnestic to Procedure: Yes Nausea / Vomiting: adequately controlled Pain: adequately controlled Airway Patency, RR, SpO2: stable & adequate BP & HR: stable & adequate Hydration State: stable & adequate Anesthetic Complications: no major complications apparent
[2022-08-15] MEDS ORDERED: diphenhydrAMINE Capsule 25 MG CAP PO PRN (21:28)
[2022-08-15] MEDS ORDERED: ALPRAZolam 0.5 MG TABLET PO PRN (21:28)
[2022-08-15] MEDS ORDERED: SODIUM CHLORIDE 0.9% 1000ML 1,000 ML IV SCH (21:28)
[2022-08-15] MEDS ORDERED: traMADol HCL 50 MG TABLET PO PRN (21:28)
[2022-08-15] MEDS ORDERED: METOCLOPRAMIDE HCL INJ 5 MG/ML 2 ML VIAL IV PRN (21:28)
[2022-08-15] MEDS ORDERED: SENNA 8.6 MG TAB PO SCH (21:28)
[2022-08-15] MEDS ORDERED: ACETAMINOPHEN 500 MG TAB PO PRN (21:28)
[2022-08-15] MEDS ORDERED: NALOXONE HCL 0.4 MG/1 ML VIAL/CARP IV PRN (21:28)
[2022-08-15] MEDS ORDERED: KETOROLAC 30 MG/ML VIAL IV PRN (21:28)
[2022-08-15] MEDS ORDERED: MAGNESIUM HYDROXIDE SUSP 30 ML UDC PO PRN (21:28)
[2022-08-15] MEDS ORDERED: bisacodyL 10 MG SUPP PR PRN (21:28)
[2022-08-15] MEDS ORDERED: ALUMINUM/MAGNESIUM SUSP 30 ML UDC PO PRN (21:28)
[2022-08-15] MEDS: DOCUSATE SODIUM 100 MG CAP PO SCH (22:31)
[2022-08-15] MEDS: oxyCODONE HCL IR 5 MG TAB (IMMEDIATE RELEASE) PO PRN (22:32)
[2022-08-16] MEDS: oxyCODONE HCL IR 5 MG TAB (IMMEDIATE RELEASE) PO PRN (04:56)
--- NOTE | 2022-08-16 07:51 | Fluoroscopy Report ---
FL hip RT 2-3V CLINICAL HISTORY: CLOSED REDUCTION RIGHT HIP TECHNIQUE: 7 views were obtained with the C-arm in the OR with the above procedure. Total fluoroscopy time was 12.7 seconds. Radiation dose was 3.2 mGy. Comparison: Comparison is made to right hip radiograph 08/15/2022 FINDINGS/IMPRESSION: Intraoperative images were obtained of the closed reduction of right hip disloca tion. Please correlate with intraoperative fluoroscopy and operative report. ACT 112: Negative or not required by law. Electronically signed by: Shamar Love M.D. 08/16/2022 7:49 AM
[2022-08-16] MEDS: DOCUSATE SODIUM 100 MG CAP PO SCH (07:54)
--- NOTE | 2022-08-16 09:12 | Orthopedic Progress Note ---
Date of Service August 16, 2022 Assessment & Plan (1) Dislocation of hip joint prosthesis: Plan: Patient was placed into a T scope brace this morning. We reviewed her Hip precautions. She can expect to have some soreness in her hip for the next several weeks. However she is safe to weight-bear as tolerated in the brace. No driving for minimum 1 week. She will work with physical therapy this morning. She should use a walker for at least the next several days. Follow-up in clinic with Swapna in 2 to 3 weeks with x-rays.May discharge home today if she passes physical therapy. No DVT prophylaxis is required. [id number] medications for pain control. Admission and Anticipated Discharge Date Admission Date: August 15, 2022 Subjective Subjective: Patient seen and examined on a.m. rounds with Zaheer Gillespie PA-C. Patient did reasonably well overnight. She has some soreness in her hip but is controlled with oral medication. She feels like she has to drag her leg forward when she is walking. Mostly she is just scared because she felt like she was using her hip normally when it dislocated. Physical Exam Physical Exam: Right hip exam reveals her incision to be well-healed. There is no bruising or skin lesions. She is distally neurovascularly intact. Results & Data Vital Signs (Past 12 Hours) Vital Signs Temp Pulse Pulse Resp BP Pulse Ox O2 Del Method 08/16/22 07:41 36.7 C 64 12 164/88 H 99 Room Air 08/16/22 02:56 36.3 C L 66 16 145/87 H 98 Room Air 08/15/22 23:58 36.8 C 71 18 137/85 97 Room Air 08/15/22 22:13 36.4 C L 74 16 127/77 93 Room Air 08/15/22 21:15 36.9 C 76 18 136/81 97 Room Air 08/15/22 21:40 36.7 C 76 18 129/87 98 Room Air 08/15/22 21:15 36.9 C 72 16 136/81 98 Room Air 08/15/22 21:10 36.6 C 72 20 132/78 97 Room Air Diagnostic Findings Fluoroscopic images obtained in the operating room showed no evidence of fracture. The hip is been concentrically reduced.
--- NOTE | 2022-08-18 12:16 | Discharge Summary ---
Date of Service August 18, 2022 Admission HPI Per Admitting Provider This 62-year-old female is 1 year status post a right total hip arthroplasty by Dr. Barcenas. She was in the shower shaving. She put her foot up on a bench but her knee rotated inward and her hip popped out of place. She has had no problems with the hip since surgery and currently complained of right hip pain. She was brought to the ED by EMS and reduction was attempted in the ER. It was unsuccessful. Because of this, she was taken to the operating room for successful closed reduction. She has had no further issues since reduction. Admission Exam (Per Admitting) Constitutional Well-developed, well-nourished, middle-aged female, in no acute distress. Laying in bed. Alert and oriented. Conversive. Musculoskeletal Right hip has supple motion for flexion as well as rotation. She describes soreness with palpation around the hip. Intact motor function of the hip, knee, and ankle. She has been ambulatory using a walker. Skin Warm and dry with good turgor. No rashes or lesions. No ecchymosis or edema. Neurologic Gross sensation is intact across both lower extremities by soft touch. Specialty Data Orthopedic Postop films in the OR confirm successful reduction of her total hip prosthesis. Discharge Data Consultations 08/15/22 17:10 Consult Orthopedic Surgery Stat Procedures Performed Operation Date: 08/15/22 19:35 Actual Procedures p Closed Reduction Right Hip - Henrry Kevin MD Hospital Course (1) Dislocation of right hip: The patient was initially seen on 08/15 in the ED and taken to the operating room for close reduction of her right hip. This was successful. She was transferred to the floor after recovery was completed. The rest of her night remained uneventful. This morning, she has been able to get out of bed. She has been ambulating with her walker. She describes soreness of the hip but no natalee pain. She desires discharge to home. She may continue with her previous hip exercises from the last year. We will also get her scheduled with physical therapy. Follow-up in the office at the end of the week for a recheck. Patient was placed in a hip abduction brace and she uses at all times other than showering. She understands her hip precautions. Call the office with any other concerns. Prescription for oxycodone was sent to her pharmacy. She may use Tylenol and Motrin for mild discomfort, and use the oxycodone for more severe pain. The patient was seen in conjunction with Dr. Barcenas, who also evaluated the patient and concurred with today's diagnosis, treatment, and discharge.
--- NOTE | 2022-08-19 11:45 | Progress Note ---
Date of Service August 19, 2022 Assessment & Plan Admission and Anticipated Discharge Date Admission Date: August 15, 2022 Subjective Patient is status post a right hip replacement 1 year ago. She bent over in the shower dislocated her hip.
--- NOTE | 2022-08-19 11:47 | Discharge Summary ---
Date of Service August 19, 2022 Admission HPI Per Admitting Provider This 62-year-old female is 1 year status post a right total hip arthroplasty by Dr. Barcenas. She was in the shower shaving. She put her foot up on a bench but her knee rotated inward and her hip popped out of place. She has had no problems with the hip since surgery and currently complained of right hip pain. She was brought to the ED by EMS and reduction was attempted in the ER. It was unsuccessful. Because of this, she was taken to the operating room for successful closed reduction. She has had no further issues since reduction. Discharge Data Consultations 08/15/22 17:10 Consult Orthopedic Surgery Stat Procedures Performed Operation Date: 08/15/22 19:35 Actual Procedures p Closed Reduction Right Hip - Henrry Kevin MD
== END 2022-08-16 14:21 | disposition home or self-care (01) | DRG 561 ==
LOC: ED 16:19 → ASU 19:50 → 3E 19:50

== ENCOUNTER 2023-03-25 21:22 | Inpatient (IN) ==
[2023-03-25] MEDS ORDERED: MoRPHine SULFATE 4 MG/ML 1 ML CARP\\VIAL IV STA (21:41)
[2023-03-25] MEDS ORDERED: HYDROmorphone INJ 1 MG/ML SYRINGE IV STA (22:29)
[2023-03-25] MEDS ORDERED: PROPOFOL IV EMULSION 10 MG/ML 20 ML VIAL IV STA ×2 (22:46→23:50)
[2023-03-25] MEDS ORDERED: ONDANSETRON INJ 2 MG/ML 2 ML VIAL IV STA (22:47)
--- NOTE | 2023-03-25 22:51 | Emergency Department Note ---
Impression & Plan Dislocation of right hip ED Provider Note NAME: PITO LI AGE: 62 SEX: F : 1960 ARRIVES VIA: Ambulance INFORMANT: [Patient][family] ED PROVIDER(S): [Alex Loving MD] CHIEF COMPLAINT: Hip pain HISTORY OF PRESENT ILLNESS: The patient is a 62-year-old female who states that 2 hours ago, she was sitting and suddenly, felt her right hip dislocate. She has dislocated the hip before. She was brought by ambulance. The patient has been in baseline health. She has not fallen. She states her only complaint is the hip pain. Of note, the patient has not had anything to eat in around 9 to 10 hours. PMHx/PSHx/Social Hx: See Below PHYSICAL EXAM: GENERAL: Patient is in mild distress from pain. HEENT: No acute trauma, normocephalic atraumatic, mucous membranes moist, no nasal congestion. NECK: No stridor, no adenopathy, no meningismus, trachea is midline. LUNGS: Clear to auscultation bilaterally, no wheeze, no rhonchi, breath sounds equal. HEART: Without murmurs gallops or rubs, regular rate and rhythm. ABDOMEN: Soft, nontender, no peritonitis. EXTREMITIES: No cyanosis. The patient's right leg is internally rotated and somewhat shortened. She is tender over the area of the right lateral hip. There is no evidence for distal right lower extremity neurovascular compromise. NEUROLOGIC: Oriented x 3, no acute motor or sensory deficits, no focal weakness. SKIN: No jaundice, no diaphoresis. DIFFERENTIAL DIAGNOSIS: Hip fracture, hip dislocation, neurovascular compromise, among others. EMERGENCY DEPARTMENT PROCEDURES: Procedural sedation: This procedure was performed by me. Indication: prosthetic hip dislocation. Total time: 16 minutes. Written consent was obtained after the risks and benefits were explained to the patient and family, including, but not limited to aspiration, allergic reaction, breathing difficulties, cardiac complications, vomiting, pain, event recall, bleeding, and/or infection. Pre-sedation examination and paperwork completed. The patient was on nasal cannula oxygen prior to the procedure. Continuous end tidal CO2 monitoring, pulse oximetry, and cardiac monitoring were utilized. Suction, airway equipment, medications, respiratory equipment, and appropriate personnel were prepared prior to the initiation of the procedure. A time out was taken. Sedation was achieved utilizing 120 mg of propofol. After I observed the patient had reached the appropriate level of sedation the main procedure was performed without complication, although, the attempts at relocation were unsuccessful. Sedation was discontinued and the monitoring continued. The patient recovered quickly from the effects of the medication without complicati on or adverse event. MEDICAL DECISION MAKING: The patient presents with a presumed right prosthetic hip dislocation. This was confirmed on x-ray. The dislocation appeared to be superior and somewhat posterior. There was no fracture. The patient was neurovascular intact distally in the right lower extremity. There had been no fall or trauma. Patient received IV morphine for pain, IV Dilaudid for pain. She was given IV fentanyl for pain. She received IV Zofran for nausea. She was given IV saline at 100 cc an hour. I talked to the patient about trying to reduce the hip here in the ED, she did consent, the appropriate paperwork was completed and signed. Attempts were made to reduce the hip under sedation but the attempts were unsuccessful. Despite adequate sedation, the hip would not relocate. I did speak with Dr. Simon of orthopedics. The patient is to be hospitalized for the rest of this evening, she will have the procedure to relocate the hip in the corrosion prevention metal sprayer in the operating room. The patient and her family are aware of the need for hospitalization and OR intervention in a few hours. Prior/Outside records/notes reviewed: Orthopedic discharge summary from 08/18/2022 discussing her presentation for a hip dislocation. Imaging/x-ray results per my interpretation: Right hip film shows a posterior/superior right hip dislocation. No fracture. Chronic Medical/Social conditions affecting care: Care/Management discussed with: Orthopedics-Dr. Simon. Case management and the on-call hospitalist. Level of care consideration(s): After review of the information above and other included data: --I believe the patient requires escalation of care to admission DISPOSITION: Admission with orthopedic consult Past Med/Surg History Medical History Leukopenia Chronic, PCP aware/monitoring History of COVID-19 Early 10/2021, runny nose, DUMONT > resolved Lipoma of arm Post traumatic stress disorder Anxiety and depression History of restless legs syndrome with Lyme disease Hx of Lyme disease Blood clot in vein 20+ years ago Right calf () Heart palpitations Rare occurrences x years Surgical History (Updated 01/08/22 @ 10:17 by Margoth Liu RN) S/P excision of lipoma (01/07/22) Excision Recurrent Lipoma Left Upper Extremity(Left) 6 cm x 3 cm - Ashok Carter MD, FACS History of total right hip replacement 08/2021 [place] H/O excision of mass Left upper arm by a Dtp Operator [facility] Dr. Dany Dumont Lipoma History of arthroscopy of right shoulder 05/10/20: Grade 2 view, MAC 3 ETT 7.5 + PNB. No postop issues per anesthesia progress note. Hx of gynecological procedure VAGINAL RECONSTRUCTION AND BLADDER TACK/MESH Nausea and vomiting after administration of anesthetic agent "ALWAYS GETS MEDICATED TO PREVENT" History of hysterectomy H/O foot surgery LEFT History of hemorrhoidectomy History of esophagogastroduodenoscopy (EGD) History of colonoscopy History of cholecystectomy H/O eye surgery LEFT EYE TITANIUM SHELF PLACED AFTER "CRACKING ORBIT" Family History Aunt Family history of diabetes mellitus Other No family history of adverse response to anesthesia Social History Smoking Status: Current every day smoker Tobacco Type: Cigarettes Cigarettes Per Day: 5 CIGS A WEEK-NPO; Second Hand Exposure: No; Do You Dip or Chew Tobacco: No; Hx Alcohol Use: Yes Alcohol type: wine Alcohol Intake Frequency: Monthly or Less Hx Substance Use: No Preferred Language: Belarusian Communication Ability: Effective Visual Impairment: No Limitations Cosmetic Assembler Required: No Beliefs That Will Affect Care: None marital status: Current Living Situation: Significant Other Current Living Situation Comment: lives in 2 story home with significant other current occupational status: unemployed How many Children do You have: 2 Feels Safe at Home: Yes Diet: Atkins during the past year weight has: decreased > 10 lbs Assistive Devices: Raised Toilet Seat and Walker Allergies Allergies Allergy/AdvReac Type Severity Reaction Status Date / Time doxycycline AdvReac Intermediate CAN'T Verified 03/25/23 23:10 FUNCTION, CAN'T TALK Home Meds Home Medications Medication Instructions Recorded Confirmed Bone Broth 2 cap PO QAM 05/06/20 03/25/23 Moringa 1 cap PO QAM 05/06/20 03/25/23 Turmeric Powder 1 dose PO QAM 05/06/20 03/25/23 alfalfa 650 mg tablet 650 mg PO QAM 05/06/20 03/25/23 alprazolam 0.5 mg tablet (Xanax) 0.5 mg PO BID PRN Anxiety 05/06/20 03/25/23 ascorbic acid 125 mg-collagen, 1 cap PO QAM 05/06/20 03/25/23 hydrolyzed 740 mg capsule (Collagen Plus Vitamin C) Adrenal Tincture Otc 1 dose PO UD 07/10/21 03/25/23 Hair Plus Tincture Otc 1 dose PO QAM 07/10/21 03/25/23 Kidney Tincture Otc 1 dose PO QAM 07/10/21 03/25/23 Liver Gall Bladder Tincture Otc 1 dose PO QAM 07/10/21 03/25/23 Lymphatic Tincture Otc 1 dose PO QAM 07/10/21 03/25/23 Multi Collagen Otc 2 tab PO QAM 07/10/21 03/25/23 Plant Calcium Otc 2 tab PO QAM 07/10/21 03/25/23 ascorbic acid (vitamin C) 500 mg 500 mg PO DAILY 03/25/23 03/25/23 tablet (Vitamin C) omega-3 fatty acids 1,000 mg 1,000 mg PO DAILY 03/25/23 03/25/23 capsule Results & Data (ED) Vital Signs Vital Signs - 24 hr 03/25/23 21:32 03/25/23 23:09 03/25/23 23:09 Temperature 36.4 C L Temperature Source Oral Pulse Rate 76 90 Pulse Rate [Apical] 92 H Respiratory Rate 20 17 Respiratory Effort / Characteristics Non-Labored Spontaneous Respiratory Depth Normal Respiratory Pattern Regular Blood Pressure 173/102 H Blood Pressure [Right Arm] 145/106 H Blood Pressure Mean 125 Blood Pressure Mean [Right Arm] 119 Pulse Oximetry 99 100 Oxygen Delivery Method Room Air Nasal Cannula Oxygen Flow Rate 2 Sepsis Recent Fever Within 48 Hours No Sepsis New/Unexplained Change in Mental Status No Sepsis Action Taken by Nursing No Action Required End Tidal CO2 (18-54mmHg) 40 03/25/23 23:32 03/25/23 23:36 03/25/23 23:38 Temperature Temperature Source Pulse Rate 89 87 86 Pulse Rate [Apical] Respiratory Rate 17 16 16 Respiratory Effort / Characteristics Respiratory Depth Respiratory Pattern Blood Pressure Blood Pressure [Right Arm] 154/102 H 151/90 H Blood Pressure Mean Blood Pressure Mean [Right Arm] Pulse Oximetry 100 98 100 Oxygen Delivery Method Nasal Cannula Nasal Cannula Nasal Cannula Oxygen Flow Rate 2 2 4 Sepsis Recent Fever Within 48 Hours Sepsis New/Unexplained Change in Mental Status Sepsis Action Taken by Nursing End Tidal CO2 (18-54mmHg) 28 25 28 03/25/23 23:40 03/25/23 23:41 03/25/23 23:45 Temperature Temperature Source Pulse Rate 90 89 92 H Pulse Rate [Apical] Respiratory Rate 15 15 14 Respiratory Effort / Characteristics Respiratory Depth Respiratory Pattern Blood Pressure Blood Pressure [Right Arm] 139/88 164/110 H Blood Pressure Mean Blood Pressure Mean [Right Arm] Pulse Oximetry 100 96 94 Oxygen Delivery Method Nasal Cannula Nasal Cannula Nasal Cannula Oxygen Flow Rate 4 4 4 Sepsis Recent Fever Within 48 Hours Sepsis New/Unexplained Change in Mental Status Sepsis Action Taken by Nursing End Tidal CO2 (18-54mmHg) 29 27 30 03/25/23 23:50 03/25/23 23:55 03/26/23 00:00 Temperature Temperature Source Pulse Rate 77 78 76 Pulse Rate [Apical] Respiratory Rate 16 16 16 Respiratory Effort / Characteristics Respiratory Depth Respiratory Pattern Blood Pressure Blood Pressure [Right Arm] 143/92 H 144/93 H 145/87 H Blood Pressure Mean Blood Pressure Mean [Right Arm] Pulse Oximetry 100 100 100 Oxygen Delivery Method Nasal Cannula Nasal Cannula Nasal Cannula Oxygen Flow Rate 4 4 2 Sepsis Recent Fever Within 48 Hours Sepsis New/Unexplained Change in Mental Status Sepsis Action Taken by Nursing End Tidal CO2 (18-54mmHg) 38 39 32 03/26/23 00:05 03/26/23 00:20 Temperature Temperature Source Pulse Rate 82 Pulse Rate [Apical] 90 Respiratory Rate 16 15 Respiratory Effort / Characteristics Respiratory Depth Respiratory Pattern Blood Pressure Blood Pressure [Right Arm] 131/76 132/83 Blood Pressure Mean Blood Pressure Mean [Right Arm] 99 Pulse Oximetry 98 95 Oxygen Delivery Method Room Air Room Air Oxygen Flow Rate Sepsis Recent Fever Within 48 Hours Sepsis New/Unexplained Change in Mental Status Sepsis Action Taken by Nursing End Tidal CO2 (18-54mmHg) 36 Home Medications Current Medication List: was personally reviewed by me Administered Medications Sodium Chloride (Nss) 1,000 mls @ 100 mls/hr IV .Q10H SHANNAN Stop: 04/24/23 22:59 Last Admin: 03/25/23 23:24 Dose: 100 mls/hr Documented By: AN Discontinued Medications Fentanyl Citrate (Fentanyl Citrate Pf 100 Mcg/2 Ml Vial) Confirm Administered Dose 100 mcg .ROUTE .STK-MED ONE Stop: 03/25/23 23:31 Last Increment: 03/25/23 23:33 Dose: 50 mcg Documented By: ANNA Fentanyl Citrate (Fentanyl Citrate Pf 100 Mcg/2 Ml Vial) 50 mcg IV NOW STA Stop: 03/25/23 23:32 Last Admin: 03/25/23 23:50 Dose: Not Given Documented By: ANNA Hydromorphone HCl (Hydromorphone Inj 1 Mg/Ml Syringe) 1 mg IV NOW STA Stop: 03/25/23 22:30 Last Admin: 03/25/23 22:42 Dose: 0.5 mg Documented By: KYLER Hydromorphone HCl (Hydromorphone Inj 0.5 Mg/0.5 Ml Syr) 0.5 mg IV NOW STA Stop: 03/26/23 00:16 Last Admin: 03/26/23 00:21 Dose: 0.5 mg Documented By: ANNA Morphine Sulfate (Morphine Sulfate 4 Mg/Ml 1 Ml Carp\\Vial) 4 mg IV NOW STA Stop: 03/25/23 21:42 Last Admin: 03/25/23 21:47 Dose: 4 mg Documented By: KYLER Ondansetron HCl (Ondansetron Inj 2 Mg/Ml 2 Ml Vial) 4 mg IV NOW STA Stop: 03/25/23 22:48 Last Admin: 03/25/23 23:29 Dose: 4 mg Documented By: ANNA Propofol (Propofol Iv Emulsion 10 Mg/Ml 20 Ml Vial) 60 mg IV NOW STA Stop: 03/25/23 22:47 Last Admin: 03/25/23 23:51 Dose: 60 mg Documented By: LUL Co-signed By: SVETLANA Propofol (Propofol Iv Emulsion 10 Mg/Ml 20 Ml Vial) 60 mg IV NOW STA Stop: 03/25/23 23:51 Last Admin: 03/25/23 23:52 Dose: 60 mg Documented By: LUL Co-signed By: SVETLANA Discharge Plan Visit Data Chief Complaint: Hip Pain Stated Complaint: DISLOCATED HIP ED Provider: Feese,Alex J Discharge Problem: Dislocation of right hip Patient Disposition: Admitted As Inpatient Condition: Fair Forms Stand Alone Forms: Anesthesia/Sedation, Adult, My [facility] Prescriptions Prescriptions: No Action alprazolam [Xanax] 0.5 mg Tablet 0.5 mg PO BID PRN (Reason: Anxiety) alfalfa 650 mg Tablet 650 mg PO QAM Collagen Plus Vitamin C 125-740 mg Capsule 1 cap PO QAM Bone Broth 2 cap PO QAM Moringa 1 cap PO QAM Patient Comments: SUPER FOOD SUPPLEMENT Turmeric Powder 1 dose PO QAM Plant Calcium Otc 2 tab PO QAM Multi Collagen Otc 2 tab PO QAM Kidney Tincture Otc 1 dose PO QAM Lymphatic Tincture Otc 1 dose PO QAM Adrenal Tincture Otc 1 dose PO UD Rx Instructions: 2 days per week Hair Plus Tincture Otc 1 dose PO QAM Liver Gall Bladder Tincture Otc 1 dose PO QAM omega-3 fatty acids 1,000 mg Capsule 1,000 mg PO DAILY ascorbic acid (vitamin C) [Vitamin C] 500 mg Tablet 500 mg PO DAILY Referrals Referrals: Gabriel Bowers MD [Primary Care Provider] - Discharge Problem: Dislocation of right hip Qualifiers: Encounter type: initial encounter Qualified Code(s): S73.004A - Unspecified dislocation of right hip, initial encounter
--- NOTE | 2023-03-25 22:55 | Emergency Department Note ---
Pre Sedation Assessment Vital Signs Temp Pulse Pulse Resp BP BP Pulse Ox 03/26/23 00:20 90 15 132/83 95 03/26/23 00:05 82 16 131/76 98 03/26/23 00:00 76 16 145/87 H 100 03/25/23 23:55 78 16 144/93 H 100 03/25/23 23:50 77 16 143/92 H 100 03/25/23 23:45 92 H 14 164/110 H 94 03/25/23 23:41 89 15 96 03/25/23 23:40 90 15 139/88 100 03/25/23 23:38 86 16 151/90 H 100 03/25/23 23:36 87 16 98 03/25/23 23:32 89 17 154/102 H 100 03/25/23 23:09 90 03/25/23 23:09 92 H 17 145/106 H 100 03/25/23 21:32 36.4 C L 76 20 173/102 H 99 O2 Del Method O2 Flow Rate 03/26/23 00:20 Room Air 03/26/23 00:05 Room Air 03/26/23 00:00 Nasal Cannula 2 03/25/23 23:55 Nasal Cannula 4 03/25/23 23:50 Nasal Cannula 4 03/25/23 23:45 Nasal Cannula 4 03/25/23 23:41 Nasal Cannula 4 03/25/23 23:40 Nasal Cannula 4 03/25/23 23:38 Nasal Cannula 4 03/25/23 23:36 Nasal Cannula 2 03/25/23 23:32 Nasal Cannula 2 03/25/23 23:09 03/25/23 23:09 Nasal Cannula 2 03/25/23 21:32 Room Air Cardiovascular RRR, no murmur, no edema + capillary refill normal Respiratory normal respiratory effort, lungs clear to auscultation Pre-Sedation Airway Assessment Smoking Status: Current every day smoker Hx Sleep Apnea: No Hx Difficult Intubation: No Short, Thick Neck: No Thyromental Distance: > or= 3.5 Finger Breadths Oral Cavity: + WNL Mallampati Class: I ASA: ASA2 NPO Status Date of Last Intake of Fluids: 03/25/23 Time of Last Intake of Fluids: 12:00 Date of Last Intake of Solid Food: 03/25/23 Time of Last Intake of Solid Foods: 12:00 Procedure Planning Contraindications for Sedation: none Current Medications Reviewed: Yes Notes The planned sedation has been discussed with the patient. Informed Consent was obtained. I have identified the patient, determined the appropriateness of sedation and have assessed the patient immediately prior to the procedure. All medicine(s) and interventions are by my order. Supervising Physician Co-Signing Physician Notes Patient was an excellent candidate for procedural sedation here in the ED.
[2023-03-25] MEDS ORDERED: SODIUM CHLORIDE 0.9% 1,000 ML IV SCH (23:00)
[2023-03-25] MEDS ORDERED: fentaNYL citrate PF 100 MCG/2 ML VIAL ONE (23:30)
[2023-03-25] MEDS ORDERED: fentaNYL citrate PF 100 MCG/2 ML VIAL IV STA (23:31)
--- NOTE | 2023-03-25 23:50 | Emergency Department Note ---
ED Visit Note Patient was seen and evaluated at the request of my attending physician, Dr. Loving, for assistance with a right hip relocation. Please see Dr. Fine's dictation for full history of present illness and emergency department course outside of this note. In short, the patient has a prosthetic dislocation of the right hip. Patient was placed in trauma room B1 where conscious sedation was performed by Dr. Loving. Adequate sedation was performed and reduction attempt was attempted several times. Several attempts were not successful to relocate the hip. The patient has had OR reduction in the past for this, and reduction was aborted after several attempts. Patient was recovered by nursing. Dr. Loving was at bedside for the entirety of the attempted reduction. .
[2023-03-26] MEDS ORDERED: HYDROmorphone INJ 0.5 MG/0.5 ML SYR IV STA (00:15)
[2023-03-26] MEDS ORDERED: HYDROmorphone INJ 0.5 MG/0.5 ML SYR IV PRN (00:15)
--- NOTE | 2023-03-26 00:53 | Emergency Department Note ---
Post Sedation Assessment Vital Signs Temp Pulse Pulse Resp BP BP Pulse Ox 03/26/23 00:20 90 15 132/83 95 03/26/23 00:05 82 16 131/76 98 03/26/23 00:00 76 16 145/87 H 100 03/25/23 23:55 78 16 144/93 H 100 03/25/23 23:50 77 16 143/92 H 100 03/25/23 23:45 92 H 14 164/110 H 94 03/25/23 23:41 89 15 96 03/25/23 23:40 90 15 139/88 100 03/25/23 23:38 86 16 151/90 H 100 03/25/23 23:36 87 16 98 03/25/23 23:32 89 17 154/102 H 100 03/25/23 23:09 90 03/25/23 23:09 92 H 17 145/106 H 100 03/25/23 21:32 36.4 C L 76 20 173/102 H 99 O2 Del Method O2 Flow Rate 03/26/23 00:20 Room Air 03/26/23 00:05 Room Air 03/26/23 00:00 Nasal Cannula 2 03/25/23 23:55 Nasal Cannula 4 03/25/23 23:50 Nasal Cannula 4 03/25/23 23:45 Nasal Cannula 4 03/25/23 23:41 Nasal Cannula 4 03/25/23 23:40 Nasal Cannula 4 03/25/23 23:38 Nasal Cannula 4 03/25/23 23:36 Nasal Cannula 2 03/25/23 23:32 Nasal Cannula 2 03/25/23 23:09 03/25/23 23:09 Nasal Cannula 2 03/25/23 21:32 Room Air Recovery Score Activity: Moves 4 extremities Respiration: Deep Breath/Cough Circulation: +/-20% PreAnes Value Consciousness: Fully Awake Oxygen Saturation: > 92% On Room Air Post Anesthesia Score: 10 Discharge Sedation Level of Care: Fast Track Phase II Unexpected Event: None Post Sedation Plan On clinical assessment, the patient appears to have tolerated the sedation without complications. Patient is recovering as anticipated. Patient will continue to be monitored by nursing and may be discharged when sedation discharge criteria are met per below protocol. Upon Completions of procedure up to 15 minutes continue every 5 minute vital signs and the P.A.R. score; then discharge to a Phase I or Fast Track to Phase II per the following guidelines: * Discharge Patient to appropriate Phase II area if PAR is 8 or greater or return to pre- procedure baseline. The post - procedure orders will be as directed. * If PAR score is less than 8 or not return to pre-procedure baseline then patient will follow Phase I monitoring till PAR is reached for Phase II. The Phase I may be done in procedure room or may call to secure a Phase I area. * If naloxone or flumazenil are used for reversal, hold in Phase I for continued monitoring from when last reversal dose was given for a minimum of 60 minutes or longer pending the nurse and/or physician discretion of patient condition before discharge to Phase II. Please call the Sedation Physician to re-evaluate and complete post-note for discharge to Phase II area. Do NOT discharge from procedure sedation or Phase 1 until post- sedation evaluation note is complete by procedure /sedation MD Sedation Discharge Instructions to be given to the patient at discharge to home. Sedation Data Sedation Times Sedation Start Date: 03/25/23 Sedation Start Time: 23:36 Procedure Times Procedure Start Time:: 23:41 Procedure End Time: 23:45 Supervising Physician Co-Signing Physician Notes Patient tolerated sedation well, no complications, unfortunately, the hip could not be relocated.
--- NOTE | 2023-03-26 01:35 | History & Physical Report ---
Date of Service March 26, 2023 Assessment & Plan (1) Dislocation of right hip: Plan: 62-year-old female with past med history significant for anxiety, history of right hip total arthroplasty comes because of right hip dislocation. Patient states she was sitting around round table and playing cards. When she tried to get up she suddenly noticed that she dislocated right hip. Came to the ER. ER tried to reduce the hip but were unsuccessful. Ortho is going to do the reduction of the hip in the morning. Patient has pain at the right hip dislocation site. States currently not able to micturate. Denies any headache. No blurred visions. No earache or runny nose or sore throat. No cough. No fevers. Earlier because of her anxiety attack had chest pain but that got resolved now. Patient says whenever she is anxious she gets chest pains. Harshal es shortness of breath. No nausea. No abdominal pain. Hemodynamically stable. She has a history of right hip dislocation in August 2022 and at that time also it was reduced by the orthopedics. Right hip dislocation Could not be reduced in the ER Plan for reduction by Ortho in a.m. N.p.o., IV fluids IV pain meds as needed Close monitor Anxiety Xanax as needed DVT prophylaxis Could not place on SCDs because of pain in the hips Lovenox once hip is reduced if still in hospital Disposition Medical floor Full code History of Present Illness Chief Complaint: Right hip dislocation Primary Care Provider: Gabriel Bowers MD 62-year-old female with past med history significant for anxiety, history of right hip total arthroplasty comes because of right hip dislocation. Patient states she was sitting around round table and playing cards. When she tried to get up she suddenly noticed that she dislocated right hip. Came to the ER. ER tried to reduce the hip but were unsuccessful. Ortho is going to do the reduction of the hip in the morning. Patient has pain at the right hip dislocation site. States currently not able to micturate. Denies any headache. No blurred visions. No earache or runny nose or sore throat. No cough. No fevers. Earlier because of her anxiety attack had chest pain but that got resolved now. Patient says whenever she is anxious she gets chest pains. Denies shortness of breath. No nausea. No abdominal pain. Hemodynamically stable. She has a history of right hip dislocation in August 2022 and at that time also it was reduced by the orthopedics. Allergies Allergy/AdvReac Type Severity Reaction Status Date / Time doxycycline AdvReac Intermediate CAN'T Verified 03/25/23 23:10 FUNCTION, CAN'T TALK Home Medications Medication Instructions Recorded Confirmed Type Bone Broth 2 cap PO QAM 05/06/20 03/25/23 History Moringa 1 cap PO QAM 05/06/20 03/25/23 History Turmeric Powder 1 dose PO QAM 05/06/20 03/25/23 History alfalfa 650 mg tablet 650 mg PO QAM 05/06/20 03/25/23 History alprazolam 0.5 mg tablet (Xanax) 0.5 mg PO BID PRN Anxiety 05/06/20 03/25/23 History ascorbic acid 125 mg-collagen, 1 cap PO QAM 05/06/20 03/25/23 History hydrolyzed 740 mg capsule (Collagen Plus Vitamin C) Adrenal Tincture Otc 1 dose PO UD 07/10/21 03/25/23 History Hair Plus Tincture Otc 1 dose PO QAM 07/10/21 03/25/23 History Kidney Tincture Otc 1 dose PO QAM 07/10/21 03/25/23 History Liver Gall Bladder Tincture Otc 1 dose PO QAM 07/10/21 03/25/23 History Lymphatic Tincture Otc 1 dose PO QAM 07/10/21 03/25/23 History Multi Collagen Otc 2 tab PO QAM 07/10/21 03/25/23 History Plant Calcium Otc 2 tab PO QAM 07/10/21 03/25/23 History ascorbic acid (vitamin C) 500 mg 500 mg PO DAILY 03/25/23 03/25/23 History tablet (Vitamin C) omega-3 fatty acids 1,000 mg 1,000 mg PO DAILY 03/25/23 03/25/23 History capsule Past Med/Surg History Medical History Leukopenia Chronic, PCP aware/monitoring History of COVID-19 Early 10/2021, runny nose, DUMONT > resolved Lipoma of arm Post traumatic stress disorder Anxiety and depression History of restless legs syndrome with Lyme disease Hx of Lyme disease Blood clot in vein 20+ years ago Right calf () Heart palpitations Rare occurrences x years Surgical History S/P excision of lipoma (01/07/22) Excision Recurrent Lipoma Left Upper Extremity(Left) 6 cm x 3 cm - Ashok Carter MD, FACS History of total right hip replacement 08/2021 [place] H/O excision of mass Left upper arm by a Retail Supervisor [facility] Dr. Dany Dumont Lipoma History of arthroscopy of right shoulder 05/10/20: Grade 2 view, MAC 3 ETT 7.5 + PNB. No postop issues per anesthesia progress note. Hx of gynecological procedure VAGINAL RECONSTRUCTION AND BLADDER TACK/MESH Nausea and vomiting after administration of anesthetic agent "ALWAYS GETS MEDICATED TO PREVENT" History of hysterectomy H/O foot surgery LEFT History of hemorrhoidectomy History of esophagogastroduodenoscopy (EGD) History of colonoscopy History of cholecystectomy H/O eye surgery LEFT EYE TITANIUM SHELF PLACED AFTER "CRACKING ORBIT" Family History Aunt Family history of diabetes mellitus Other No family history of adverse response to anesthesia Social History Smoking Status: Former smoker Tobacco Type: Cigarettes Cigarettes Per Day: 5 CIGS A WEEK-NPO; Second Hand Exposure: No; Do You Dip or Chew Tobacco: No; Hx Alcohol Use: Yes Alcohol type: wine Alcohol Intake Frequency: Monthly or Less Hx Substance Use: No Preferred Language: [place] Islander Communication Ability: Effective Visual Impairment: No Limitations Machine Setter Sheet Metal Required: No Beliefs That Will Affect Care: None marital status: Current Living Situation: Significant Other Current Living Situation Comment: lives in 2 story home with significant other current occupational status: unemployed How many Children do You have: 2 Other Information That Helps Us Care for You: No Feels Safe at Home: Yes Safety Concerns: Feels Safe At This Time Diet: Atkins during the past year weight has: decreased > 10 lbs Assistive Devices: None Review of Systems Review of Systems: All systems reviewed & are unremarkable except as noted in HPI & below Physical Exam Physical Exam: General- Not in distress Head- atraumatic Eyes- PERRL. ENT- oropharynx clear Neck- supple, no JVD. Lungs- clear to auscultation no wheezing or crackles. Heart- regular rhythm; no murmur, no gallop. Abdomen- normal bowel sounds, soft, nontender, no distension. Extremities- no pretibial edema, right lower extremity shortened and externally rotated Neuro- alert, oriented x 3; PERRL, ; no facial palsy; no dysarthria. Skin- warm & dry Results & Data Results & Data Vital Signs (Past 12 Hours) Vital Signs Temp Pulse Pulse Resp BP BP Pulse Ox 03/26/23 00:20 90 15 132/83 95 03/26/23 00:05 82 16 131/76 98 03/26/23 00:00 76 16 145/87 H 100 03/25/23 23:55 78 16 144/93 H 100 03/25/23 23:50 77 16 143/92 H 100 03/25/23 23:45 92 H 14 164/110 H 94 03/25/23 23:41 89 15 96 03/25/23 23:40 90 15 139/88 100 03/25/23 23:38 86 16 151/90 H 100 03/25/23 23:36 87 16 98 03/25/23 23:32 89 17 154/102 H 100 03/25/23 23:09 90 03/25/23 23:09 92 H 17 145/106 H 100 03/25/23 22:46 98 03/25/23 21:32 36.4 C L 76 20 173/102 H 99 O2 Del Method O2 Flow Rate 03/26/23 00:20 Room Air 03/26/23 00:05 Room Air 03/26/23 00:00 Nasal Cannula 2 03/25/23 23:55 Nasal Cannula 4 03/25/23 23:50 Nasal Cannula 4 03/25/23 23:45 Nasal Cannula 4 03/25/23 23:41 Nasal Cannula 4 03/25/23 23:40 Nasal Cannula 4 03/25/23 23:38 Nasal Cannula 4 03/25/23 23:36 Nasal Cannula 2 03/25/23 23:32 Nasal Cannula 2 03/25/23 23:09 03/25/23 23:09 Nasal Cannula 2 03/25/23 22:46 Nasal Cannula 2 03/25/23 21:32 Room Air Code Status & VTE Plan VTE Prophylaxis Plan VTE Prophylaxis will be ordered: Yes (1) Dislocation of right hip Encounter type: initial encounter Qualified Code(s): S73.004A - Unspecified dislocation of right hip, initial encounter
[2023-03-26] MEDS ORDERED: SODIUM CHLORIDE 0.9% 1,000 ML IV SCH (02:13)
[2023-03-26] MEDS ORDERED: ONDANSETRON INJ 2 MG/ML 2 ML VIAL IV PRN ×2 (02:13→07:32)
[2023-03-26] MEDS ORDERED: ALPRAZolam 0.5 MG TABLET PO PRN (02:13)
[2023-03-26] MEDS: HYDROmorphone INJ 0.5 MG/0.5 ML SYR IV PRN ×2 (02:15→05:54)
[2023-03-26] MEDS ORDERED: CYCLOBENZAPRINE HCL 10 MG TAB PO STA (03:34)
--- NOTE | 2023-03-26 07:08 | Anesthesiology Consultation ---
Date of Service March 26, 2023 Assessment & Plan Chart Review Chart Review: Acceptable Risk for Surgery and Patient NOT seen in Pre Admission Testing Consults Requested none ASA ASA2 Proposed Anesthesia Anesthesia Type: MAC (back up GA) Risk / Benefits Reviewed With: PT / POA / Parent / Guardian, Accepts Plan and Informed Consent Obtained History Surgery Operation Date: 03/26/23 07:30 Proposed Procedures p Closed Reduction Extremity(Left) - Tonio Simon MD Height/Weight Height: 5 ft 3 in Weight: 63.503 kg Allergies Allergy/AdvReac Type Severity Reaction Status Date / Time doxycycline AdvReac Intermediate CAN'T Verified 03/25/23 23:10 FUNCTION, CAN'T TALK Medications Home Medications Medication Instructions Recorded Confirmed Last Taken Bone Broth 2 cap PO QAM 05/06/20 03/25/23 03/24/23 Moringa 1 cap PO QAM 05/06/20 03/25/23 03/24/23 Turmeric Powder 1 dose PO QAM 05/06/20 03/25/23 03/24/23 alfalfa 650 mg tablet 650 mg PO QAM 05/06/20 03/25/23 03/24/23 alprazolam 0.5 mg tablet (Xanax) 0.5 mg PO BID PRN Anxiety 05/06/20 03/25/23 01/06/22 22:00 ascorbic acid 125 mg-collagen, 1 cap PO QAM 05/06/20 03/25/23 03/24/23 hydrolyzed 740 mg capsule (Collagen Plus Vitamin C) Adrenal Tincture Otc 1 dose PO UD 07/10/21 03/25/23 03/24/23 Hair Plus Tincture Otc 1 dose PO QAM 07/10/21 03/25/23 03/24/23 Kidney Tincture Otc 1 dose PO QAM 07/10/21 03/25/23 03/24/23 Liver Gall Bladder Tincture Otc 1 dose PO QAM 07/10/21 03/25/23 03/24/23 Lymphatic Tincture Otc 1 dose PO QAM 07/10/21 03/25/23 03/24/23 Multi Collagen Otc 2 tab PO QAM 07/10/21 03/25/23 03/24/23 Plant Calcium Otc 2 tab PO QAM 05/08/2603/25/23 03/24/23 ascorbic acid (vitamin C) 500 mg 500 mg PO DAILY 03/25/23 03/25/23 03/24/23 tablet (Vitamin C) omega-3 fatty acids 1,000 mg 1,000 mg PO DAILY 03/25/23 03/25/23 03/24/23 capsule Active Medications Generic Name Dose Route Start Last Admin Trade Name Freq PRN Reason Stop Dose Admin Hydromorphone HCl 0.5 mg 03/26/23 02:13 03/26/23 05:54 Hydromorphone Inj 0.5 Mg/0.5 Ml Syr IV 04/09/23 02:12 0.5 mg Q3H PRN Administration Pain Sodium Chloride 1,000 mls @ 100 mls/hr 03/26/23 02:13 03/26/23 02:27 Nss IV 04/25/23 02:12 100 mls/hr .Q10H SHANNAN Administration NPO Date Last Intake of Fluids: 03/25/23 Time Last Intake of Fluids: 23:59 Last Intake of Fluids Comment: water Date Last Intake of Solids: 03/26/23 Time Last Intake of Solids: 23:59 Past Medical History Medical History Leukopenia Chronic, PCP aware/monitoring History of COVID-19 Early 10/2021, runny nose, DUMONT > resolved Lipoma of arm Post traumatic stress disorder Anxiety and depression History of restless legs syndrome with Lyme disease Hx of Lyme disease Blood clot in vein 20+ years ago Right calf () Heart palpitations Rare occurrences x years Exercise / Class Metabolic Activity II 4-5 Yardwork/Stairs/Walk up hill Past Family History Family History Aunt Family history of diabetes mellitus Other No family history of adverse response to anesthesia Past Surgical History Surgical History S/P excision of lipoma (01/07/22) Excision Recurrent Lipoma Left Upper Extremity(Left) 6 cm x 3 cm - Ashok Carter MD, FACS History of total right hip replacement 08/2021 [place] H/O excision of mass Left upper arm by a Microstrategy Bi Developer [facility] Dr. Dayn Dumont Lipoma History of arthroscopy of right shoulder 05/10/20: Grade 2 view, MAC 3 ETT 7.5 + PNB. No postop issues per anesthesia progress note. Hx of gynecological procedure VAGINAL RECONSTRUCTION AND BLADDER TACK/MESH Nausea and vomiting after administration of anesthetic agent "ALWAYS GETS MEDICATED TO PREVENT" History of hysterectomy H/O foot surgery LEFT History of hemorrhoidectomy History of esophagogastroduodenoscopy (EGD) History of colonoscopy History of cholecystectomy H/O eye surgery LEFT EYE TITANIUM SHELF PLACED AFTER "CRACKING ORBIT" Past Anesthesia History No Hx of Anesthesia Complications and No Family Hx of Anesthesia Complications History of PONV No Hx of PONV and No Hx of Motion Sickness Social History Smoking Status: Former smoker tobacco type: cigarettes Smoking cigarettes per day: 5 CIGS A WEEK-NPO Do You Dip or Chew Tobacco: No Hx Alcohol Use: Yes Alcohol type: wine alcohol intake frequency: holidays/special occasions only Hx Substance Use: No substance use type: does not use Review of Systems ROS Unobtainable: All systems reviewed & are unremarkable except as noted in HPI & below Physical Exam Vital Signs Last Vital Signs Temp 36.9 C 03/26/23 02:10 Pulse 69 03/26/23 02:10 Resp 20 03/26/23 02:10 BP 126/79 03/26/23 02:10 Pulse Ox 95 03/26/23 02:10 O2 Del Method Room Air 03/26/23 02:10 O2 Flow Rate 2 03/26/23 00:00 ENMT Mouth: no TMJ abnormality and oral opening not small Thyromental Distance: > or= 3.5 Finger Breadths Mallampati Class: II Neck normal visual inspection and trachea midline; neck extension not limited Respiratory normal respiratory effort Auscultation: lungs clear to auscultation bilaterally; no crackles Cardiovascular Rate/Rhythm: regular rate and regular rhythm Heart Sounds: no murmur Musculoskeletal Spine: normal cervical ROM Extremities: full ROM of extremities Neurologic moves all extremities Psychiatric Orientation: alert and oriented x 3 Testing Laboratory Results Laboratory Tests 07/15/21 07/15/21 08/15/22 14:35 14:35 16:33 WBC Hgb 14.6 Hct Plt Count 222 PT 10.9 INR 1.0 APTT 25.3 Sodium 139 Potassium 3.7 Chloride 104 Carbon Dioxide 27 BUN 16 Creatinine 0.73 Glucose 118 H Hemoglobin A1c 5.0 08/15/22 08/15/22 16:33 16:33 WBC 3.42 L Hgb Hct 41.6 Plt Count PT INR APTT Sodium Potassium Chloride Carbon Dioxide BUN Creatinine Glucose Hemoglobin A1c Electrocardiogram Date: 03/26/23 Findings: + NSR @
--- NOTE | 2023-03-26 07:12 | Electrocardiogram Report ---
Test Reason : Blood Pressure : / mmHG Vent. Rate : 079 BPM Atrial Rate : 079 BPM P-R Int : 144 ms QRS Dur : 082 ms QT Int : 400 ms P-R-T Axes : 012 038 037 degrees QTc Int : 458 ms Poor data quality, interpretation may be adversely affected Normal sinus rhythm Low voltage QRS Borderline ECG When compared with ECG of 28-DEC-2021 11:15, No significant change was found Confirmed by Scar Toro ([id number]) on 03/26/2023 7:12:07 AM Referred By: REFERRED SELF Confirmed By:William Toro
[2023-03-26] MEDS ORDERED: DexMEDEtomidine HCL IV 100 MCG/ML VIAL IV ONE (07:20)
[2023-03-26] MEDS ORDERED: LIDOCAINE 2% 2 ML VIAL/AMP(20MG/ML) INFIL ONE (07:23)
[2023-03-26] MEDS ORDERED: PROPOFOL IV EMULSION 10 MG/ML 20 ML VIAL IV ONE (07:23)
[2023-03-26] MEDS ORDERED: MIDAZOLAM HCL 1 MG/ML 2ML VIAL ONE (07:24)
[2023-03-26] MEDS ORDERED: ePHEDrine sulfate 50 MG/ML AMP IV PRN (07:32)
[2023-03-26] MEDS ORDERED: fentaNYL citrate PF 100 MCG/2 ML VIAL IV PRN (07:32)
[2023-03-26] MEDS ORDERED: ATROPINE SULFATE 0.1 MG/ML 10ML SYR IV PRN (07:32)
[2023-03-26 07:41] LABS: BUN Creatinine Ratio 17.9 (10-20); Calcium 9.2 mg/dl (8.6-10.3); Creatinine Clr Calc Pharmacy 92.3 ml/min; Est GFR (Non-African American) 99.2 ml/min; Magnesium 1.7 mg/dl (1.7-2.4)
--- NOTE | 2023-03-26 07:45 | Orthopedic Consultation ---
Date of Service March 26, 2023 Assessment & Plan (1) Dislocation of hip joint prosthesis: Given the failure of the attempt in the ER, we will move forward with an attempt under anesthesia control here in the operating room. The plan will be a closed reduction only. No plans for open or revision surgery. We reviewed the risk, benefits and alternatives which are minimal for her. She is understanding the situation due to previous episode. Informed consent was documented the preoperative holding area. I did review that this could lead to this fracture, or need for revision surgery should we fail to get this done in a closed manner. She was understanding and agreeable to proceed with another attempt at closed reduction today. History of Present Illness Reason for Consultation: Right hip dislocation Requesting Physician: . Attending Physician: Xavi Shannon MD 62-year-old female had a second prosthetic hip dislocation last evening. There was an attempted reduction in the emergency room; however, they were unsuccessful. She had a previous hip dislocation requiring operating room intervention. Original implant was August 2021. Denies any numbness or tingling. Allergies Allergy/AdvReac Type Severity Reaction Status Date / Time doxycycline AdvReac Intermediate CAN'T Verified 03/25/23 23:10 FUNCTION, CAN'T TALK Home Medications Medication Instructions Recorded Confirmed Type Bone Broth 2 cap PO QAM 05/06/20 03/25/23 History [place] 1 cap PO QAM 05/06/20 03/25/23 History Turmeric Powder 1 dose PO QAM 05/06/20 03/25/23 History alfalfa 650 mg tablet 650 mg PO QAM 05/06/20 03/25/23 History alprazolam 0.5 mg tablet (Xanax) 0.5 mg PO BID PRN Anxiety 05/06/20 03/25/23 History ascorbic acid 125 mg-collagen, 1 cap PO QAM 05/06/20 03/25/23 History hydrolyzed 740 mg capsule (Collagen Plus Vitamin C) Adrenal Tincture Otc 1 dose PO UD 07/10/21 03/25/23 History Hair Plus Tincture Otc 1 dose PO QAM 07/10/21 03/25/23 History Kidney Tincture Otc 1 dose PO QAM 07/10/21 03/25/23 History Liver Gall Bladder Tincture Otc 1 dose PO QAM 07/10/21 03/25/23 History Lymphatic Tincture Otc 1 dose PO QAM 07/10/21 03/25/23 History Multi Collagen Otc 2 tab PO QAM 07/10/21 03/25/23 History Plant Calcium Otc 2 tab PO QAM 07/10/21 03/25/23 History ascorbic acid (vitamin C) 500 mg 500 mg PO DAILY 03/25/23 03/25/23 History tablet (Vitamin C) omega-3 fatty acids 1,000 mg 1,000 mg PO DAILY 03/25/23 03/25/23 History capsule Past Med/Surg History Medical History Leukopenia Chronic, PCP aware/monitoring History of COVID-19 Early 10/2021, runny nose, DUMONT > resolved Lipoma of arm Post traumatic stress disorder Anxiety and depression History of restless legs syndrome with Lyme disease Hx of Lyme disease Blood clot in vein 20+ years ago Right calf () Heart palpitations Rare occurrences x years Surgical History S/P excision of lipoma (01/07/22) Excision Recurrent Lipoma Left Upper Extremity(Left) 6 cm x 3 cm - Ashok Carter MD, FACS History of total right hip replacement 08/2021 [place] H/O excision of mass Left upper arm by a Exercise Science Internship [facility] Dr. Dany Dumont Lipoma History of arthroscopy of right shoulder 05/10/20: Grade 2 view, MAC 3 ETT 7.5 + PNB. No postop issues per anesthesia progress note. Hx of gynecological procedure VAGINAL RECONSTRUCTION AND BLADDER TACK/MESH Nausea and vomiting after administration of anesthetic agent "ALWAYS GETS MEDICATED TO PREVENT" History of hysterectomy H/O foot surgery LEFT History of hemorrhoidectomy History of esophagogastroduodenoscopy (EGD) History of colonoscopy History of cholecystectomy H/O eye surgery LEFT EYE TITANIUM SHELF PLACED AFTER "CRACKING ORBIT" Family History Aunt Family history of diabetes mellitus Other No family history of adverse response to anesthesia Social History Smoking Status: Former smoker Tobacco Type: Cigarettes Cigarettes Per Day: 5 CIGS A WEEK-NPO; Second Hand Exposure: No; Do You Dip or Chew Tobacco: No; Hx Alcohol Use: Yes Alcohol type: wine Alcohol Intake Frequency: Monthly or Less Hx Substance Use: No Preferred Language: Iranian Communication Ability: Effective Visual Impairment: No Limitations Housekeeper Nanny Required: No Beliefs That Will Affect Care: None marital status: Current Living Situation: Significant Other Current Living Situation Comment: lives in 2 story home with significant other current occupational status: unemployed How many Children do You have: 2 Other Information That Helps Us Care for You: No Feels Safe at Home: Yes Safety Concerns: Feels Safe At This Time Diet: Atkins during the past year weight has: decreased > 10 lbs Assistive Devices: None Review of Systems All systems reviewed & are unremarkable except as noted in HPI & below. Physical Exam RLE: No overlying skin trauma. Neurovascular intact distally. Limb is shortened and externally rotated. Constitutional WD/WN, vitals as above Respiratory normal respiratory effort; no respiratory distress Cardiovascular Extremities: normal capillary refill; no edema Chest (Breasts) Chest: normal inspection of chest Skin no rashes, warm and dry Psychiatric A+Ox3, euthymic affect Results & Data Results & Data Laboratory Results . Diagnostic Findings Radiographs of the hip and pelvis demonstrate a posterior superior dislocation of the right prosthetic hip. No obvious fractures. No obvious implant complications other than dislocation. PG Care Time/CCT Total # of Minutes Spent Total Time Spent with Patient: Total time spent is greater than 50% in coordination of care (as documented) at patient's floor/unit and/or counseling patient: Coding Level of Care Code 06315 IN/OBS CONSULT LVL 4,60M Diagnoses Dislocation of hip joint prosthesis T84.029A; Z96.649
--- NOTE | 2023-03-26 08:10 | XRay Report ---
XR hip RT 1V CLINICAL HISTORY: dislocation, need lateral COMPARISON STUDY: Right hip 03/25/2023. FINDINGS: Single crosstable lateral view of the right hip was submitted for review. There is again no shannan superior dislocation of the right femoral prosthesis. No acute fractures. IMPRESSION: Superior dislocation of the right femoral prosthesis. ACT 112: Negative or not required by law. Electronically signed by: Fish Weber M.D. 03/26/2023 8:09 AM
--- NOTE | 2023-03-26 08:10 | XRay Report ---
XR chest 1V portable HISTORY: Right hip dislocation. pre procedure COMPARISON: Chest 12/28/2021. FINDINGS: The lungs are clear. Cardiac silhouette is normal in size. No pleural effusions. No pneumot horax. Prior cholecystectomy. IMPRESSION: No acute process. ACT 112: Negative or not required by law. Electronically signed by: Fish Weber M.D. 03/26/2023 8:08 AM
--- NOTE | 2023-03-26 08:10 | XRay Report ---
XR hip RT 1V CLINICAL HISTORY: Hip dislocation. Right hip dislocation. COMPARISON STUDY: Pelvis 08/15/2022. FINDINGS: Superior dislocation of the right femoral prosthesis in relation to the acetabular cup. No acute fractures. Mild lateral soft tissue swelling within the right hip. The visualized upper bones a re intact. IMPRESSION: Superior dislocation of the right femoral prosthesis in relation to the acetabular cup ACT 112: Negative or not required by law. Electronically signed by: Fish Weber M.D. 03/26/2023 8:09 AM
--- NOTE | 2023-03-26 08:16 | Operative Report ---
PG Post Operative Report Pre & Post Diagnosis Operation Date: 03/26/23 07:30 Pre-Op Diagnosis: Dislocation of right hip Post-Op Diagnosis: Dislocation of right hip I identified the patient and participated in the time-out.: Yes Procedure Operation Date: 03/26/23 07:30 Actual Procedures p Closed Reduction of Right Hip(Right) - Tonio Simon MD Surgeon Tonio Simon MD National Coverage Specialist none Estimated Blood Loss 0 Findings See Below No significant resistance upon reduction. Hip stable through range of motion. No periprosthetic complication identified on fluoroscopy. Specimens None Anesthesia Type MAC Complications none Disposition Accompanied Patient To Recovery: No Disposition: Recovery Room Indications 62-year-old female admitted last night with a second time right prosthetic hip dislocation. She had failed a closed reduction in the ER under sedation. She was admitted overnight for second attempt today in the operating room. The risks and benefits of a repeat closed reduction were explained to her. She was agreeable to proceed. Informed consent was obtained in the preoperative holding area. Description of Procedure On the day of surgery, the patient was greeted in the preoperative holding area. The informed consent was reviewed and confirmed by myself and the patient. The patient identified the surgical site and was marked by me. The patient was then turned over to anesthesia. She was taken to the operating room, and placed upon the OR table. Anesthesia was induced. Surgical timeout was called by the circulating nurse, and verified by all present. The right affected extremity was shortened and internally rotated. Once there was adequate relaxation, close reduction maneuver was performed. Began with some gentle inline traction and abduction with cyclical flexion extension to unlock the soft tissues. The hip was hyperflexed and maximally internally rotated. We then pulled traction in the flexed position, and there was an audible and palpable reduction pop. The leg lengths became equal. Fluoroscopic imaging was obtained and the prosthetic hip was reduced. The hip was placed in abduction and external rotation, and the reduction maintained. I took it through range of motion and it was smooth. The limb returns equal leg lengths. Repeat fluoroscopy showed reduced hip. Patient was then turned back over to anesthesia for recovery. She was transferred onto her bed after placement of a knee immobilizer. A hip abduction pillow was placed as well. She was then transported to the recovery area in stable condition. Disposition: Patient will remain in inpatient for PT/OT evaluations today. She can go when deemed safe for ambulation. Will proceed as before with a knee immobilizer for all ambulatory activities and while in bed. The hip abduction pillow should be in place as well. I will recommend follow-up with original arthroplasty surgeon. DVT prophylaxis can be aspirin if tolerated. I attest to the content of the Intraoperative Record and any orders documented therein. Any exceptions are noted below.
--- NOTE | 2023-03-26 08:32 | Anesthesiology Progress Note ---
Date of Service March 26, 2023 Anesthesia Post Procedure Vital Signs Vital Signs: Temp Pulse Pulse Pulse Resp BP BP 03/26/23 08:25 36.5 C 71 12 111/76 03/26/23 08:15 67 18 114/69 03/26/23 08:05 36.4 C L 74 17 97/70 L 03/26/23 02:10 36.9 C 69 20 126/79 03/26/23 01:57 78 20 134/84 03/26/23 00:20 90 15 132/83 03/26/23 00:05 82 16 131/76 03/26/23 00:00 76 16 145/87 H 03/25/23 23:55 78 16 144/93 H 03/25/23 23:50 77 16 143/92 H 03/25/23 23:45 92 H 14 164/110 H 03/25/23 23:41 89 15 03/25/23 23:40 90 15 139/88 03/25/23 23:38 86 16 151/90 H 03/25/23 23:36 87 16 03/25/23 23:32 89 17 154/102 H 03/25/23 23:09 90 03/25/23 23:09 92 H 17 145/106 H 03/25/23 22:46 03/25/23 21:32 36.4 C L 76 20 173/102 H Pulse Ox O2 Del Method O2 Flow Rate 03/26/23 08:25 98 Nasal Cannula 2 03/26/23 08:15 96 Oxymask 4 03/26/23 08:05 98 Oxymask 4 03/26/23 02:10 95 Room Air 03/26/23 01:57 97 Room Air 03/26/23 00:20 95 Room Air 03/26/23 00:05 98 Room Air 03/26/23 00:00 100 Nasal Cannula 2 03/25/23 23:55 100 Nasal Cannula 4 03/25/23 23:50 100 Nasal Cannula 4 03/25/23 23:45 94 Nasal Cannula 4 03/25/23 23:41 96 Nasal Cannula 4 03/25/23 23:40 100 Nasal Cannula 4 03/25/23 23:38 100 Nasal Cannula 4 03/25/23 23:36 98 Nasal Cannula 2 03/25/23 23:32 100 Nasal Cannula 2 03/25/23 23:09 03/25/23 23:09 100 Nasal Cannula 2 03/25/23 22:46 98 Nasal Cannula 2 03/25/23 21:32 99 Room Air Pain Intensity Right Hip: Pain Intensity: 7 Transfer of Care Handoff Completed per policy Notes Mental Status: alert / awake / arousable Patient Amnestic to Procedure: Yes Nausea / Vomiting: adequately controlled Pain: adequately controlled Airway Patency, RR, SpO2: stable & adequate BP & HR: stable & adequate Hydration State: stable & adequate Anesthetic Complications: no major complications apparent and Pt Satisfied with anesthetic care
--- NOTE | 2023-03-26 09:04 | XRay Report ---
XR hip 1V RT w pelvis CLINICAL HISTORY: IN PACU - Post Surgical. Post right hip reduction. COMPARISON STUDY: Right hip 03/25/2023. FINDINGS: Status post reduction of the right femoral prosthesis dislocation. Alignment is anatomic. T he hardware is intact. No acute fracture or dislocation within the pelvis or hips. IMPRESSION: Status post reduction of the right femoral prosthesis dislocation. Alignment is now violetta omic. ACT 112: Negative or not required by law. Electronically signed by: Fish Weber M.D. 03/26/2023 9:03 AM
--- NOTE | 2023-03-26 09:04 | Fluoroscopy Report ---
FL hip RT 2-3V CLINICAL HISTORY: CLOSED REDUCTION RT HIP COMPARISON STUDY: Right hip 03/25/2023. FLUOROSCOPY TIME: 3 seconds FLUOROSCOPY IMAGES: 2 Ka,r: 1.5 mGy FINDINGS: Status post reduction of the right femoral prosthesis dislocation. Alignment is anatomic. N o acute fractures. IMPRESSION: Fluoroscopic assistance as above. ACT 112: Negative or not required by law. Electronically signed by: Fish Weber M.D. 03/26/2023 9:02 AM
--- NOTE | 2023-03-26 09:11 | Orthopedic Progress Note ---
Date of Service March 26, 2023 Assessment & Plan (1) Dislocation of hip joint prosthesis: Plan The plan will be to recover from the 2 episodes of procedural sedation. She may discharge home with good pain control, after evaluation by Physical and Occupational Therapy. - PT/OT: Weightbearing as tolerated to the bilateral lower extremities. Should use a walker for all ambulatory activities until follow-up. Recommend knee immobilizer in place for all ambulatory activities. She can take careful breaks with the knee immobilizer when resting. Knee immobilizer should be in place for sleep. Hip abduction pillow should be in place when resting in bed. Reeducated on posterior hip precautions. May be seated with hip abduction and elevated chair to avoid hip flexion past 90 degrees. - Discharge needs: Walker, Elevated toilet seat - may have from previous surgery. - Routine pain management - No perioperative antibiotics required - VTE prophylaxis should be daily aspirin until follow-up. I discussed her and Jerzy that her follow-up should occur within 1 to 2 weeks with [facility] orthoped[facility] and Dr. Martinez. I will send an update message to him. Subjective Patient seen after the procedure and the recovery. I also spoke with her significant other, Eron, by phone. Patient remains somnolent from the long night and anesthesia. Pain seems tolerable per the nurses. Her significant other said she had use a hip abduction brace after her last episode. They are not sure where it was right away. He does remember some difficulty using it. Janet was happy and thankful that the hip was reduced and agreed she needs to rest and food. Review of Systems All systems reviewed & are unremarkable except as noted in HPI & below. Physical Exam RLE: Leg lengths are now equal. Positive DF/PF/EHL. Sensation grossly intact to light touch throughout. Hip abduction pillow in place. Knee immobilizer secured. Constitutional WD/WN, vitals as above no acute distress and not intoxicated appearing Respiratory normal respiratory effort; no labored breathing Cardiovascular Extremities: normal capillary refill Results & Data Results & Data Laboratory Results . Diagnostic Findings X-rays after procedure include AP pelvis and crosstable lateral of the hip. These show concentric reduction. No periprosthetic fractures or other complication. PG Care Time/CCT Total # of Minutes Spent Total Time Spent with Patient: Total time spent is greater than 50% in coordination of care (as documented) at patient's floor/unit and/or counseling patient: Coding Level of Care Code 51366 Post Operative Follow-Up Diagnoses Dislocation of hip joint prosthesis T84.029A; Z96.649
[2023-03-26] MEDS ORDERED: bisacodyL 10 MG SUPP PR PRN (09:13)
[2023-03-26] MEDS ORDERED: MAGNESIUM HYDROXIDE SUSP 30 ML UDC PO PRN (09:13)
[2023-03-26] MEDS ORDERED: NALOXONE HCL 0.4 MG/1 ML VIAL/CARP IV PRN (09:13)
[2023-03-26] MEDS ORDERED: DOCUSATE SODIUM 100 MG CAP PO SCH (09:13)
[2023-03-26] MEDS ORDERED: ASPIRIN 325 MG ECTAB PO SCH (09:30)
[2023-03-26] MEDS: oxyCODONE HCL IR 5 MG TAB (IMMEDIATE RELEASE) PO PRN ×2 (10:31→11:12)
[2023-03-26] MEDS: SODIUM CHLORIDE 0.9% 1,000 ML IV SCH ×2 (11:03→11:24)
--- NOTE | 2023-03-26 11:17 | Orthopedic Progress Note ---
Date of Service March 26, 2023 Assessment & Plan (1) Dislocation of right hip: Plan I saw him this morning in her bed following her closed reduction. She reports her hip is sore, she believes more sore than after the first time she dislocated it. I reviewed her x-rays that showed a posterior hip dislocation followed by an anatomic reduction. Her hardware appears to be in good position. She was squatting down with her hip flexed well beyond 90 degrees sitting on a low stool when she tried to get up that caused the hip to dislocate. She has a 50 mm diameter cup and a [address] I talked her about the possibility of revising her to a dual mobility component given that this is now her second dislocation. She is going to think this over. This would be elective surgery and there would be no urgency to completing this. In the meantime she can switch from her knee immobilizer back to the hip brace that she received after her first dislocation that she has at home. Hip flexion setting should be at 90 degrees. She will contact our clinic to set up a follow-up appoint with me after discharge. Admission and Anticipated Discharge Date Admission Date: March 26, 2023 Results & Data Vital Signs (Past 12 Hours) Vital Signs Temp Pulse Pulse Pulse Resp BP BP 03/26/23 10:37 67 16 158/85 H 03/26/23 09:35 57 L 16 141/80 H 03/26/23 08:45 62 16 132/86 03/26/23 08:35 60 18 127/78 03/26/23 08:25 36.5 C 71 12 111/76 03/26/23 08:15 67 18 114/69 03/26/23 08:05 36.4 C L 74 17 97/70 L 03/26/23 02:10 36.9 C 69 20 126/79 03/26/23 01:57 78 20 134/84 03/26/23 00:20 90 15 132/83 03/26/23 00:05 82 16 131/76 03/26/23 00:00 76 16 145/87 H 03/25/23 23:55 78 16 144/93 H 03/25/23 23:50 77 16 143/92 H 03/25/23 23:45 92 H 14 164/110 H 03/25/23 23:41 89 15 03/25/23 23:40 90 15 139/88 03/25/23 23:38 86 16 151/90 H 03/25/23 23:36 87 16 03/25/23 23:32 89 17 154/102 H Pulse Ox O2 Del Method O2 Flow Rate 03/26/23 10:37 97 Room Air 03/26/23 09:35 97 Nasal Cannula 2 03/26/23 08:45 97 Nasal Cannula 2 03/26/23 08:35 97 Nasal Cannula 2 03/26/23 08:25 98 Nasal Cannula 2 03/26/23 08:15 96 Oxymask 4 03/26/23 08:05 98 Oxymask 4 03/26/23 02:10 95 Room Air 03/26/23 01:57 97 Room Air 03/26/23 00:20 95 Room Air 03/26/23 00:05 98 Room Air 03/26/23 00:00 100 Nasal Cannula 2 03/25/23 23:55 100 Nasal Cannula 4 03/25/23 23:50 100 Nasal Cannula 4 03/25/23 23:45 94 Nasal Cannula 4 03/25/23 23:41 96 Nasal Cannula 4 03/25/23 23:40 100 Nasal Cannula 4 03/25/23 23:38 100 Nasal Cannula 4 03/25/23 23:36 98 Nasal Cannula 2 03/25/23 23:32 100 Nasal Cannula 2 (1) Dislocation of right hip Encounter type: initial encounter Qualified Code(s): S73.004A - Unspecified dislocation of right hip, initial encounter
--- NOTE | 2023-03-26 12:35 | Discharge Summary ---
Date of Service March 26, 2023 Admission HPI Per Admitting Provider 62-year-old female with past med history significant for anxiety, history of right hip total arthroplasty comes because of right hip dislocation. Patient states she was sitting around round table and playing cards. When she tried to get up she suddenly noticed that she dislocated right hip. Came to the ER. ER tried to reduce the hip but were unsuccessful. Ortho is going to do the reduction of the hip in the morning. Patient has pain at the right hip dislocation site. States currently not able to micturate. Denies any headache. No blurred visions. No earache or runny nose or sore throat. No cough. No fevers. Earlier because of her anxiety attack had chest pain but that got resolved now. Patient says whenever she is anxious she gets chest pains. Denies shortness of breath. No nausea. No abdominal pain. Hemodynamically stable. She has a history of right hip dislocation in August 2022 and at that time also it was reduced by the orthopedics. Admission Exam Per Admitting Provider General- Not in distress Head- atraumatic Eyes- PERRL. ENT- oropharynx clear Neck- supple, no JVD. Lungs- clear to auscultation no wheezing or crackles. Heart- regular rhythm; no murmur, no gallop. Abdomen- normal bowel sounds, soft, nontender, no distension. Extremities- no pretibial edema, right lower extremity shortened and externally rotated Neuro- alert, oriented x 3; PERRL, ; no facial palsy; no dysarthria. Skin- warm & dry Principal Diagnosis Right hip dislocation Discharge Exam General- WD/WN F in NAD Head- atraumatic Eyes- PERRL. ENT- oropharynx clear Neck- supple, no JVD. Lungs- clear to auscultation no wheezing or crackles. Heart- regular rhythm; no murmur, no gallop. Abdomen- normal bowel sounds, soft, nontender, no distension. Extremities- no pretibial edema, right lower extremity in brace, + ice pack applied Neuro- alert, oriented x 3; PERRL, ; no facial asymmetry, speech fluent, moves extremities Skin- warm & dry Discharge Data Allergies Allergy/AdvReac Type Severity Reaction Status Date / Time doxycycline AdvReac Intermediate CAN'T Verified 03/25/23 23:10 FUNCTION, CAN'T TALK Consultations 03/26/23 00:40 ED Decision to Admit Stat 03/26/23 08:00 Consult Orthopedic Surgery Routine Procedures Performed Operation Date: 03/26/23 07:30 Actual Procedures p Closed Reduction of Right Hip(Right) - Tonio Simon MD Ordered Studies 03/26/23 07:30 FL hip RT 2-3V Routine Hospital Course (1) Dislocation of right hip: 62-year-old female with past med history significant for anxiety, history of right hip total arthroplasty comes because of right hip dislocation. Patient states she was sitting around round table and playing cards. When she tried to get up she suddenly noticed that she dislocated right hip. Came to the ER. ER tried to reduce the hip but were unsuccessful. Ortho is going to do the reduction of the hip in the morning. Patient has pain at the right hip dislocation site. States currently not able to micturate. Denies any headache. No blurred visions. No earache or runny nose or sore throat. No cough. No fevers. Earlier because of her anxiety attack had chest pain but that got resolved now. Patient says whenever she is anxious she gets chest pains. Denies shortness of breath. No nausea. No abdominal pain. Hemodynamically stable. She has a history of right hip dislocation in August 2022 and at that time also it was reduced by the orthopedics. Right hip dislocation, now s/p R hip closed reduction Could not be reduced in the ER Reduction by Orthopedics in OR DVT prophylaxis - ASA 325 - per orthopedics Per ortho - Dr. Barcenas - I reviewed her x-rays that showed a posterior hip dislocation followed by an anatomic reduction. Her hardware appears to be in good position. She was squatting down with her hip flexed well beyond 90 degrees sitting on a low stool when she tried to get up that caused the hip to dislocate. She has a 50 mm diameter cup and a [address] I talked her about the possibility of revising her to a dual mobility component given that this is now her second dislocation. She is going to think this over. This would be elective surgery and there would be no urgency to completing this. In the meantime she can switch from her knee immobilizer back to the hip brace that she received after her first dislocation that she has at home. Hip flexion setting should be at 90 degrees. She will contact our clinic to set up a follow-up appoint with me after discharge. Total Time Total Time Spent Total Time Spent (In Minutes): 40 Discharge Plan Discharge Items Patient Disposition: Home - Self-Care Reason For Visit: RIGHT HIP DISLOCATION Discharge Diagnosis: Right hip dislocation Condition on Discharge: Fair Activity: Per Instructions section Non-emergency contact: Primary Care Provider and Surgeon Call non-emergency contact if: you have any medication questions and your pain is not controlled Follow-up/Referrals: Henrry Barcenas MD [Physician] - (1-2 weeks from discharge) Gabriel Bowers MD [Primary Care Provider] - Diet: Regular Addtl Attending Provider Instructions: ORTHOPEDIC INSTRUCTIONS Please use the walker/crutches whenever walking or upright until further instructions in clinic. Please keep the knee immobilizer in place when walking or standing and while in bed. You may carefully bend your knee while seated, but do not flex the hip past 90 degrees - no deep seats. Please respect the posterior hip precautions and home safety instructions taught to you by therapy and outlined in the discharge handouts. Contact [facility] for followup this week. Recommend Aspirin 325mg daily for 6 weeks or until you return to regular activities. Pending Studies at Discharge: No Stand-Alone Forms: My [employer], Smoking Cessation Medications and DC Order Prescriptions: New aspirin [Ecotrin] 325 mg Tablet,Delayed Release (Dr/Ec) 325 mg PO DAILY Qty: 30 0RF Rx Instructions: take with food docusate sodium 100 mg Capsule 100 mg PO BID Qty: 14 0RF oxycodone 5 mg Tablet 5 mg PO Q4H PRN (Reason: pain) Qty: 10 0RF Continued alprazolam [Xanax] 0.5 mg Tablet 0.5 mg PO BID PRN (Reason: Anxiety) alfalfa 650 mg Tablet 650 mg PO QAM Collagen Plus Vitamin C 125-740 mg Capsule 1 cap PO QAM Bone Broth 2 cap PO QAM [place] 1 cap PO QAM Patient Comments: SUPER FOOD SUPPLEMENT Turmeric Powder 1 dose PO QAM Plant Calcium Otc 2 tab PO QAM Multi Collagen Otc 2 tab PO QAM Kidney Tincture Otc 1 dose PO QAM Lymphatic Tincture Otc 1 dose PO QAM Adrenal Tincture Otc 1 dose PO UD Rx Instructions: 2 days per week Hair Plus Tincture Otc 1 dose PO QAM Liver Gall Bladder Tincture Otc 1 dose PO QAM omega-3 fatty acids 1,000 mg Capsule 1,000 mg PO DAILY ascorbic acid (vitamin C) [Vitamin C] 500 mg Tablet 500 mg PO DAILY Discharge Orders: Discharge Order (Routine); Ordered 03/26/23 Ordered By: Xavi Devries/Other Patient Handouts: Hip Precautions, Hip Safety: Sleeping Positions, After Hip Replacement: Home Safety Admission Data Admit Date/Time: 03/26/23 01:25 Attending Provider: Xavi Shannon Admit Provider: Edouard Alexandre Primary Care Provider: Gabriel Bowers Other Providers: Edouard Alexandre; Henrry Kevin
[2023-03-26] MEDS ORDERED: SENNA 8.6 MG TAB PO SCH (21:00)
== END 2023-03-26 15:00 | disposition home or self-care (01) | DRG 561 ==
LOC: ED 21:22 → 3E 03-26 01:25

== ENCOUNTER 2024-02-21 20:05 | Inpatient (IN) ==
[2024-02-21] MEDS: fentaNYL citrate PF 100 MCG/2 ML VIAL IV STA ×2 (20:34→21:58)
[2024-02-21] MEDS: HYDROmorphone INJ 1 MG/ML SYRINGE IV STA (21:14)
--- NOTE | 2024-02-21 21:21 | Emergency Department Note ---
Impression & Plan Dislocation of right hip ED Provider Note HISTORY OF PRESENT ILLNESS: Patient is a 63-year-old female presenting with right hip pain. Patient reports she bent over to pick something off the ground when she felt a pop and pain in her right hip. She had a previous right hip placement with Dr. Mejia in 2020. Reports that she has dislocated twice before. Reports that her first dislocation was successfully reduced under conscious sedation. Reports that her last dislocation, which was 1 year ago, was unsuccessfully reduced under conscious sedation and required her going to the OR. She currently is complaining of 10 out of 10 pain in the right hip. Denies any injury to the hip. Denies any chest pain or shortness of breath. Patient reports last p.o. intake was at 1800 in which she had a few bites of pizza and a drink of water. ROS: as above PHYSICAL EXAM: Constitutional: Patient appears in no acute distress. HENT: Head: Normocephalic and atraumatic. Eyes: EOMI, PERRL Mouth/Throat: Mucous membranes moist. Neck: Trachea midline. Neck supple. Cardiovascular: RRR, No murmurs, rubs or gallops. Intact distal pulses. Pulmonary/Chest: No respiratory distress. Breath sounds clear and equal bilaterally. No wheezes or rales. Abdominal: Abdomen soft, no tenderness, rebound or guarding. Musculoskeletal: - RLE: Right hip is shortened and internally rotated. Patient is able to wiggle toes. Tender to palpation along the lateral hip. Sensation intact to light touch about the nerve distributions of the leg. Intact DP and PT pulses. Skin: Warm and dry. No rash, erythema, pallor or cyanosis Psychiatric: Appropriate mood and affect for situation. Neurological: Alert and keenly responsive. CN II-XII grossly intact, moving all extremities equally and fully. MDM: - Vitals signs showed hypertension - History obtained via patient. History as above. - Chronic conditions affecting care: anxiety - Differential diagnoses include, but are not limited to: Dislocated hip; femur fracture; periprosthetic fracture; contusion - Order placed for continuous cardiac monitoring. At this time, monitor showed rate of 75 bpm with normal sinus rhythm, per my interpretation. - External medical records reviewed. - Pelvic xray showed posterior right femur dislocation, per my interpretation. - Patient reports that during her previous conscious sedation she was unsuccessfully reduced and had to be taken to the operating room. Given this history, did consult the orthopedist on-call, Dr. Hughes, at 0. He came into attempt the reduction of the dislocated right hip arthroplasty while I did the conscious sedation. - I discussed risks and benefits associated with conscious sedation with patient. Discussion of risks including but not limited to hypotension (low blood pressure), medication reaction and deep sedation requiring airway management i.e. intubation (breathing tube) discussed at length with the patient. Other potential treatment options including IV pain medication and proceeding without sedation discussed with the patient. Patient voiced understanding of associated risks with conscious sedation and consented to sedation. Patient was capable of medical decision making and verbally consented to procedure and conscious sedation. - I discussed the risks of fracture/dislocation reduction including but not limited to worsening of displacement of fracture, development of compartment syndrome, venous and arterial injury, ligamentous injury, injury to the overlying skin, associated pain (acute and chronic), etc. Benefits of fracture/dislocation reduction include better alignment, improvement of pain, and mobility. Other treatment options discussed with patient including no attempts at reduction were consulting orthopedic service for reduction. Patient voiced understanding of risks and benefits, of the procedure. Patient consented to the procedure to be performed by me. Patient capable of medical decision making. - Patient was given a total of 140 mg IV propofol for conscious sedation and 25 mcg IV fentanyl during procedure. She did become hypoxic down to 71% on nasal cannula and had to have a [id number]-rdahu-[id number] ventilation performed for about 30 seconds with improvement in her oxygenation. - Unsuccessful at reduction of the patient's right hip arthroplastic dislocation. Dr. Hughes recommended admission to medicine with plan for patient to go to the operating room with Dr. Martinez in the a.m. for reduction. - Laboratory workup and EKG obtained for pre-op. - Laboratroy workup interpreted by myself showed normal WBC; stable electrolytes - EKG interpreted by myself showed normal sinus rhythm. Rate 65 bpm. QT 436. No acute ischemic changes. - Discussion was had with cyanide case hardener about patient's case and need for admission - Hospitalist, Dr. Scherer, consulted for admission - Patient admitted to [facility] service for further evaluation and management. Procedure: Procedural sedation Indication: dislocated R hip. Total time: 10 minutes. Written consent was obtained after the risks and benefits were explained to the patient, including, but not limited to aspiration, allergic reaction, breathing difficulties, cardiac complications, vomiting, pain, event recall, bleeding, and/or infection. Pre-sedation examination and paperwork completed. The patient was on 4L NC to the procedure. Continuos end tidal CO2 monitoring, pulse oximetry, and cardiac monitoring were utilized. Suction, airway equipment, medications, respiratory equipment, and appropriate personnel were prepared prior to the initiation of the procedure. A time out was taken. Sedation was achieved utilizing 140 mg mg of propofol. After I observed the patient had reached the appropriate level of sedation the main procedure was performed. Patient did have an episode of desaturation as noted above that required [id number] ventilation. She quickly recovered and sedation was discontinued and the monitoring continued. The patient recovered quickly from the effects of the medication without complication or adverse event. ASSESSMENT AND PLAN: Diagnosis: Dislocation of right hip Plan: admit Past Med/Surg History Problem List (Updated 02/21/24 @ 23:56 by Robyn Alfaro MD) Dislocation of right hip (Acute) Dislocation of right hip (Acute) Dislocation of right hip (Acute) Acute right hip pain (Acute) Dislocation of hip joint prosthesis Lipoma of arm S/P total hip arthroplasty Osteoarthritis of right hip Lumbosacral radiculopathy Partial tear of rotator cuff Encounter for pre-operative examination Head injury (Acute) Face lacerations (Acute) Closed head injury (Acute) Anxiety (Chronic) Medical History (Updated 02/21/24 @ 23:56 by Robyn Alfaro MD) Hx of diverticulitis of colon "a few months ago" no hospitalizations - no issues currently Heart burn History of reduction of closed dislocation (03/26/23) [facility] Right Hip Migraines "maybe twice a year - no pain involved" Snoring no sleep study Leukopenia Chronic, PCP aware/monitoring History of COVID-19 Early 10/2021, runny nose, DUMONT > resolved Post traumatic stress disorder Anxiety and depression Occasional panic attacks - prn xanax History of restless legs syndrome with Lyme disease Hx of Lyme disease Blood clot in vein 20+ years ago Right calf () Heart palpitations Rare occurrences x years - "it is getting A LOT better with accupuncture" Surgical History S/P excision of lipoma (01/07/22) Excision Recurrent Lipoma Left Upper Extremity(Left) 6 cm x 3 cm - Ashok Carter MD, FACS History of total right hip replacement 08/2021 [facility] - 03/2023 "it came out of the socket" [facility] H/O excision of mass Left upper arm by a Granular Operator [facility] Dr. Dany Dumont Lipoma History of arthroscopy of right shoulder 05/10/20: Grade 2 view, MAC 3 ETT 7.5 + PNB. No postop issues per anesthesia progress note. Hx of gynecological procedure Vaginal reconstruction and bladder tack/mesh Nausea and vomiting after administration of anesthetic agent "I always get medicated" History of hysterectomy H/O foot surgery Left History of hemorrhoidectomy History of esophagogastroduodenoscopy (EGD) History of colonoscopy History of cholecystectomy H/O eye surgery Left eye titanium shelf placed after "cracking orbit" [facility] Family History Aunt Family history of diabetes mellitus Other No family history of adverse response to anesthesia Social History Smoking Status: Never smoker Tobacco Type: Cigarettes Cigarettes Per Day: 5 CIGS A WEEK-NPO; Second Hand Exposure: No; Do You Dip or Chew Tobacco: No; Hx Alcohol Use: Yes Alcohol type: hard liquor Alcohol Intake Frequency: Monthly or Less Hx Substance Use: No Preferred Language: Cymraes Communication Ability: Effective Visual Impairment: No Limitations Can Closing Machine Operator Required: No Beliefs That Will Affect Care: None marital status: Current Living Situation: Spouse Current Living Situation Comment: lives in 2 story home with significant other current occupational status: unemployed How many Children do You have: 2 Feels Safe at Home: Yes Diet: Atkins during the past year weight has: decreased > 10 lbs Assistive Devices: Glasses Allergies Allergies Allergy/AdvReac Type Severity Reaction Status Date / Time adhesive tape Allergy Intermediate Burning Verified 02/15/24 08:12 doxycycline AdvReac Severe "Can't Verified 02/15/24 08:12 function, can't talk. I felt numb" ciprofloxacin AdvReac Intermediate Irregeular Verified 02/15/24 08:12 heart beat, extreme dizziness metronidazole AdvReac Intermediate Irregeular Verified 02/15/24 08:12 heart beat, extreme dizziness Home Meds Home Medications Medication Instructions Recorded Confirmed Bone Broth 2 cap PO QAM 05/06/20 02/15/24 Turmeric Powder 1 cap PO QAM 05/06/20 02/15/24 alprazolam 0.5 mg tablet (Xanax) 0.5 mg PO BID PRN Anxiety 05/06/20 02/15/24 ascorbic acid 125 mg-collagen, 1 cap PO QAM 05/06/20 02/15/24 hydrolyzed 740 mg capsule (Collagen Plus Vitamin C) Adrenal Tincture Otc 1 dose PO UD 07/10/21 02/15/24 Hair Plus Tincture Otc 1 dose PO QAM 07/10/21 02/15/24 Kidney Tincture Otc 1 dose PO WK 07/10/21 02/15/24 Liver Gall Bladder Tincture Otc 1 dose PO WK 07/10/21 02/15/24 Lymphatic Tincture Otc 1 dose PO QAM 07/10/21 02/15/24 ascorbic acid (vitamin C) 500 mg 500 mg PO DAILY 03/25/23 02/15/24 tablet (Vitamin C) omega-3 fatty acids 1,000 mg 1,000 mg PO WK 03/25/23 02/15/24 capsule vitamin D3-vitamin K2 1 cap PO DAILY 02/15/24 02/15/24 Previous Rx's Medication Instructions Recorded peg 3350-sod [id number] See Rx Instructions PO .COMPLEX #2 02/17/24 178.7-7.3-0.5-1.12-0.9 gram oral mL soln (Suflave) Results & Data (ED) Vital Signs Vital Signs - 24 hr 02/21/24 20:21 02/21/24 20:32 02/21/24 21:00 Temperature 36.7 C Temperature Source Oral Pulse Rate 87 83 89 Pulse Rate [Apical] Pulse Rate from SpO2 Sensor 87 Respiratory Rate 16 17 Respiratory Effort / Characteristics Non-Labored Spontaneous Respiratory Depth Normal Respiratory Pattern Blood Pressure 165/90 H 146/86 H Blood Pressure [Left Arm] Blood Pressure Mean 115 106 Blood Pressure Mean [Left Arm] Pulse Oximetry 100 100 Oxygen Delivery Method Room Air Room Air Oxygen Flow Rate Sepsis Recent Fever Within 48 Hours No Sepsis New/Unexplained Change in Mental Status N/A Sepsis Action Taken by Nursing No Action Required End-Tidal CO2 02/21/24 21:15 02/21/24 21:15 02/21/24 21:20 Temperature Temperature Source Pulse Rate Pulse Rate [Apical] Pulse Rate from SpO2 Sensor Respiratory Rate Respiratory Effort / Characteristics Respiratory Depth Respiratory Pattern Blood Pressure 146/104 H 146/104 H 133/79 Blood Pressure [Left Arm] Blood Pressure Mean 122 122 94 Blood Pressure Mean [Left Arm] Pulse Oximetry Oxygen Delivery Method Oxygen Flow Rate Sepsis Recent Fever Within 48 Hours Sepsis New/Unexplained Change in Mental Status Sepsis Action Taken by Nursing End-Tidal CO2 02/21/24 21:20 02/21/24 21:21 02/21/24 21:35 Temperature Temperature Source Pulse Rate 80 75 Pulse Rate [Apical] Pulse Rate from SpO2 Sensor 81 Respiratory Rate Respiratory Effort / Characteristics Respiratory Depth Respiratory Pattern Blood Pressure 133/79 158/84 H Blood Pressure [Left Arm] Blood Pressure Mean 94 99 Blood Pressure Mean [Left Arm] Pulse Oximetry 99 100 Oxygen Delivery Method Room Air Room Air Oxygen Flow Rate Sepsis Recent Fever Within 48 Hours Sepsis New/Unexplained Change in Mental Status Sepsis Action Taken by Nursing End-Tidal CO2 02/21/24 21:46 02/21/24 21:50 02/21/24 21:55 Temperature Temperature Source Pulse Rate 86 75 83 Pulse Rate [Apical] Pulse Rate from SpO2 Sensor Respiratory Rate 16 16 14 Respiratory Effort / Characteristics Respiratory Depth Respiratory Pattern Blood Pressure 145/90 H 165/88 H 155/100 H Blood Pressure [Left Arm] Blood Pressure Mean 102 113 103 Blood Pressure Mean [Left Arm] Pulse Oximetry 99 98 100 Oxygen Delivery Method Room Air Room Air Nasal Cannula Oxygen Flow Rate 6 Sepsis Recent Fever Within 48 Hours Sepsis New/Unexplained Change in Mental Status Sepsis Action Taken by Nursing End-Tidal CO2 40 38 02/21/24 22:00 02/21/24 22:05 02/21/24 22:15 Temperature Temperature Source Pulse Rate 74 Pulse Rate [Apical] 90 72 Pulse Rate from SpO2 Sensor Respiratory Rate 12 12 12 Respiratory Effort / Characteristics Respiratory Depth Respiratory Pattern Blood Pressure 154/86 H Blood Pressure [Left Arm] 154/106 H 132/105 H Blood Pressure Mean 104 Blood Pressure Mean [Left Arm] 122 114 Pulse Oximetry 71 L 99 100 Oxygen Delivery Method Ambu-Bag Nasal Cannula Nasal Cannula Oxygen Flow Rate 15 6 6 Sepsis Recent Fever Within 48 Hours Sepsis New/Unexplained Change in Mental Status Sepsis Action Taken by Nursing End-Tidal CO2 38 44 02/21/24 22:20 02/21/24 22:25 02/21/24 22:30 Temperature Temperature Source Pulse Rate Pulse Rate [Apical] 69 75 77 Pulse Rate from SpO2 Sensor Respiratory Rate 12 12 14 Respiratory Effort / Characteristics Respiratory Depth Respiratory Pattern Blood Pressure Blood Pressure [Left Arm] 135/78 129/82 137/82 Blood Pressure Mean Blood Pressure Mean [Left Arm] 97 97 100 Pulse Oximetry 93 100 97 Oxygen Delivery Method Nasal Cannula Room Air Room Air Oxygen Flow Rate 3 Sepsis Recent Fever Within 48 Hours Sepsis New/Unexplained Change in Mental Status Sepsis Action Taken by Nursing End-Tidal CO2 45 41 41 02/21/24 22:35 Temperature Temperature Source Pulse Rate Pulse Rate [Apical] 70 Pulse Rate from SpO2 Sensor Respiratory Rate 12 Respiratory Effort / Characteristics Non-Labored Respiratory Depth Normal Respiratory Pattern Regular Blood Pressure Blood Pressure [Left Arm] 118/68 Blood Pressure Mean Blood Pressure Mean [Left Arm] 84 Pulse Oximetry 92 Oxygen Delivery Method Room Air Oxygen Flow Rate Sepsis Recent Fever Within 48 Hours Sepsis New/Unexplained Change in Mental Status Sepsis Action Taken by Nursing End-Tidal CO2 41 Laboratory Data 02/21/24 23:04 02/21/24 23:04 Lab Results 02/21/24 Range/Units 23:04 WBC 5.24 (4.8-10.8) K/ul RBC 4.23 (4.20-5.40) M/uL Hgb 13.8 (12.0-16.0) g/dl Hct 39.8 (37.0-47.0) % MCV 94.1 (80.0-100.0) fL MCH 32.6 (25.0-34.0) pg MCHC 34.7 (32.0-36.0) g/dL RDW Std Deviation 43.7 (36.4-46.3) fL RDW Coeff of Thomas 12.7 (11.5-14.5) % Plt Count 233 (130-400) K/uL MPV 8.8 L (9.4-12.4) fL Immature Gran % (Auto) 0.2 % Neut % (Auto) 62.7 % Lymph % (Auto) 30.2 % Powell % (Auto) 6.5 % Eos % (Auto) 0.2 % Baso % (Auto) 0.2 % Neut # (Auto) 3.29 (1.40-6.50) K/uL Lymph # (Auto) 1.58 (1.20-3.40) K/uL Powell # (Auto) 0.34 (0.11-0.59) K/uL Eos # (Auto) 0.01 (0.00-0.50) K/uL Baso # (Auto) 0.01 (0.00-0.20) K/uL Immature Gran # (Auto) 0.01 (0.01-0.20) K/uL Sodium 135 L (136-145) mmol/L Potassium 3.7 (3.5-5.1) mmol/L Chloride 102 (98-107) mmol/L Carbon Dioxide 23 (21-32) mmol/L Anion Gap 10 (3-11) BUN 11 (6-23) mg/dl Creatinine 0.43 L (0.6-1.2) mg/dl Est Cr Clr Drug Dosing 122.1 ml/min eGFR 108.54 BUN/Creatinine Ratio 25.6 H (10-20) Glucose 86 (70-99(Fasting)) mg/dl Calcium 9.7 (8.6-10.3) mg/dl Total Bilirubin 0.4 (0.2-1.0) mg/dl AST 19 (13-39) U/L ALT 21 (7-52) U/L Alkaline Phosphatase 52 (34-104) U/L Troponin I High Sens 11.8 (0-14) pg/ml Total Protein 6.9 (6.0-8.3) gm/dl Albumin 4.3 (3.4-5.0) gm/dl Globulin 2.6 (2.5-4.0) gm/dl Albumin/Globulin Ratio 1.7 (0.9-2) Administered Medications Discontinued Medications Fentanyl Citrate (Fentanyl Citrate Pf 100 Mcg/2 Ml Vial) 50 mcg IV NOW STA Stop: 02/21/24 20:29 Last Admin: 02/21/24 20:34 Dose: 50 mcg Documented By: [facility] Fentanyl Citrate (Fentanyl Citrate Pf 100 Mcg/2 Ml Vial) 50 mcg IV NOW STA Stop: 02/21/24 21:49 Last Admin: 02/21/24 21:58 Dose: 25 mcg Documented By: [facility] Hydromorphone HCl (Hydromorphone Inj 1 Mg/Ml Syringe) 1 mg IV NOW STA Stop: 02/21/24 21:02 Last Admin: 02/21/24 21:14 Dose: 1 mg Documented By: [facility] Ketamine HCl (Ketamine Hcl 10mg/Ml Syr) Confirm Administered Dose 150 mg .ROUTE .STK-MED ONE Stop: 02/21/24 22:00 Last Admin: 02/21/24 22:11 Dose: Not Given Documented By: LUCAS Propofol (Propofol Iv Emulsion 10 Mg/Ml 20 Ml Vial) 35 mg IV NOW STA Stop: 02/21/24 21:49 Last Admin: 02/21/24 21:54 Dose: 35 mg Documented By: [id number] Co-signed By: ZEINA Propofol (Propofol Iv Emulsion 10 Mg/Ml 20 Ml Vial) 35 mg IV NOW STA Stop: 02/21/24 21:50 Last Admin: 02/21/24 21:55 Dose: 35 mg Documented By: [id number] Co-signed By: [facility] Propofol (Propofol Iv Emulsion 10 Mg/Ml 20 Ml Vial) Confirm Administered Dose 200 mg IV .STK-MED ONE Stop: 02/21/24 21:50 Last Admin: 02/21/24 22:43 Dose: Not Given Documented By: JOSSY Propofol (Propofol Iv Emulsion 10 Mg/Ml 20 Ml Vial) 35 mg IV NOW STA Stop: 02/21/24 23:05 Last Admin: 02/21/24 21:56 Dose: 35 mg Documented By: [id number] Co-signed By: ZEINA Propofol (Propofol Iv Emulsion 10 Mg/Ml 20 Ml Vial) 35 mg IV NOW STA Stop: 02/21/24 23:06 Last Admin: 02/21/24 21:57 Dose: 35 mg Documented By: [id number] Co-signed By: [facility] Discharge Plan Visit Data Chief Complaint: Hip Pain Stated Complaint: Hip Pain ED Provider: Robyn Alfaro Discharge Problem: Dislocation of right hip Forms Stand Alone Forms: My [facility] [place] [facility] Prescriptions Prescriptions: No Action Suflave 178.7-7.3-0.5 gram recon soln See Rx Instructions PO .COMPLEX Qty: 2 0RF Rx Instructions: orally; orally; TAKE FIRST DOSE AT 6 PM AND SECOND DOSE 6 HOURS PRIOR TO PROCEDURE BIN: [id number] [facility]: 2000 GROUP: [id number] alprazolam [Xanax] 0.5 mg Tablet 0.5 mg PO BID PRN (Reason: Anxiety) Collagen Plus Vitamin C 125-740 mg Capsule 1 cap PO QAM Bone Broth 2 cap PO QAM Turmeric Powder 1 cap PO QAM Kidney Tincture Otc 1 dose PO WK Lymphatic Tincture Otc 1 dose PO QAM Adrenal Tincture Otc 1 dose PO UD Rx Instructions: 2 days per week - Placed under tongue Hair Plus Tincture Otc 1 dose PO QAM Liver Gall Bladder Tincture Otc 1 dose PO WK omega-3 fatty acids 1,000 mg Capsule 1,000 mg PO WK ascorbic acid (vitamin C) [Vitamin C] 500 mg Tablet 500 mg PO DAILY vitamin D3-vitamin K2 1 cap PO DAILY Referrals Referrals: Gabriel Bowers MD [Primary Care Provider] -
[2024-02-21] MEDS: PROPOFOL IV EMULSION 10 MG/ML 20 ML VIAL IV STA ×4 (21:54→21:57)
--- NOTE | 2024-02-21 22:05 | Orthopedic Consultation ---
Date of Consultation February 21, 2024 Assessment & Plan (1) Dislocation of right hip: (2) S/P total hip arthroplasty: Plan This is a 63 year old patient of Dr Barcenas's who presents today for a right prosthetic hip dislocation. This is her third dislocation. The patient notes that each of her previous dislocations were unable to be reduced in the ER and she had to have it done in the OR. I was consulted by the ER to attempt a closed reduction under conscious sedation. informed written consent was obtained for the procedure after detailed discussion of the risks and benefits. the patient understood the risk include but are not limited to: unsuccessful reduction, iatrogenic fracture, need to proceed to the OR. She signed consent and agreed to proceed with attempted closed reduction. Please see separate procedure note for full details, however this was unsuccessf ul as the patient did not achieve adequate enough relaxation. she did receive approximately 2mg/kg of proprofol over the course of about 4 minutes, and while she did allow some manipulation of her hip, she was clearly still wincing in pain indicating incomplete relaxation. additionally she did requiring bagging by the emergency department because she began to desaturate on the monitor. Due to her desaturations, the Emergency Department was uncomfortable proceeding with an additional attempt so the decision was made to proceed with admission to the hospitalist service and plan for closed reduction in the OR tomorrow. I will inform Dr Barcenas of this patient's return and allow him to make the appropriate arrangements for timing as I am unsure of his clinical responsibilities tomorrow. For the time being she should be NPO after midnight tonight NWB RLE History of Present Illness Reason for Consultation: right prosthetic hip dislocation Requesting Physician: Dr Alfaro History of Present Illness This is a 63 year old female who is s/p R total hip arthroplasty by Dr Barcenas in August of 2021. She has dislocated twice in the past and notes that she felt her hip pop out this evening when she bent over to pick something up off the floor. the patient notes that the previous two times, closed reduction was unsuccessful in the ER and she had to go to the OR for closed reduction both times. most recent dislocation was in March of this past year. She notes no additional areas of pain except her right hip. Allergies Allergy/AdvReac Type Severity Reaction Status Date / Time adhesive tape Allergy Intermediate Burning Verified 02/15/24 08:12 doxycycline AdvReac Severe "Can't Verified 02/15/24 08:12 function, can't talk. I felt numb" ciprofloxacin AdvReac Intermediate Irregeular Verified 02/15/24 08:12 heart beat, extreme dizziness metronidazole AdvReac Intermediate Irregeular Verified 02/15/24 08:12 heart beat, extreme dizziness Home Medications Medication Instructions Recorded Confirmed Type Bone Broth 2 cap PO QAM 05/06/20 02/15/24 History Turmeric Powder 1 cap PO QAM 05/06/20 02/15/24 History alprazolam 0.5 mg tablet (Xanax) 0.5 mg PO BID PRN Anxiety 05/06/20 02/15/24 History ascorbic acid 125 mg-collagen, 1 cap PO QAM 05/06/20 02/15/24 History hydrolyzed 740 mg capsule (Collagen Plus Vitamin C) Adrenal Tincture Otc 1 dose PO UD 07/10/21 02/15/24 History Hair Plus Tincture Otc 1 dose PO QAM 07/10/21 02/15/24 History Kidney Tincture Otc 1 dose PO WK 07/10/21 02/15/24 History Liver Gall Bladder Tincture Otc 1 dose PO WK 07/10/21 02/15/24 History Lymphatic Tincture Otc 1 dose PO QAM 07/10/21 02/15/24 History ascorbic acid (vitamin C) 500 mg 500 mg PO DAILY 03/25/23 02/15/24 History tablet (Vitamin C) omega-3 fatty acids 1,000 mg 1,000 mg PO WK 03/25/23 02/15/24 History capsule vitamin D3-vitamin K2 1 cap PO DAILY 02/15/24 02/15/24 History peg 3350-sod [id number] See Rx Instructions PO .COMPLEX #2 02/17/24 Rx 178.7-7.3-0.5-1.12-0.9 gram oral mL soln (Suflave) Patient History Medical History (Updated 02/15/24 @ 08:44 by Zakia Foster RN) Hx of diverticulitis of colon "a few months ago" no hospitalizations - no issues currently Heart burn History of reduction of closed dislocation (03/26/23) [facility] Right Hip Migraines "maybe twice a year - no pain involved" Snoring no sleep study Leukopenia Chronic, PCP aware/monitoring History of COVID-19 Early 10/2021, runny nose, DUMONT > resolved Post traumatic stress disorder Anxiety and depression Occasional panic attacks - prn xanax History of restless legs syndrome with Lyme disease Hx of Lyme disease Blood clot in vein 20+ years ago Right calf () Heart palpitations Rare occurrences x years - "it is getting A LOT better with accupuncture" Surgical History S/P excision of lipoma (01/07/22) Excision Recurrent Lipoma Left Upper Extremity(Left) 6 cm x 3 cm - Ashok Carter MD, FACS History of total right hip replacement 08/2021 [facility] - 03/2023 "it came out of the socket" [facility] H/O excision of mass Left upper arm by a [employer] [facility] Dr. Dany Dumont Lipoma History of arthroscopy of right shoulder 05/10/20: Grade 2 view, MAC 3 ETT 7.5 + PNB. No postop issues per anesthesia progress note. Hx of gynecological procedure Vaginal reconstruction and bladder tack/mesh Nausea and vomiting after administration of anesthetic agent "I always get medicated" History of hysterectomy H/O foot surgery Left History of hemorrhoidectomy History of esophagogastroduodenoscopy (EGD) History of colonoscopy History of cholecystectomy H/O eye surgery Left eye titanium shelf placed after "cracking orbit" [facility] Family History Aunt Family history of diabetes mellitus Other No family history of adverse response to anesthesia Social History Smoking Status: Never smoker Tobacco Type: Cigarettes Cigarettes Per Day: 5 CIGS A WEEK-NPO; Second Hand Exposure: No; Do You Dip or Chew Tobacco: No; Hx Alcohol Use: Yes Alcohol type: hard liquor Alcohol Intake Frequency: Monthly or Less Hx Substance Use: No Preferred Language: Thai Communication Ability: Effective Visual Impairment: No Limitations National Account Representative Required: No Beliefs That Will Affect Care: None marital status: Current Living Situation: Spouse Current Living Situation Comment: lives in 2 story home with significant other current occupational status: unemployed How many Children do You have: 2 Feels Safe at Home: Yes Diet: Atkins during the past year weight has: decreased > 10 lbs Assistive Devices: Glasses Review of Systems Review of Systems: All systems reviewed & are unremarkable except as noted in HPI & below Physical Exam Physical Exam: RLE: leg is obviously shorted and externally rotated. she demonstrates active GSC/TA/EHL/FHL function. SILT L2-S1. +2 DP/PT pulses. Results & Data Vital Signs (Past 12 Hours) Vital Signs Temp Pulse Resp BP Pulse Ox O2 Del Method 02/21/24 21:35 75 158/84 H 100 Room Air 02/21/24 21:21 80 99 Room Air 02/21/24 21:20 133/79 02/21/24 21:20 133/79 02/21/24 21:15 146/104 H 02/21/24 21:15 146/104 H 02/21/24 21:00 89 17 146/86 H 100 Room Air 02/21/24 20:32 83 02/21/24 20:21 36.7 C 87 16 165/90 H 100 Room Air Diagnostic Findings XR of right hip including pelvis peronsally interpreted and reviewed. this demonstrates a posterior right prosthetic hip dislocation without additional acute abnormalities. (1) Dislocation of right hip Encounter type: initial encounter Qualified Code(s): S73.004A - Unspecified dislocation of right hip, initial encounter
[2024-02-21] MEDS: KETAMINE HCL 10MG/ML SYR ONE (22:11)
--- NOTE | 2024-02-21 22:18 | Emergency Department Note ---
Pre Sedation Assessment Vital Signs Temp Pulse Resp BP Pulse Ox O2 Del Method 02/21/24 21:35 75 158/84 H 100 Room Air 02/21/24 21:21 80 99 Room Air 02/21/24 21:20 133/79 02/21/24 21:20 133/79 02/21/24 21:15 146/104 H 02/21/24 21:15 146/104 H 02/21/24 21:00 89 17 146/86 H 100 Room Air 02/21/24 20:32 83 02/21/24 20:21 36.7 C 87 16 165/90 H 100 Room Air Pre-Sedation Airway Assessment Smoking Status: Never smoker Hx Sleep Apnea: No Hx Difficult Intubation: No Short, Thick Neck: No Thyromental Distance: > or= 3.5 Finger Breadths Oral Cavity: + WNL Mallampati Class: II ASA: ASA2 NPO Status Date of Last Intake of Fluids: 02/21/24 Time of Last Intake of Fluids: 18:10 Last Oral Intake of Fluids Comment: water Date of Last Intake of Solid Food: 02/21/24 Time of Last Intake of Solid Foods: 18:10 Last Intake of Solids Comment: pizza Procedure Planning Contraindications for Sedation: none Current Medications Reviewed: Yes Notes The planned sedation has been discussed with the patient. Informed Consent was obtained. I have identified the patient, determined the appropriateness of sedation and have assessed the patient immediately prior to the procedure. All medicine(s) and interventions are by my order.
--- NOTE | 2024-02-21 22:20 | Emergency Department Note ---
Post Sedation Assessment Vital Signs Temp Pulse Resp BP Pulse Ox O2 Del Method 02/21/24 21:35 75 158/84 H 100 Room Air 02/21/24 21:21 80 99 Room Air 02/21/24 21:20 133/79 02/21/24 21:20 133/79 02/21/24 21:15 146/104 H 02/21/24 21:15 146/104 H 02/21/24 21:00 89 17 146/86 H 100 Room Air 02/21/24 20:32 83 02/21/24 20:21 36.7 C 87 16 165/90 H 100 Room Air Recovery Score Activity: Moves 4 extremities Respiration: Deep Breath/Cough Consciousness: Fully Awake Discharge Sedation Level of Care: Phase I Unexpected Event: Other (hypoxic down to 71% for about 20 seconds and had to have BVM performed) Post Sedation Plan On clinical assessment, the patient appears to have tolerated the sedation without complications. Patient is recovering as anticipated. Patient will continue to be monitored by nursing and may be discharged when sedation discharge criteria are met per below protocol. Upon Completions of procedure up to 15 minutes continue every 5 minute vital signs and the P.A.R. score; then discharge to a Phase I or Fast Track to Phase II per the following guidelines: * Discharge Patient to appropriate Phase II area if PAR is 8 or greater or return to pre- procedure baseline. The post - procedure orders will be as directed. * If PAR score is less than 8 or not return to pre-procedure baseline then patient will follow Phase I monitoring till PAR is reached for Phase II. The Phase I may be done in procedure room or may call to secure a Phase I area. * If naloxone or flumazenil are used for reversal, hold in Phase I for continued monitoring from when last reversal dose was given for a minimum of 60 minutes or longer pending the nurse and/or physician discretion of patient condition before discharge to Phase II. Please call the Sedation Physician to re-evaluate and complete post-note for discharge to Phase II area. Do NOT discharge from procedure sedation or Phase 1 until post- sedation evaluation note is complete by procedure /sedation MD Sedation Discharge Instructions to be given to the patient at discharge to home. Sedation Data Time Out Team Members Agree on the Following: Correct Patient, Correct Procedure, Correct Site-Side and Allergies Verified Team Agrees: Yes Time Out Performed Time: 21:53 Sedation Times Sedation Start Date: 02/21/24 Sedation Start Time: 21:55 Sedation End Date: 02/21/24 Sedation End Time: 22:05 Total Sedation Time: 10 Procedure Times Procedure Start Time:: 21:57 Procedure End Time: 22:00
--- NOTE | 2024-02-21 22:27 | Procedure Note ---
Procedure Note Date of Service February 21, 2024 Note Date: 02/21/24 Surgeon: Choco Hughes DO Preop Diagnosis: dislocated right total hip prosthesis Postop Diagnosis: same Indications:This is a 63 year old patient of Dr Garcia who presents today for a right prosthetic hip dislocation. This is her third dislocation. The patient notes that each of her previous dislocations were unable to be reduced in the ER and she had to have it done in the OR. I was consulted by the ER to attempt a closed reduction under conscious sedation. informed written consent was obtained for the procedure after detailed discussion of the risks and benefits. the patient understood the risk include but are not limited to: unsuccessful reduction, iatrogenic fracture, need to proceed to the OR. She signed consent and agreed to proceed with attempted closed reduction. Procedure: the patient had propofol administered by the ER for conscious sedation purposes. she received approximately 2mg/kg over about 4 minutes. complete relaxation and sedation was not able to be achieved. when she did appear most relaxed, traction, hip flexion and internal rotation were applied to the hip to attempt reduction. this was unsuccessful. post procedure radiographs were obtained demonstrating continued dislocation without fracture. following the procedure the patient remained neurovascularly intact. at this point the patient will be admitted and booked for the OR for tomorrow for closed reduction of her dislocated right total hip prosthesis. Complications: none immediately apparent. Coding
[2024-02-21] MEDS: PROPOFOL IV EMULSION 10 MG/ML 20 ML VIAL IV ONE (22:43)
[2024-02-21 23:15] LABS: Basophils # (auto) 0.01 K/uL (0.00-0.20); Basophils % (auto) 0.2 %; Eosinophils # (auto) 0.01 K/uL (0.00-0.50); Eosinophils % (auto) 0.2 %; Hematocrit (blood only) 39.8 % (37.0-47.0); Hemoglobin 13.8 g/dl (12.0-16.0); Immature Granulocytes # (auto) 0.01 K/uL (0.01-0.20); Immature Granulocytes % (auto) 0.2 %; Lymphocytes # (auto) 1.58 K/uL (1.20-3.40); Lymphocytes % (auto) 30.2 %; Mean Corpuscular Hemoglobin 32.6 pg (25.0-34.0); Mean Corpuscular Hgb Conc 34.7 g/dL (32.0-36.0); Mean Corpuscular Volume 94.1 fL (80.0-100.0); Mean Platelet Volume 8.8 fL (9.4-12.4); Monocytes # (auto) 0.34 K/uL (0.11-0.59); Monocytes % (auto) 6.5 %; Neutrophils # (auto) 3.29 K/uL (1.40-6.50); Neutrophils % (auto) 62.7 %; Platelet Count 233 K/uL (130-400); RDW Coefficient of Variation 12.7 % (11.5-14.5); RDW Standard Deviation 43.7 fL (36.4-46.3); Red Blood Count 4.23 M/uL (4.20-5.40); White Blood Count 5.24 K/ul (4.8-10.8)
[2024-02-21 23:34] LABS: Albumin Globulin Ratio 1.7 (0.9-2); Albumin Level 4.3 gm/dl (3.4-5.0); BUN Creatinine Ratio 25.6 (10-20); Bilirubin,Total 0.4 mg/dl (0.2-1.0); Calcium 9.7 mg/dl (8.6-10.3); Creatinine Clr Calc Pharmacy 122.1 ml/min; Globulin 2.6 gm/dl (2.5-4.0); Potassium 3.7 mmol/L (3.5-5.1); Total Protein 6.9 gm/dl (6.0-8.3)
[2024-02-21 23:40] LABS: Troponin I High Sensitivity 11.8 pg/ml (0-14)
--- NOTE | 2024-02-21 23:58 | XRay Report ---
Exam(s): XR PELVIS, 1-2 views EXAM: XR Pelvis, 1 or 2 Views CLINICAL HISTORY: Reason for exam: dislocation. TECHNIQUE: Frontal view of the pelvis. COMPARISON: No relevant prior studies available. FINDINGS: Bones/joints: Dislocated right hip arthroplasty. Femoral component dislocated superolaterally from acetabular cup. No dislocation. Soft tissues: Soft tissue swelling adjacent to the right hip. IMPRESSION: Dislocated right hip arthroplasty. Femoral component dislocated superolaterally from acetabular cup. Electronically signed by: Dave Mejia M.D. 02/21/24 23:58 PM
--- NOTE | 2024-02-21 23:58 | XRay Report ---
Exam(s): XR HIP + PELVIS, 2-3 views EXAM: XR Right Hip With Pelvis When Performed, 2 or 3 Views CLINICAL HISTORY: Reason for exam: R hip pain. TECHNIQUE: Two or three views of the right hip with pelvis when performed. COMPARISON: 03/26/23 FINDINGS: Bones/joints: Arthroplasty dislocation. Femoral component dislocated superolaterally from the acetabular cup. No visible fracture. Soft tissues: Unremarkable. IMPRESSION: Arthroplasty dislocation. Femoral component dislocated superolaterally from the acetabular cup. Electronically signed by: Dave Mejia M.D. 02/21/24 23:57 PM
--- NOTE | 2024-02-22 | XRay Report ---
Exam(s): XR RIGHT FEMUR, 2 views EXAM: XR Right Femur, 2 Views CLINICAL HISTORY: Reason for exam: dislocation. TECHNIQUE: Frontal and lateral views of the right femur. COMPARISON: No relevant prior studies available. FINDINGS: Bones/joints: Dislocated right hip arthroplasty. Femoral component dislocated superolaterally from the acetabular cup. No fracture. Mild degenerative change at the knee. Soft tissues: Unremarkable. IMPRESSION: Dislocated right hip arthroplasty. Femoral component dislocated superolaterally from the acetabular cup. Electronically signed by: Dave Mejia M.D. 02/21/24 23:58 PM
[2024-02-22] MEDS ORDERED: PROMETHAZINE 6.25 MG/50.25 ML BAG IV PRN (00:22)
[2024-02-22] MEDS ORDERED: LORazepam 0.5 MG TAB PO PRN (00:22)
[2024-02-22 00:29] LABS: Magnesium 1.7 mg/dl (1.7-2.4)
[2024-02-22] MEDS: KETOROLAC TROMETHAMINE 15 MG/ML VIAL IV ONE (00:38)
--- NOTE | 2024-02-22 01:08 | History & Physical Report ---
Date of Service February 22, 2024 Assessment & Plan (1) Dislocation of right hip: Plan: Recurrent right hip dislocation Failed closed reduction at the ER. Situational hypertension secondary to above hyperlipidemia, not on statin Rx anxiety disorder, patient notably anxious on exam due to discomfort ongoing tobacco abuse Medical telemetry given uncontrolled BP Analgesia, anxiolytic as needed IV Lopressor 1 dose now Orthopedics consult Re: Recurrent right hip dislocation (Patient already seen at the ER by Dr. Hughes who recommends n.p.o. status in anticipation of procedure by patient's primary orthopedic surgeon Dr. Barrow in AM.) Nicotine replacement therapy as needed DVT prophylaxis. SCDs re: possible procedure Full code Text document was generated using [employer] voice recognition software. It may contain grammatical or spelling errors. Kindly contact undersigned for clarification of any documentation item in question. History of Present Illness Chief Complaint: Right hip pain Primary Care Provider: Gabriel Bowers MD History obtained from patient and records. Medical history significant for hyperlipidemia, anxiety disorder, osteoarthritis, ongoing tobacco abuse. Last confinement March 2023 for right hip dislocation status post closed reduction. Patient bent over to pick something from the ground last night. Patient felt a pop on the right hip. Achy right hip pain. No falls. Pain worse with moving around. Denies headache, chest pain, SOB. Highest SBP of 160s documented at the ER. X-ray showed dislocated right hip. Unsuccessful closed reduction at the ER. Medical History as above Surgical History : Hip surgeries hemorrhoidectomy, shoulder surgery, partial hysterectomy, left oophorectomy, rhinoplasty, rib cartilage graft removal Family History : Heart disease, DM, dementia Personal/Social history : Few cigarettes a day, occasional EtOH intake, massage therapist Allergies Allergy/AdvReac Type Severity Reaction Status Date / Time adhesive tape Allergy Intermediate Burning Verified 02/15/24 08:12 doxycycline AdvReac Severe "Can't Verified 02/15/24 08:12 function, can't talk. I felt numb" ciprofloxacin AdvReac Intermediate Irregeular Verified 02/15/24 08:12 heart beat, extreme dizziness metronidazole AdvReac Intermediate Irregeular Verified 02/15/24 08:12 heart beat, extreme dizziness Home Medications Medication Instructions Recorded Confirmed Type Bone Broth 2 cap PO QAM 05/06/20 02/22/24 History Turmeric Powder 1 cap PO QAM 05/06/20 02/22/24 History alprazolam 0.5 mg tablet (Xanax) 0.5 mg PO BID PRN Anxiety 05/06/20 02/15/24 History ascorbic acid 125 mg-collagen, 1 cap PO QAM 05/06/20 02/22/24 History hydrolyzed 740 mg capsule (Collagen Plus Vitamin C) Adrenal Tincture Otc 1 dose PO UD 07/10/21 02/22/24 History Hair Plus Tincture Otc 1 dose PO QAM 07/10/21 02/22/24 History Kidney Tincture Otc 1 dose PO WK 07/10/21 02/22/24 History Liver Gall Bladder Tincture Otc 1 dose PO WK 07/10/21 02/22/24 History Lymphatic Tincture Otc 1 dose PO QAM 07/10/21 02/22/24 History ascorbic acid (vitamin C) 500 mg 500 mg PO DAILY 03/25/23 02/22/24 History tablet (Vitamin C) omega-3 fatty acids 1,000 mg 1,000 mg PO WK 03/25/23 02/22/24 History capsule vitamin D3-vitamin K2 1 cap PO DAILY 02/15/24 02/22/24 History alprazolam 0.5 mg tablet 0.5 mg PO BID PRN Anxiety 02/22/24 02/22/24 History Past Med/Surg History Problem List Dislocation of right hip (Acute) Dislocation of right hip (Acute) Dislocation of right hip (Acute) Acute right hip pain (Acute) Dislocation of hip joint prosthesis Lipoma of arm S/P total hip arthroplasty Osteoarthritis of right hip Lumbosacral radiculopathy Partial tear of rotator cuff Encounter for pre-operative examination Head injury (Acute) Face lacerations (Acute) Closed head injury (Acute) Anxiety (Chronic) Medical History Hx of diverticulitis of colon "a few months ago" no hospitalizations - no issues currently Heart burn History of reduction of closed dislocation (03/26/23) [facility] Right Hip Migraines "maybe twice a year - no pain involved" Snoring no sleep study Leukopenia Chronic, PCP aware/monitoring History of COVID-19 Early 10/2021, runny nose, DUMONT > resolved Post traumatic stress disorder Anxiety and depression Occasional panic attacks - prn xanax History of restless legs syndrome with Lyme disease Hx of Lyme disease Blood clot in vein 20+ years ago Right calf () Heart palpitations Rare occurrences x years - "it is getting A LOT better with accupuncture" Surgical History S/P excision of lipoma (01/07/22) Excision Recurrent Lipoma Left Upper Extremity(Left) 6 cm x 3 cm - Ashok Carter MD, FACS History of total right hip replacement 08/2021 [facility] - 03/2023 "it came out of the socket" [facility] H/O excision of mass Left upper arm by a Paintless Dent Repair Technician [facility] Dr. Dany Dumont Lipoma History of arthroscopy of right shoulder 05/10/20: Grade 2 view, MAC 3 ETT 7.5 + PNB. No postop issues per anesthesia progress note. Hx of gynecological procedure Vaginal reconstruction and bladder tack/mesh Nausea and vomiting after administration of anesthetic agent "I always get medicated" History of hysterectomy H/O foot surgery Left History of hemorrhoidectomy History of esophagogastroduodenoscopy (EGD) History of colonoscopy History of cholecystectomy H/O eye surgery Left eye titanium shelf placed after "cracking orbit" [facility] Family History Aunt Family history of diabetes mellitus Other No family history of adverse response to anesthesia Social History Smoking Status: Current some day smoker Tobacco Type: Cigarettes Cigarettes Per Day: 5 CIGS A WEEK-NPO; Second Hand Exposure: No; Do You Dip or Chew Tobacco: No; Hx Alcohol Use: Yes Alcohol type: hard liquor Alcohol Intake Frequency: Monthly or Less Hx Substance Use: No Preferred Language: Dominican Communication Ability: Effective Visual Impairment: No Limitations Brick Layer Required: No Beliefs That Will Affect Care: None marital status: Current Living Situation: Significant Other Current Living Situation Comment: lives in 2 story home with significant other current occupational status: unemployed How many Children do You have: 2 Feels Safe at Home: Yes Safety Concerns: Feels Safe At This Time Diet: Atkins during the past year weight has: decreased > 10 lbs Assistive Devices: Crutches and Walker Review of Systems Review of Systems: As per HPI, all other systems reviewed and negative Physical Exam Physical Exam: GENERAL: uncomfortable, anxious, tearful, no respiratory distress SKIN: Normal color, warm HEENT: [place] palpebral conjunctivae, no ptosis, dry buccal mucosa, nasal cannula in place NECK : Supple, no tenderness CHEST : CTA, no tenderness HEART : RRR, no obvious murmurs ABDOMEN: Some distention, nontender EXTREMITIES : Obvious right hip deformity with tenderness, no other conspicuous deformities noted NEUROLOGIC : Coherent, no facial asymmetry, no other gross focality Results & Data Results & Data Vital Signs (Past 12 Hours) Vital Signs Temp Pulse Pulse Resp BP BP Pulse Ox 02/22/24 00:20 81 02/22/24 00:00 65 16 152/90 H 97 02/21/24 22:35 70 12 118/68 92 02/21/24 22:30 77 14 137/82 97 02/21/24 22:25 75 12 129/82 100 02/21/24 22:20 69 12 135/78 93 02/21/24 22:15 72 12 132/105 H 100 02/21/24 22:05 74 12 154/86 H 99 02/21/24 22:00 90 12 154/106 H 71 L 02/21/24 21:55 83 14 155/100 H 100 02/21/24 21:50 75 16 165/88 H 98 02/21/24 21:46 86 16 145/90 H 99 02/21/24 21:35 75 158/84 H 100 02/21/24 21:21 80 99 02/21/24 21:20 133/79 02/21/24 21:20 133/79 02/21/24 21:15 146/104 H 02/21/24 21:15 146/104 H 02/21/24 21:00 89 17 146/86 H 100 02/21/24 20:32 83 02/21/24 20:21 36.7 C 87 16 165/90 H 100 O2 Del Method O2 Flow Rate 02/22/24 00:20 02/22/24 00:00 Room Air 02/21/24 22:35 Room Air 02/21/24 22:30 Room Air 02/21/24 22:25 Room Air 02/21/24 22:20 Nasal Cannula 3 02/21/24 22:15 Nasal Cannula 6 02/21/24 22:05 Nasal Cannula 6 02/21/24 22:00 Ambu-Bag 15 02/21/24 21:55 Nasal Cannula 6 02/21/24 21:50 Room Air 02/21/24 21:46 Room Air 02/21/24 21:35 Room Air 02/21/24 21:21 Room Air 02/21/24 21:20 02/21/24 21:20 02/21/24 21:15 02/21/24 21:15 02/21/24 21:00 Room Air 02/21/24 20:32 02/21/24 20:21 Room Air Laboratory Results Laboratory Results WBC 5.24 K/ul (4.8-10.8) 02/21/24 23:04 RBC 4.23 M/uL (4.20-5.40) 02/21/24 23:04 Hgb 13.8 g/dl (12.0-16.0) 02/21/24 23:04 Hct 39.8 % (37.0-47.0) 02/21/24 23:04 MCV 94.1 fL (80.0-100.0) 02/21/24 23:04 MCH 32.6 pg (25.0-34.0) 02/21/24 23:04 MCHC 34.7 g/dL (32.0-36.0) 02/21/24 23:04 RDW Std Deviation 43.7 fL (36.4-46.3) 02/21/24 23:04 RDW Coeff of Thomas 12.7 % (11.5-14.5) 02/21/24 23:04 Plt Count 233 K/uL (130-400) 02/21/24 23:04 MPV 8.8 fL (9.4-12.4) L 02/21/24 23:04 Immature Gran % (Auto) 0.2 % 02/21/24 23:04 Neut % (Auto) 62.7 % 02/21/24 23:04 Lymph % (Auto) 30.2 % 02/21/24 23:04 Ida % (Auto) 6.5 % 02/21/24 23:04 Eos % (Auto) 0.2 % 02/21/24 23:04 Baso % (Auto) 0.2 % 02/21/24 23:04 Neut # (Auto) 3.29 K/uL (1.40-6.50) 02/21/24 23:04 Lymph # (Auto) 1.58 K/uL (1.20-3.40) 02/21/24 23:04 Ida # (Auto) 0.34 K/uL (0.11-0.59) 02/21/24 23:04 Eos # (Auto) 0.01 K/uL (0.00-0.50) 02/21/24 23:04 Baso # (Auto) 0.01 K/uL (0.00-0.20) 02/21/24 23:04 Immature Gran # (Auto) 0.01 K/uL (0.01-0.20) 02/21/24 23:04 Sodium 135 mmol/L (136-145) L 02/21/24 23:04 Potassium 3.7 mmol/L (3.5-5.1) 02/21/24 23:04 Chloride 102 mmol/L (98-107) 02/21/24 23:04 Carbon Dioxide 23 mmol/L (21-32) 02/21/24 23:04 Anion Gap 10 (3-11) 02/21/24 23:04 BUN 11 mg/dl (6-23) 02/21/24 23:04 Creatinine 0.43 mg/dl (0.6-1.2) L 02/21/24 23:04 Est Cr Clr Drug Dosing 122.1 ml/min 02/21/24 23:04 eGFR 108.54 02/21/24 23:04 BUN/Creatinine Ratio 25.6 (10-20) H 02/21/24 23:04 Glucose 86 mg/dl (70-99(Fasting)) 02/21/24 23:04 Calcium 9.7 mg/dl (8.6-10.3) 02/21/24 23:04 Magnesium 1.7 mg/dl (1.7-2.4) 02/21/24 23:04 Total Bilirubin 0.4 mg/dl (0.2-1.0) 02/21/24 23:04 AST 19 U/L (13-39) 02/21/24 23:04 ALT 21 U/L (7-52) 02/21/24 23:04 Alkaline Phosphatase 52 U/L (34-104) 02/21/24 23:04 Troponin I High Sens 11.8 pg/ml (0-14) 02/21/24 23:04 Total Protein 6.9 gm/dl (6.0-8.3) 02/21/24 23:04 Albumin 4.3 gm/dl (3.4-5.0) 02/21/24 23:04 Globulin 2.6 gm/dl (2.5-4.0) 02/21/24 23:04 Albumin/Globulin Ratio 1.7 (0.9-2) 02/21/24 23:04 Impressions Hip/Pelvis X-Ray 02/21/24 20:28 Exam(s): XR HIP + PELVIS, 2-3 views EXAM: XR Right Hip With Pelvis When Performed, 2 or 3 Views CLINICAL HISTORY: Reason for exam: R hip pain. TECHNIQUE: Two or three views of the right hip with pelvis when performed. COMPARISON: 03/26/23 FINDINGS: Bones/joints: Arthroplasty dislocation. Femoral component dislocated superolaterally from the acetabular cup. No visible fracture. Soft tissues: Unremarkable. IMPRESSION: Arthroplasty dislocation. Femoral component dislocated superolaterally from the acetabular cup. Electronically signed by: Dave Mejia M.D. 02/21/24 23:57 PM Femur X-Ray 02/21/24 22:05 Exam(s): XR RIGHT FEMUR, 2 views EXAM: XR Right Femur, 2 Views CLINICAL HISTORY: Reason for exam: dislocation. TECHNIQUE: Frontal and lateral views of the right femur. COMPARISON: No relevant prior studies available. FINDINGS: Bones/joints: Dislocated right hip arthroplasty. Femoral component dislocated superolaterally from the acetabular cup. No fracture. Mild degenerative change at the knee. Soft tissues: Unremarkable. IMPRESSION: Dislocated right hip arthroplasty. Femoral component dislocated superolaterally from the acetabular cup. Electronically signed by: Dave Mejia M.D. 02/21/24 23:58 PM Pelvis X-Ray 02/21/24 22:05 Exam(s): XR PELVIS, 1-2 views EXAM: XR Pelvis, 1 or 2 Views CLINICAL HISTORY: Reason for exam: dislocation. TECHNIQUE: Frontal view of the pelvis. COMPARISON: No relevant prior studies available. FINDINGS: Bones/joints: Dislocated right hip arthroplasty. Femoral component dislocated superolaterally from acetabular cup. No dislocation. Soft tissues: Soft tissue swelling adjacent to the right hip. IMPRESSION: Dislocated right hip arthroplasty. Femoral component dislocated superolaterally from acetabular cup. Electronically signed by: Dave Mejia M.D. 02/21/24 23:58 PM Diagnostic Findings EKG as per my interpretation :Rate 65, NSR, normal axis, inferior infarct, T wave abnormalities septal leads, low voltage
[2024-02-22] MEDS: ALPRAZolam 0.5 MG TABLET PO STA (01:47)
[2024-02-22] MEDS: oxyCODONE HCL IR 5 MG TAB (IMMEDIATE RELEASE) PO PRN (01:50)
--- NOTE | 2024-02-22 02:18 | XRay Report ---
EXAM: XR chest 1V portable CLINICAL HISTORY: LOW O2 DENIES CHEST COMPLAINTS. TECHNIQUE: An X-ray image of the chest is obtained in AP portable projection. COMPARISON: Comparison with the previous study dated 03/26/2023. FINDINGS: Pulmonary Parenchyma: Prominent both massimo with accentuated basal broncho vascular markings suggesting lung congestion/bronchitis for clinical correlation. No evidence of consolidation, collapse, or focal opacities. No pulmonary nodules are identified. No evidence of pleural effusion or pleural thickening. Heart and Mediastinum: Heart size and shape are normal. No mediastinal widening or masses. No hilar or mediastinal lymphadenopathy. Bony Thorax: The bony thorax appears intact without fractures or deformities. Soft Tissues: Soft tissues overlying the chest wall are unremarkable. IMPRESSION: 1. Prominent both massimo with accentuated basal broncho vascular markings suggesting lung congestion/bronchitis for clinical correlation. 2. No acute cardiopulmonary abnormalities are identified. 3. No gross interval changes in comparison with the previous study. Electronically signed by Gustavo Napier 02-22-2024 02:18 AM
[2024-02-22] MEDS: METOPROLOL TARTRATE 1 MG/ML VIAL IV STA (03:08)
[2024-02-22] MEDS: SODIUM CHLORIDE 0.9% 1,000 ML IV ONE (03:12)
[2024-02-22] MEDS: ALPRAZolam 0.5 MG TABLET PO PRN (05:50)
[2024-02-22] MEDS: MoRPHine SULFATE 4 MG/ML 1 ML CARP\\VIAL IV PRN (05:50)
[2024-02-22] MEDS ORDERED: fentaNYL citrate PF 100 MCG/2 ML VIAL IV PRN (07:21)
[2024-02-22] MEDS ORDERED: ONDANSETRON INJ 2 MG/ML 2 ML VIAL IV PRN (07:21)
[2024-02-22] MEDS ORDERED: ePHEDrine sulfate 50 MG/ML AMP IV PRN (07:21)
[2024-02-22] MEDS ORDERED: ATROPINE SULFATE 0.1 MG/ML 10ML SYR IV PRN (07:21)
--- NOTE | 2024-02-22 07:21 | Anesthesiology Consultation ---
Date of Service February 22, 2024 Assessment & Plan (1) Encounter for pre-operative examination: Chart Review Chart Review: Acceptable Risk for Surgery and Patient NOT seen in Pre Admission Testing Consults Requested none History Surgery Operation Date: 02/22/24 08:00 Proposed Procedures p Right Hip Closed Reduction - Henrry Barcenas MD Height/Weight Height: 5 ft 3 in Weight: 60.328 kg Allergies Allergy/AdvReac Type Severity Reaction Status Date / Time adhesive tape Allergy Intermediate Burning Verified 02/15/24 08:12 doxycycline AdvReac Severe "Can't Verified 02/15/24 08:12 function, can't talk. I felt numb" ciprofloxacin AdvReac Intermediate Irregeular Verified 02/15/24 08:12 heart beat, extreme dizziness metronidazole AdvReac Intermediate Irregeular Verified 02/15/24 08:12 heart beat, extreme dizziness Medications Home Medications Medication Instructions Recorded Confirmed Last Taken Bone Broth 2 cap PO QAM 05/06/20 02/22/24 03/24/23 Turmeric Powder 1 cap PO QAM 05/06/20 02/22/24 03/24/23 alprazolam 0.5 mg tablet (Xanax) 0.5 mg PO BID PRN Anxiety 05/06/20 02/15/24 01/06/22 22:00 ascorbic acid 125 mg-collagen, 1 cap PO QAM 05/06/20 02/22/24 03/24/23 hydrolyzed 740 mg capsule (Collagen Plus Vitamin C) Adrenal Tincture Otc 1 dose PO UD 07/10/21 02/22/24 03/24/23 Hair Plus Tincture Otc 1 dose PO QAM 07/10/21 02/22/24 03/24/23 Kidney Tincture Otc 1 dose PO WK 07/10/21 02/22/24 03/24/23 Liver Gall Bladder Tincture Otc 1 dose PO WK 07/10/21 02/22/24 03/24/23 Lymphatic Tincture Otc 1 dose PO QAM 07/10/21 02/22/24 03/24/23 ascorbic acid (vitamin C) 500 mg 500 mg PO DAILY 03/25/23 02/22/24 03/24/23 tablet (Vitamin C) omega-3 fatty acids 1,000 mg 1,000 mg PO WK 03/25/23 02/22/2403/24/24 capsule vitamin D3-vitamin K2 1 cap PO DAILY 02/15/24 02/22/24 Unknown alprazolam 0.5 mg tablet 0.5 mg PO BID PRN Anxiety 02/22/24 02/22/24 Unknown Active Medications Generic Name Dose Route Start Last Admin Trade Name Genaroq PRN Reason Stop Dose Admin Alprazolam 0.5 mg 02/22/24 01:10 02/22/24 05:50 Alprazolam 0.5 Mg Tablet PO 03/23/24 01:09 0.5 mg BID PRN Administration Anxiety Sodium Chloride 1,000 mls @ 50 mls/hr 02/22/24 02:10 02/22/24 03:12 Nss IV 02/22/24 22:09 50 mls/hr .Q20H ONE Administration Morphine Sulfate 4 mg 02/22/24 01:10 02/22/24 05:50 Morphine Sulfate 4 Mg/Ml 1 Ml Carp\\Vial IV 03/07/24 01:09 4 mg Q4H PRN Administration Pain Oxycodone HCl 5 - 10 mg 02/22/24 00:22 02/22/24 01:50 Oxycodone Hcl Ir 5 Mg Tab (Immediate Release) PO 03/07/24 00:21 5 mg QID PRN Administration Pain NPO Date Last Intake of Fluids: 02/21/24 Time Last Intake of Fluids: 18:10 Last Intake of Fluids Comment: water Date Last Intake of Solids: 02/21/24 Time Last Intake of Solids: 18:10 Last Intake of Solids Comment: toro Past Medical History Medical History Hx of diverticulitis of colon "a few months ago" no hospitalizations - no issues currently Heart burn History of reduction of closed dislocation (03/26/23) [facility] Right Hip Migraines "maybe twice a year - no pain involved" Snoring no sleep study Leukopenia Chronic, PCP aware/monitoring History of COVID-19 Early 10/2021, runny nose, DUMONT > resolved Post traumatic stress disorder Anxiety and depression Occasional panic attacks - prn xanax History of restless legs syndrome with Lyme disease Hx of Lyme disease Blood clot in vein 20+ years ago Right calf () Heart palpitations Rare occurrences x years - "it is getting A LOT better with accupuncture" Past Family History Family History Aunt Family history of diabetes mellitus Other No family history of adverse response to anesthesia Past Surgical History Surgical History S/P excision of lipoma (01/07/22) Excision Recurrent Lipoma Left Upper Extremity(Left) 6 cm x 3 cm - Ashok Carter MD, FACS History of total right hip replacement 08/2021 [facility] - 03/2023 "it came out of the socket" [facility] H/O excision of mass Left upper arm by a Health Information Technician [facility] Dr. Dany Dumont Lipoma History of arthroscopy of right shoulder 05/10/20: Grade 2 view, MAC 3 ETT 7.5 + PNB. No postop issues per anesthesia progress note. Hx of gynecological procedure Vaginal reconstruction and bladder tack/mesh Nausea and vomiting after administration of anesthetic agent "I always get medicated" History of hysterectomy H/O foot surgery Left History of hemorrhoidectomy History of esophagogastroduodenoscopy (EGD) History of colonoscopy History of cholecystectomy H/O eye surgery Left eye titanium shelf placed after "cracking orbit" [facility] Social History Smoking Status: Current some day smoker tobacco type: cigarettes Smoking cigarettes per day: 5 CIGS A WEEK-NPO Do You Dip or Chew Tobacco: No Hx Alcohol Use: Yes Alcohol type: hard liquor alcohol intake frequency: a few times a week Hx Substance Use: No substance use type: does not use Physical Exam Vital Signs Last Vital Signs Temp 98.1 F 02/22/24 05:20 Pulse 67 02/22/24 05:20 Resp 18 02/22/24 05:20 BP 147/83 H 02/22/24 05:20 Pulse Ox 93 02/22/24 05:20 O2 Del Method Room Air 02/22/24 05:20 O2 Flow Rate 1 02/22/24 03:09 Testing Laboratory Results 02/21/24 23:04 02/21/24 23:04
--- NOTE | 2024-02-22 07:29 | Orthopedic Progress Note ---
Date of Service February 22, 2024 Assessment & Plan (1) Dislocation of hip joint prosthesis: Plan: I spoke with Dr. Hughes this morning about Hermila. She dislocated her hip yesterday while bending forward while her leg was internally rotated to pick something off the floor. This is now her third dislocation. with Dr. Hughes attempted closed reduction under sedation emergency room but unfortunately was unsuccessful and getting a closed reduction. Patient's been n.p.o. since midnight. I saw her this morning in the preoperative holding area. Reviewed the risks and benefits of closed reduction. Informed consent was signed. Proceed to the operating room this morning. Will need to discuss the possibility of revision total hip arthroplasty after her hip is reduced. Admission and Anticipated Discharge Date Admission Date: February 22, 2024 Results & Data Vital Signs (Past 12 Hours) Vital Signs Temp Pulse Pulse Resp BP BP BP 02/22/24 07:21 36.8 C 61 18 140/82 02/22/24 05:49 72 02/22/24 05:20 02/22/24 05:20 36.7 C 67 18 147/83 H 02/22/24 03:50 68 02/22/24 03:09 02/22/24 03:03 71 16 127/87 02/22/24 02:57 71 16 161/91 H 02/22/24 01:27 165/103 H 02/22/24 00:30 83 16 160/98 H 02/22/24 00:20 81 02/22/24 00:15 152/90 H 02/22/24 00:00 65 16 152/90 H 02/21/24 22:35 70 12 118/68 02/21/24 22:30 77 14 137/82 02/21/24 22:25 75 12 129/82 02/21/24 22:20 69 12 135/78 02/21/24 22:15 72 12 132/105 H 02/21/24 22:05 74 12 154/86 H 02/21/24 22:00 90 12 154/106 H 02/21/24 21:55 83 14 155/100 H 02/21/24 21:50 75 16 165/88 H 02/21/24 21:46 86 16 145/90 H 02/21/24 21:35 75 158/84 H 02/21/24 21:21 80 02/21/24 21:20 133/79 02/21/24 21:20 133/79 02/21/24 21:15 146/104 H 02/21/24 21:15 146/104 H 02/21/24 21:00 89 17 146/86 H 02/21/24 20:32 83 02/21/24 20:21 36.7 C 87 16 165/90 H Pulse Ox Pulse Ox O2 Del Method O2 Del Method O2 Flow Rate O2 Flow Rate 02/22/24 07:21 97 Room Air 02/22/24 05:49 02/22/24 05:20 Room Air 02/22/24 05:20 93 Room Air 02/22/24 03:50 02/22/24 03:09 99 Nasal Cannula 1 02/22/24 03:03 98 Nasal Cannula 1 02/22/24 02:57 99 02/22/24 01:27 02/22/24 00:30 100 02/22/24 00:20 02/22/24 00:15 02/22/24 00:00 97 Room Air 02/21/24 22:35 92 Room Air 02/21/24 22:30 97 Room Air 02/21/24 22:25 100 Room Air 02/21/24 22:20 93 Nasal Cannula 3 02/21/24 22:15 100 Nasal Cannula 6 02/21/24 22:05 99 Nasal Cannula 6 02/21/24 22:00 71 L Ambu-Bag 15 02/21/24 21:55 100 Nasal Cannula 6 02/21/24 21:50 98 Room Air 02/21/24 21:46 99 Room Air 02/21/24 21:35 100 Room Air 02/21/24 21:21 99 Room Air 02/21/24 21:20 02/21/24 21:20 02/21/24 21:15 02/21/24 21:15 02/21/24 21:00 100 Room Air 02/21/24 20:32 02/21/24 20:21 100 Room Air
--- NOTE | 2024-02-22 07:56 | Operative Report ---
Post Operative Report Pre & Post Diagnosis Operation Date: 02/22/24 08:00 Preoperative diagnosis: Right total hip arthroplasty posterior superior dislocation Postoperative diagnosis: Right total hip arthroplasty posterior superior dislocation I identified the patient and participated in the time-out.: Yes Procedure Operation Date: 02/22/24 08:00 closed reduction right total hip arthroplasty dislocation Surgeon Henrry Barcenas MD Business Analyst none Estimated Blood Loss 0 Findings Consistent with Post-Op Diagnosis Specimens none Anesthesia Type MAC Complications none Disposition Disposition: Recovery Room Indications 63-year-old female, status post right total hip arthroplasty for avascular necrosis by myself in August 2021. Now 2-1/2 years out from surgery. Yesterday she was at home, bending forward to pick something up off the floor, with her hip internally rotated when she felt her hip dislocate. Immediate onset of pain and inability to walk. She was brought to the emergency room yesterday. X-rays in the emergency room confirmed a posterior superior total hip dislocation. Unfortunately, this is her third dislocation. Dr. Hughes was the orthopedic surgeon on-call. He attempted a closed reduction in the emergency room which was unsuccessful. She was therefore admitted to the internal medicine service overnight. Kept n.p.o. after midnight. I saw her this morning. We discussed the diagnosis and treatment. She elects to proceed with closed reduction under anesthesia. All questions were answered. Informed consent was signed. Description of Procedure Patient was identified in the preoperative holding area where her procedural site was marked. She was brought back to the operating room where she was carefully moved onto the operating room table and intravenous sedation was administered. All bony prominences were padded. No antibiotics were indicated. Timeout was performed. All in the room were in agreement. We began by bringing in fluoroscopy to confirm that there was no fractures. This was confirmed. I then got up on the operating room table and flexed her hip to approximately 90 degrees, maximally internally rotated the hip approximately 50 degrees, and pulled traction toward the ceiling. I felt the hip reduced. I checked her leg lengths and they were symmetric. Fluoroscopy brought and we confirmed an anatomic reduction of the total hip arthroplasty. Additional fluoroscopic views of the acetabulum and femur showed no fractures. Her sedation was then lifted and she was transferred to recovery room in stable condition. Postoperative course: Patient be readmitted to the hospital from the recovery room. She will need to work with physical therapy today. If she passes PT she can discharge home today. She will need outpatient follow-up with me in the next 1 to 2 weeks. At that time we will need to have another discussion about revision total hip arthroplasty. We did discuss this after her last dislocation about 1 year ago and she did not want to pursue additional surgery at that time. I attest to the content of the Intraoperative Record and any orders documented therein. Any exceptions are noted below.
--- NOTE | 2024-02-22 08:36 | Fluoroscopy Report ---
FL hip RT 2-3V CLINICAL HISTORY: RIGHT HIP CLOSED REDUCTION COMPARISON STUDY: Femur and hip radiographs 02/21/2024 FLUOROSCOPY TIME: 1.6 seconds FLUOROSCOPY IMAGES: 3 EXPOSURE DOSE: 0.2193 mGy FINDINGS: Superior dislocation of the femoral head prosthesis on the initial image with the second an d third images demonstrating reduction without fracture or unexpected opaque foreign body. IMPRESSION: Fluoroscopic assistance as above. ACT 112: Negative or not required by law. Electronically signed by: Kashmir Sanchez M.D. 02/22/2024 8:35 AM
[2024-02-22 08:42] VITALS: RESP 18
[2024-02-22] MEDS ORDERED: ALPRAZolam 0.5 MG TABLET PO PRN (08:48)
[2024-02-22] MEDS ORDERED: [UNRECOGNIZED DRUG - OTHER] PO SCH (08:48)
[2024-02-22] MEDS ORDERED: [UNRECOGNIZED DRUG - OTHER] PO SCH (08:48)
[2024-02-22] MEDS ORDERED: [UNRECOGNIZED DRUG - OTHER] PO SCH (08:48)
--- NOTE | 2024-02-22 08:56 | Anesthesiology Progress Note ---
Date of Service February 22, 2024 Anesthesia Post Procedure Vital Signs Vital Signs: Temp Pulse Pulse Pulse Resp BP BP 02/22/24 08:50 98.1 F 72 18 122/75 02/22/24 08:35 98.4 F 77 18 119/75 02/22/24 08:20 98.1 F 72 12 119/69 02/22/24 08:10 78 12 123/72 02/22/24 08:02 97.7 F 78 14 129/81 02/22/24 07:21 98.2 F 61 18 140/82 02/22/24 05:49 72 02/22/24 05:20 02/22/24 05:20 98.1 F 67 18 02/22/24 03:50 68 02/22/24 03:09 02/22/24 03:03 71 16 127/87 02/22/24 02:57 71 16 161/91 H 02/22/24 01:27 165/103 H 02/22/24 00:30 83 16 160/98 H 02/22/24 00:20 81 02/22/24 00:15 152/90 H 02/22/24 00:00 65 16 152/90 H 02/21/24 22:35 70 12 118/68 02/21/24 22:30 77 14 137/82 02/21/24 22:25 75 12 129/82 02/21/24 22:20 69 12 135/78 02/21/24 22:15 72 12 132/105 H 02/21/24 22:05 74 12 154/86 H 02/21/24 22:00 90 12 154/106 H 02/21/24 21:55 83 14 155/100 H 02/21/24 21:50 75 16 165/88 H 02/21/24 21:46 86 16 145/90 H 02/21/24 21:35 75 158/84 H 02/21/24 21:21 80 02/21/24 21:20 133/79 02/21/24 21:20 133/79 02/21/24 21:15 146/104 H 02/21/24 21:15 146/104 H 02/21/24 21:00 89 17 146/86 H 02/21/24 20:32 83 02/21/24 20:21 98.1 F 87 16 165/90 H BP Pulse Ox Pulse Ox O2 Del Method O2 Del Method O2 Flow Rate O2 Flow Rate 02/22/24 08:50 95 Nasal Cannula 2 02/22/24 08:35 95 Nasal Cannula 2 02/22/24 08:20 97 Nasal Cannula 2 02/22/24 08:10 98 Oxymask 4 02/22/24 08:02 98 Oxymask 6 02/22/24 07:21 97 Room Air 02/22/24 05:49 02/22/24 05:20 Room Air 02/22/24 05:20 147/83 H 93 Room Air 02/22/24 03:50 02/22/24 03:09 99 Nasal Cannula 1 02/22/24 03:03 98 Nasal Cannula 1 02/22/24 02:57 99 02/22/24 01:27 02/22/24 00:30 100 02/22/24 00:20 02/22/24 00:15 02/22/24 00:00 97 Room Air 02/21/24 22:35 92 Room Air 02/21/24 22:30 97 Room Air 02/21/24 22:25 100 Room Air 02/21/24 22:20 93 Nasal Cannula 3 02/21/24 22:15 100 Nasal Cannula 6 02/21/24 22:05 99 Nasal Cannula 6 02/21/24 22:00 71 L Ambu-Bag 15 02/21/24 21:55 100 Nasal Cannula 6 02/21/24 21:50 98 Room Air 02/21/24 21:46 99 Room Air 02/21/24 21:35 100 Room Air 02/21/24 21:21 99 Room Air 02/21/24 21:20 02/21/24 21:20 02/21/24 21:15 02/21/24 21:15 02/21/24 21:00 100 Room Air 02/21/24 20:32 02/21/24 20:21 100 Room Air Pain Intensity Right Hip: Pain Intensity: 6 Transfer of Care Handoff Completed per policy Notes Mental Status: alert / awake / arousable and participated in evaluation Patient Amnestic to Procedure: Yes Nausea / Vomiting: adequately controlled Pain: adequately controlled Airway Patency, RR, SpO2: stable & adequate BP & HR: stable & adequate Hydration State: stable & adequate Anesthetic Complications: no major complications apparent and Pt Satisfied with anesthetic care
[2024-02-22] MEDS ORDERED: ASCORBIC ACID 500 MG TAB PO SCH (09:00)
[2024-02-22] MEDS ORDERED: [UNRECOGNIZED DRUG - OTHER] PO SCH (09:00)
[2024-02-22] MEDS ORDERED: [UNRECOGNIZED DRUG - OTHER] PO SCH (09:00)
[2024-02-22] MEDS ORDERED: TURMERIC PO SCH (09:00)
[2024-02-22] MEDS ORDERED: [UNRECOGNIZED DRUG - OTHER] PO SCH (09:00)
[2024-02-22 09:58] VITALS: BP 125/76; TEMP 98.6; O2SAT 95
[2024-02-22] MEDS: CHOLECALCIFEROL 10 MCG (400 UNITS) TAB PO SCH (10:14)
[2024-02-22] MEDS: ASCORBIC ACID 500 MG TAB PO SCH (10:14)
[2024-02-22] MEDS: OMEGA-3 (PURIFIED FISH OIL) 1 GM CAP PO SCH (10:15)
[2024-02-22] MEDS: HYDROmorphone INJ 0.5 MG/0.5 ML SYR IV PRN (11:12)
[2024-02-22 11:51] VITALS: PULSE 72
--- NOTE | 2024-02-22 11:58 | Discharge Summary ---
Discharge Summary Date of Service February 22, 2024 Principal Dx & Hospital Course #1 = Principal Diagnosis (1) Dislocation of right hip: Ms. Green is a 63 yo woman with medical history significant for hyperlipidemia, anxiety disorder, osteoarthritis, ongoing tobacco abuse. Last confinement March 2023 for right hip dislocation status post closed reduction. Patient found to have right hip dislocation that was not able to be reduced in ED. Patient now s/p reduction in OR this am. Patient worked with PT and cleared by Ortho for discharge #Recurrent right hip dislocation Failed closed reduction at the ER. Dr. Barcenas confirmed no fractures and reduced right hip arthoplasty 02/21 PT: clear for D/C with hip precautions #Situational hypertension secondary to above hyperlipidemia, not on statin Rx anxiety disorder, patient notably anxious on exam due to discomfort ongoing tobacco abuse Notes For Next Care Provider Medication Changes From Visit Short course cyclobenzaprine BID prn spasms Admission HPI Per Admitting Provider History obtained from patient and records. Medical history significant for hyperlipidemia, anxiety disorder, osteoarthritis, ongoing tobacco abuse. Last confinement March 2023 for right hip dislocation status post closed reduction. Patient bent over to pick something from the ground last night. Patient felt a pop on the right hip. Achy right hip pain. No falls. Pain worse with moving around. Denies headache, chest pain, SOB. Highest SBP of 160s documented at the ER. X-ray showed dislocated right hip. Unsuccessful closed reduction at the ER. Medical History as above Surgical History : Hip surgeries hemorrhoidectomy, shoulder surgery, partial hysterectomy, left oophorectomy, rhinoplasty, rib cartilage graft removal Family History : Heart disease, DM, dementia Personal/Social history : Few cigarettes a day, occasional EtOH intake, massage therapist Admission Exam Per Admitting Provider GENERAL: uncomfortable, anxious, tearful, no respiratory distress SKIN: Normal color, warm HEENT: [place] palpebral conjunctivae, no ptosis, dry buccal mucosa, nasal cannula in place NECK : Supple, no tenderness CHEST : CTA, no tenderness HEART : RRR, no obvious murmurs ABDOMEN: Some distention, nontender EXTREMITIES : Obvious right hip deformity with tenderness, no other conspicuous deformities noted NEUROLOGIC : Coherent, no facial asymmetry, no other gross focality Discharge Exam Constitutional WD/WN, vitals as above Respiratory normal respiratory effort, lungs clear to auscultation Cardiovascular RRR, no murmur, no edema Updated Medication List Medication Instructions Recorded Confirmed Type Bone Broth 2 cap PO QAM 05/06/20 02/22/24 History Turmeric Powder 1 cap PO QAM 05/06/20 02/22/24 History alprazolam 0.5 mg tablet (Xanax) 0.5 mg PO BID PRN Anxiety 05/06/20 02/15/24 History ascorbic acid 125 mg-collagen, 1 cap PO QAM 05/06/20 02/22/24 History hydrolyzed 740 mg capsule (Collagen Plus Vitamin C) Adrenal Tincture Otc 1 dose PO UD 07/10/21 02/22/24 History Hair Plus Tincture Otc 1 dose PO QAM 07/10/21 02/22/24 History Kidney Tincture Otc 1 dose PO WK 07/10/21 02/22/24 History Liver Gall Bladder Tincture Otc 1 dose PO WK 07/10/21 02/22/24 History Lymphatic Tincture Otc 1 dose PO QAM 07/10/21 02/22/24 History ascorbic acid (vitamin C) 500 mg 500 mg PO DAILY 03/25/23 02/22/24 History tablet (Vitamin C) omega-3 fatty acids 1,000 mg 1,000 mg PO WK 03/25/23 02/22/24 History capsule vitamin D3-vitamin K2 1 cap PO DAILY 02/15/24 02/22/24 History alprazolam 0.5 mg tablet 0.5 mg PO BID PRN Anxiety 02/22/24 02/22/24 History cyclobenzaprine 10 mg tablet 10 mg PO BID PRN muscle spasm #10 02/22/24 Rx tabs Hospital Stay Data Consultations 02/21/24 23:40 ED Decision to Admit Stat Procedures Performed Operation Date: 02/22/24 08:00 Actual Procedures p Right Hip Closed Reduction(Right) - Henrry Barcenas MD Diagnostic Imagining Performed 02/22/24 FL hip RT 2-3V Routine Pending Results Patient Have Any Pending Studies at Discharge: No Discharge Instructions Given to Patient (Per Discharging Provider) You were admitted for right hip dislocation You were brought to OR for reduction and hip placed in socket You did well with physical therapy. It is recommended to use Tylenol 650mg every 4 to 6 hours for pain You will be given a short course of cyclobenzaprine 10mg every 12 hours as n eeded for muscle spasms. Total Time Total Time Spent Total Time Spent (In Minutes): 35
--- NOTE | 2024-02-23 21:25 | Electrocardiogram Report ---
Test Reason : Blood Pressure : */* mmHG Vent. Rate : 65 BPM Atrial Rate : 65 BPM P-R Int : 144 ms QRS Dur : 80 ms QT Int : 436 ms P-R-T Axes : 50 24 36 degrees QTcB Int : 453 ms Normal sinus rhythm Low voltage QRS Borderline ECG When compared with ECG of 26-Mar-2023 02:26, No significant change was found Confirmed by Jamie Anderson ([id number]) on 02/23/2024 9:25:16 PM Referred By: REFERRED SELF Confirmed By: Jamie Anderson
== END 2024-02-22 13:57 | disposition home or self-care (01) | DRG 560 ==
LOC: ED 20:05 → EDINP 02-22 01:09 → 2N 02-22 04:31
DX: Z88.1 Allergy status to other antibiotic agents; F41.9 Anxiety disorder, unspecified; Y79.2 Prosthetic and other implants, materials and accessory orthopedic devices associated with adverse incidents; F17.210 Nicotine dependence, cigarettes, uncomplicated; E78.5 Hyperlipidemia, unspecified; S73.014A Posterior dislocation of right hip, initial encounter; X50.1XXA Overexertion from prolonged static or awkward postures, initial encounter; T84.020A Dislocation of internal right hip prosthesis, initial encounter; Z88.8 Allergy status to other drugs, medicaments and biological substances